=== PATIENT | female | born 1940 | race Caucasian/White ===

== ENCOUNTER 2019-05-07 10:03 | Observation (INO) | payer MEDICARE ==
[2019-05-07] MEDS ORDERED: IPRATROPIUM-ALBUTEROL 3 ML NEB INHALATION STA (10:33)
--- NOTE | 2019-05-07 11:25 | ED ---
SOB HPI - General Chief Complaint: Shortness of Breath Stated Complaint: SOB Time Seen by Provider: 05/07/19 10:10 Source: patient Mode of arrival: wheelchair Limitations: no limitations - History of Present Illness Initial Comments: The patient is a 78-year-old female with no past medical history who presents to the emergency department with reported shortness of breath. States that it is exertional shortness of breath that she's had for the past 8 days. Does admit to a productive cough with yellow sputum. Also has chills with no reported fevers. She denies any sick contacts or recent travel. She did not obtain a flu shot this year. Patient continues to smoke 1.5 packs of cigarettes per day however it has been less than she had sick. She admits to chest tightness however denies any chest pain. No ripping or tearing sensation to her back. Denies any abdominal pain, diarrhea, constipation or melanotic stools. She has taken Tylenol and Mucinex at home for her symptoms without relief. She has never seen a sales route driver. There are no alleviating, precipitating or modifying factors - Related Data Home Medications Medication Instructions Recorded Confirmed Acetaminophen Tab [Tylenol Tab] 325 - 650 mg PO Q4H PRN 05/07/19 05/07/19 Multivitamins, Thera [Multivitamin 1 tab PO DAILY 05/07/19 05/07/19 (formulary)] Allergies Allergy/AdvReac Type Severity Reaction Status Date / Time No Known Allergies Allergy Verified 05/07/19 11:17 Review of Systems ROS Statement: Those systems with pertinent positive or pertinent negative responses have been documented in the HPI. ROS Other: All systems not noted in ROS Statement are negative. Past Medical History Past Medical History: No Reported History History of Any Multi-Drug Resistant Organisms: None Reported Past Surgical History: Appendectomy, Tubal Ligation Past Psychological History: No Psychological Hx Reported Smoking Status: Current every day smoker Past Alcohol Use History: None Reported Past Drug Use History: None Reported - Past Family History Mother Family Medical History: No Reported History General Exam Limitations: no limitations General appearance: alert, in no apparent distress Head exam: Present: atraumatic, normocephalic, normal inspection Eye exam: Present: normal appearance, PERRL, EOMI. Absent: scleral icterus, conjunctival injection, periorbital swelling ENT exam: Present: normal exam, mucous membranes moist Neck exam: Present: normal inspection. Absent: tenderness, meningismus, lymphadenopathy Respiratory exam: Present: wheezes, accessory muscle use, decreased breath sounds, other (tachypnia). Absent: respiratory distress, rales, rhonchi, stridor Cardiovascular Exam: Present: normal rhythm, tachycardia, normal heart sounds. Absent: systolic murmur, diastolic murmur, rubs, gallop, clicks GI/Abdominal exam: Present: soft, normal bowel sounds. Absent: distended, tenderness, guarding, rebound, rigid Extremities exam: Present: normal inspection, full ROM, normal capillary refill. Absent: tenderness, pedal edema, joint swelling, calf tenderness Back exam: Present: normal inspection Neurological exam: Present: alert, oriented X3, CN II-XII intact Psychiatric exam: Present: normal affect, normal mood Skin exam: Present: warm, dry, intact, normal color. Absent: rash Course Vital Signs 05/07/19 05/07/19 05/07/19 10:07 10:42 10:53 Temperature 97.8 F Pulse Rate 96 96 96 Pulse Rate [ Pulse Oximetery ] Respiratory 20 Rate Blood Pressure 139/88 Blood Pressure [Right Arm] O2 Sat by Pulse 99 Oximetry 05/07/19 05/07/19 05/07/19 11:13 11:30 12:00 Temperature 101.1 F H Pulse Rate 118 H 111 H Pulse Rate [ Pulse Oximetery ] Respiratory 22 25 H Rate Blood Pressure 124/72 121/70 Blood Pressure [Right Arm] O2 Sat by Pulse 97 91 L Oximetry 05/07/19 05/07/19 05/07/19 12:30 13:00 13:30 Temperature 99.2 F Pulse Rate 112 H 101 H Pulse Rate [ Pulse Oximetery ] Respiratory 30 H 34 H Rate Blood Pressure 106/62 92/71 103/63 Blood Pressure [Right Arm] O2 Sat by Pulse 92 L 92 L Oximetry 05/07/19 05/07/19 05/07/19 14:00 14:30 15:00 Temperature Pulse Rate 93 93 Pulse Rate [ Pulse Oximetery ] Respiratory 29 H 31 H Rate Blood Pressure 113/63 109/65 Blood Pressure [Right Arm] O2 Sat by Pulse 94 L 93 L Oximetry 05/07/19 05/07/19 05/07/19 15:26 15:35 20:10 Temperature 98.3 F Pulse Rate 93 90 Pulse Rate [ 101 H Pulse Oximetery ] Respiratory 16 16 18 Rate Blood Pressure Blood Pressure 105/63 [Right Arm] O2 Sat by Pulse 93 L Oximetry 05/07/19 05/07/19 20:33 20:44 Temperature Pulse Rate 92 95 Pulse Rate [ Pulse Oximetery ] Respiratory Rate Blood Pressure Blood Pressure [Right Arm] O2 Sat by Pulse Oximetry Medical Decision Making - Medical Decision Making Pulmonary the patient was placed in room 6. A thorough history and physical exam is performed. Peripheral IV is established. The patient was given a DuoNeb breathing treatment. I did recommend laboratory studies. The patient does spike a temperature while within the emergency department. She has a temp of 101.1 and therefore she is given Motrin for fever control. Blood cultures were obtained. Laboratory studies demonstrated with also, 16.5. D-dimer elevated at 1.13. Alk phos 179. Influenza A and B are negative. Patient was originally sent over for chest x-ray which demonstrates COPD with interstitial change. Nodular density right lower lobe. Because of the nodular density with elevated d-dimer I did perform a CTA the patient's chest which demonstrates no pulmonary wasn't. Multiple densities within the right mid and lower lung field. Metastatic disease should be considered. There is also a soft tissue density within the right mid lung. I discussed these results with the patient. She was given a dose of Rocephin and azithromycin. I did recommend hospital admission and she is Sirs 4/4 positive. Patient does agree to this. I discussed case with Dr. Yoon accepted admission. I will place pulmonology on consult. The patient remained in stable condition awaiting a bed on the floor - Lab Data Result diagrams: 05/08/19 08:00 05/11/19 11:34 Lab Results 05/07/19 05/07/19 05/07/19 Range/Units 00:15 04:10 11:03 WBC 16.5 H (3.8-10.6) k/uL RBC 4.34 (3.80-5.40) m/uL Hgb 12.9 (11.4-16.0) gm/dL Hct 37.7 (34.0-46.0) % MCV 86.8 (80.0-100.0) fL MCH 29.6 (25.0-35.0) pg MCHC 34.1 (31.0-37.0) g/dL RDW 14.7 (11.5-15.5) % Plt Count 226 (150-450) k/uL Neutrophils % 86 % Lymphocytes % 8 % Monocytes % 4 % Eosinophils % 1 % Basophils % 0 % Neutrophils # 14.1 H (1.3-7.7) k/uL Lymphocytes # 1.4 (1.0-4.8) k/uL Monocytes # 0.6 (0-1.0) k/uL Eosinophils # 0.1 (0-0.7) k/uL Basophils # 0.0 (0-0.2) k/uL D-Dimer (<0.60) mg/L FEU Sodium (137-145) mmol/L Potassium (3.5-5.1) mmol/L Chloride (98-107) mmol/L Carbon Dioxide (22-30) mmol/L Anion Gap mmol/L BUN (7-17) mg/dL Creatinine (0.52-1.04) mg/dL Est GFR (CKD-EPI)AfAm (>60 ml/min/1.73 sqM) Est GFR (CKD-EPI)NonAf (>60 ml/min/1.73 sqM) Glucose (74-99) mg/dL Calcium (8.4-10.2) mg/dL Total Bilirubin (0.2-1.3) mg/dL AST (14-36) U/L ALT (9-52) U/L Alkaline Phosphatase (38-126) U/L Troponin I <0.012 (0.000-0.034) ng/mL NT-Pro-B Natriuret Pep pg/mL Total Protein (6.3-8.2) g/dL Albumin (3.5-5.0) g/dL Influenza Type A RNA (Not Detectd) Influenza Type B (PCR) (Not Detectd) Urine Legionella Ag Not detected (Not detected) 05/07/19 05/07/19 05/07/19 Range/Units 11:03 11:03 11:03 WBC (3.8-10.6) k/uL RBC (3.80-5.40) m/uL Hgb (11.4-16.0) gm/dL Hct (34.0-46.0) % MCV (80.0-100.0) fL MCH (25.0-35.0) pg MCHC (31.0-37.0) g/dL RDW (11.5-15.5) % Plt Count (150-450) k/uL Neutrophils % % Lymphocytes % % Monocytes % % Eosinophils % % Basophils % % Neutrophils # (1.3-7.7) k/uL Lymphocytes # (1.0-4.8) k/uL Monocytes # (0-1.0) k/uL Eosinophils # (0-0.7) k/uL Basophils # (0-0.2) k/uL D-Dimer 1.13 H (<0.60) mg/L FEU Sodium 137 (137-145) mmol/L Potassium 4.6 (3.5-5.1) mmol/L Chloride 101 (98-107) mmol/L Carbon Dioxide 24 (22-30) mmol/L Anion Gap 12 mmol/L BUN 11 (7-17) mg/dL Creatinine 0.47 L (0.52-1.04) mg/dL Est GFR (CKD-EPI)AfAm >90 (>60 ml/min/1.73 sqM) Est GFR (CKD-EPI)NonAf >90 (>60 ml/min/1.73 sqM) Glucose 96 (74-99) mg/dL Calcium 10.1 (8.4-10.2) mg/dL Total Bilirubin 0.6 (0.2-1.3) mg/dL AST 36 (14-36) U/L ALT 72 H (9-52) U/L Alkaline Phosphatase 179 H (38-126) U/L Troponin I (0.000-0.034) ng/mL NT-Pro-B Natriuret Pep 178 pg/mL Total Protein 7.5 (6.3-8.2) g/dL Albumin 4.0 (3.5-5.0) g/dL Influenza Type A RNA (Not Detectd) Influenza Type B (PCR) (Not Detectd) Urine Legionella Ag (Not detected) 05/07/19 Range/Units 11:03 WBC (3.8-10.6) k/uL RBC (3.80-5.40) m/uL Hgb (11.4-16.0) gm/dL Hct (34.0-46.0) % MCV (80.0-100.0) fL MCH (25.0-35.0) pg MCHC (31.0-37.0) g/dL RDW (11.5-15.5) % Plt Count (150-450) k/uL Neutrophils % % Lymphocytes % % Monocytes % % Eosinophils % % Basophils % % Neutrophils # (1.3-7.7) k/uL Lymphocytes # (1.0-4.8) k/uL Monocytes # (0-1.0) k/uL Eosinophils # (0-0.7) k/uL Basophils # (0-0.2) k/uL D-Dimer (<0.60) mg/L FEU Sodium (137-145) mmol/L Potassium (3.5-5.1) mmol/L Chloride (98-107) mmol/L Carbon Dioxide (22-30) mmol/L Anion Gap mmol/L BUN (7-17) mg/dL Creatinine (0.52-1.04) mg/dL Est GFR (CKD-EPI)AfAm (>60 ml/min/1.73 sqM) Est GFR (CKD-EPI)NonAf (>60 ml/min/1.73 sqM) Glucose (74-99) mg/dL Calcium (8.4-10.2) mg/dL Total Bilirubin (0.2-1.3) mg/dL AST (14-36) U/L ALT (9-52) U/L Alkaline Phosphatase (38-126) U/L Troponin I (0.000-0.034) ng/mL NT-Pro-B Natriuret Pep pg/mL Total Protein (6.3-8.2) g/dL Albumin (3.5-5.0) g/dL Influenza Type A RNA Not Detected (Not Detectd) Influenza Type B (PCR) Not Detected (Not Detectd) Urine Legionella Ag (Not detected) - EKG Data EKG Comments: EKG demonstrates a sinus tachycardia at a ventricular rate of 132. MS interval 142. QRS 82. QTC of 433. There are no acute ST segment elevations or depressions concerning for ischemic changes Disposition Clinical Impression: Acute respiratory failure, Pneumonia Disposition: ADMITTED IP TO THIS HOSP Condition: Stable Is patient prescribed a controlled substance at d/c from ED?: No Decision to Admit Reason: Admit from EC Decision Date: 05/07/19 Decision Time: 14:40
[2019-05-07] MEDS ORDERED: IBUPROFEN 600 MG TAB PO STA (11:30)
[2019-05-07 11:50] LABS: Basophils % (A) 0 %; Eosinophils # (A) 0.1 k/uL (0-0.7); Eosinophils % (A) 1 %; HCT 37.7 % (34.0-46.0); HGB 12.9 gm/dL (11.4-16.0); Lymphocytes # (A) 1.4 k/uL (1.0-4.8); Lymphocytes % (A) 8 %; MCH 29.6 pg (25.0-35.0); MCHC 34.1 g/dL (31.0-37.0); MCV 86.8 fL (80.0-100.0); Mean Platelet Volume 9.2; Monocytes # (A) 0.6 k/uL (0-1.0); Monocytes % (A) 4 %; Neutrophils # (A) 14.1 k/uL (1.3-7.7); Neutrophils % (A) 86 %; Platelet Count 226 k/uL (150-450); RBC 4.34 m/uL (3.80-5.40); RDW 14.7 % (11.5-15.5); WBC 16.5 k/uL (3.8-10.6)
[2019-05-07 12:03] LABS: ALT 72 U/L (9-52); AST 36 U/L (14-36); African American GFR (CKD) >90 (>60 ml/min/1.73 sqM); Alkaline Phosphatase 179 U/L (38-126); Anion Gap 12 mmol/L; Blood Urea Nitrogen 11 mg/dL (7-17); Calcium 10.1 mg/dL (8.4-10.2); Carbon Dioxide 24 mmol/L (22-30); Chloride 101 mmol/L (98-107); Glucose 96 mg/dL (74-99); Non-African American GFR(CKD) >90 (>60 ml/min/1.73 sqM); Potassium 4.6 mmol/L (3.5-5.1); Sodium 137 mmol/L (137-145); Total Bilirubin 0.6 mg/dL (0.2-1.3); Total Protein 7.5 g/dL (6.3-8.2)
--- NOTE | 2019-05-07 12:03 | XR ---
EXAMINATION TYPE: XR chest 2V DATE OF EXAM: 05/07/2019 COMPARISON: NONE TECHNIQUE: PA and lateral views submitted. HISTORY: sob FINDINGS: The lungs are clear and there is no pneumothorax, pleural effusion, or focal pneumonia. Diffuse int erstitial pattern. Hyperinflation suggests COPD. Diffuse osteopenia. Curvature the spine with degener ative changes. Nodular density involving the right lower lobe. IMPRESSION: 1. COPD with interstitial changes which could be on the basis of chronic interstitial lung disease or interstitial pneumonitis correlate clinically. 2. Nodular density right lower lobe recommend bilateral oblique views of the chest or CT chest.
[2019-05-07] MEDS ORDERED: AZITHROMYCIN 500 MG in SODIUM CHLORIDE 0.9% 250 ML IVPB STA (12:52)
[2019-05-07] MEDS ORDERED: cefTRIAXone IN SWFI 1,000 MG/10 ML SYRINGE IVP STA (12:52)
--- NOTE | 2019-05-07 14:05 | CT ---
CT CHEST FOR PULMONARY EMBOLISM. EXAMINATION TYPE: CT chest angio for PE DATE OF EXAM: 05/07/2019 INDICATION: SOB, chest pain CT DLP: 172.1 mGycm, Automated exposure control for dose reduction was used. CONTRAST: Patient injected with 100 mL of Isovue 370. COMPARISON: None TECHNIQUE: CT of the chest is performed on a spiral scan at 2 mm thick sections. Study is performed with intravenous contrast timed for evaluation for pulmonary embolism. This will limit additional po rtions of the evaluation. 3-D MIP images reconstructed by the technologist are reviewed on the compu ter in the coronal and sagittal planes. FINDINGS: No persistent filling defects are evident to suggest an acute pulmonary embolism. No mediastinal or hilar adenopathy enlarged by CT criteria is evident. The ascending aorta diameter at the level of the main pulmonary artery is 3.4 cm. The main pulmonary artery diameter at the bifur cation is 2.3 cm. Some right apical thickening is present. Emphysematous changes are present bilaterally. There is an irregular density within the posterior lateral right midlung measuring 1.2 cm. Series 406 image 54. Neoplasm should be considered. There is an ill-defined area of increased density within th e right midlung measuring 0.5 cm. Series 406 image 72. Areas of increased density in the right lower lobe. Emphysematous blebs and bulla are present. Pneumonitis changes are present. There may be a 0.5 cm density in the posterior lateral right lower lobe. Series 406 image 108. There is a density within the right lower lobe measuring 2.5 x 1.5 cm. Series 406 image 122. There are some adjacent soft tiss ue type density measuring 0.7-0.5 cm in size. Series 406 image 123. A 0.7 cm density may be in the po sterior right lung base. Series 406 image 129 additional soft tissue density or pneumonitis changes i n the posterior medial right lung base measuring 1.9 x 1.1 cm. Series [address] section through the upper abdomen. There is a 1.0 cm hypodensity within the right lobe randy er measuring 5 Hounsfield units most likely is a hepatic cyst. IMPRESSIONS: 1. No acute pulmonary embolism. 2. Multiple densities within the right mid and lower lung field. Metastatic disease should be conside red. This can be compatible with consolidation in the proper clinical setting. Follow-up is recommend ed. 3. Soft tissue density within the right midlung appears more suspicious for neoplastic process. PET/C T can be performed when clinically appropriate.
[2019-05-07] MEDS ORDERED: IBUPROFEN 400 MG TAB PO PRN (14:41)
[2019-05-07] MEDS ORDERED: ACETAMINOPHEN TAB 325 MG TAB PO PRN (14:41)
[2019-05-07] MEDS ORDERED: NALOXONE 0.4 MG/ML 1 ML VIAL IV PRN (14:41)
[2019-05-07] MEDS: IPRATROPIUM-ALBUTEROL 3 ML NEB INHALATION SCH ×2 (15:26→20:31)
[2019-05-07] MEDS ORDERED: MELATONIN 3 MG TABLET PO PRN (21:14)
[2019-05-07] MEDS ORDERED: HYDROcodone/APAP 5-325MG 1 EACH TAB PO PRN (21:14)
[2019-05-07] MEDS ORDERED: ALPRAZolam 0.25 MG TAB PO PRN (21:14)
[2019-05-07] MEDS ORDERED: TEMAZEPAM 15 MG CAP PO PRN (21:14)
[2019-05-07 23:16] LABS: ALT 54 U/L (9-52); AST 27 U/L (14-36); African American GFR (CKD) >90 (>60 ml/min/1.73 sqM); Albumin 3.3 g/dL (3.5-5.0); Alkaline Phosphatase 146 U/L (38-126); Anion Gap 7 mmol/L; Blood Urea Nitrogen 16 mg/dL (7-17); Calcium 9.2 mg/dL (8.4-10.2); Carbon Dioxide 26 mmol/L (22-30); Chloride 103 mmol/L (98-107); Glucose 109 mg/dL (74-99); Non-African American GFR(CKD) >90 (>60 ml/min/1.73 sqM); Potassium 4.7 mmol/L (3.5-5.1); Sodium 136 mmol/L (137-145); Total Bilirubin 0.3 mg/dL (0.2-1.3); Total Protein 6.6 g/dL (6.3-8.2)
[2019-05-08] MEDS: IPRATROPIUM-ALBUTEROL 3 ML NEB INHALATION SCH ×6 (00:02→20:20)
--- NOTE | 2019-05-08 05:23 | HP ---
HISTORY AND PHYSICAL DATE OF SERVICE: 05/07/2019 CHIEF COMPLAINT: Shortness of breath and cough. HISTORY OF PRESENT ILLNESS: This 78-year-old woman with a past medical history of multiple medical problems including tubal ligation, appendectomy, history of nicotine dependence, being followed by Dr. Albarran in the outpatient setting was not feeling well over the past several days. The patient is having progressive cough and sputum. The patient also has exertional shortness of breath for the last 8 days, which is increased in intensity. Because of increasing sputum, patient came to [facility] and was admitted to the hospital for further evaluation and treatment. Patient continues to smoke about 1-1/2 packs per day. The initial chest x-ray showed some interstitial shadows and CT angio of the chest showed no evidence of pulmonary embolism, but showed multiple bilateral initial shadows and pneumonia with possibly some cavitary lesions mainly in the right lower lobe also. Patient was admitted to the hospital for further evaluation and treatment. There is some chest tightness according to her. There is no history of fever, rigors or chills. No history of headache, loss of consciousness, seizures. PAST MEDICAL HISTORY: History of appendectomy, tubal ligation, history nicotine dependence. MEDICATION: Home medications are multivitamins, Tylenol p.r.n. ALLERGIES: None. FAMILY HISTORY: No history of heart disease or strokes in the family. SOCIAL HISTORY: History of smoking one and one half package of cigarettes a day. No history of alcohol intake. REVIEW OF SYSTEMS: ENT: Diminished vision. Diminished hearing. CARDIOVASCULAR system as mentioned earlier. RESPIRATIONS as mentioned earlier. GI no nausea or vomiting. no dysuria. Nervous system: No numbness or weakness. Allergy/Immunology: No asthma or hayfever. MUSCULOSKELETAL as mentioned earlier. HEMATOLOGY: No history of anemia. ENDOCRINE: No history of diabetes or hypothyroidism. CONSTITUTIONAL: As mentioned earlier. DERMATOLOGY: Negative. RHEUMATOLOGY negative. PSYCHIATRY as mentioned earlier. PHYSICAL EXAMINATION: GENERAL: The patient is alert and oriented x3. The patient is severely emaciated, generalized emaciation. VITAL SIGNS: Pulse is 101. Blood pressure 105/63, respiration 18, temperature 98.3, pulse ox 93 percent on room air. HEENT: Conjunctivae normal. Oral mucosa moist. NECK is no jugular venous distention. No carotid bruit. No lymph node enlargement. CARDIOVASCULAR system: S1, S2 muffled. No S3, no S4. RESPIRATORY: Breath sounds diminished in the bases. Bilateral scattered rhonchi and crackles. Expiratory wheezing also present. ABDOMEN: Soft, nontender. No mass palpable. LEGS: No edema. No swelling. NERVOUS SYSTEM: Higher functions as mentioned earlier. Moves all 4 limbs. No focal motor or sensory deficit. LYMPHATICS: No lymph nodes palpable in the neck, axillae or groin. SKIN: No ulcer, rash or bleeding. JOINTS: No active deforming arthropathy. LAB STUDIES: WBC 16.5. D-dimer to 1.13, ALT 72, alkaline phosphatase 117. ASSESSMENT: 1. Acute bilateral interstitial pneumonia or bronchopneumonia with possible severe acute respiratory syndrome present on admission, right more than the left. 2. Increased WBC. 3. Increased D-dimer with no evidence of pulmonary embolism. 4. Increased ALT and alkaline phosphatase. 5. History of appendectomy. 6. History of tubal ligation. 7. History of continued ongoing nicotine dependence. 8. Severe protein calorie malnutrition with BMI of 18.6. RECOMMENDATIONS AND DISCUSSION: This 78-year-old woman who presented with multiple medical issues, at this time, I recommend to continue current medications, management and symptomatic treatment. We will initiate broad-spectrum IV antibiotics, bronchodilators, pulmonary consultation from Dr. Boucher for possible bronchoscopy and further evaluation. Otherwise, sputum culture also will be obtained including the baseline testing. Guarded prognosis because of multiple complex medical issues. Symptomatic treatment also provided. Smoking cessation has been recommended. A copy of dictation being forwarded to Dr. Albarran who is the primary physician. Prognosis guarded. MMODL / IJN: [id number] /
[2019-05-08] MEDS: MULTIVITAMINS, THERA 1 EACH TAB PO SCH (07:33)
[2019-05-08] MEDS: HEPARIN SODIUM,PORCINE 5,000 UNIT/ML 1 ML VIAL SQ SCH ×2 (07:34→20:06)
[2019-05-08] MEDS: NICOTINE 14MG/24HR PATCH TRANSDERM SCH (07:35)
[2019-05-08] MEDS: PANTOPRAZOLE 40 MG TABLET PO SCH (07:40)
[2019-05-08 08:40] LABS: Basophils % (A) 0 %; Eosinophils % (A) 0 %; HCT 33.6 % (34.0-46.0); HGB 11.3 gm/dL (11.4-16.0); Lymphocytes % (A) 21 %; MCH 29.4 pg (25.0-35.0); MCHC 33.6 g/dL (31.0-37.0); MCV 87.5 fL (80.0-100.0); Mean Platelet Volume 10.7; Monocytes # (A) 0.4 k/uL (0-1.0); Monocytes % (A) 4 %; Neutrophils % (A) 72 %; Platelet Count 207 k/uL (150-450); RBC 3.84 m/uL (3.80-5.40); RDW 14.9 % (11.5-15.5); WBC 9.7 k/uL (3.8-10.6)
[2019-05-08 08:45] LABS: African American GFR (CKD) >90 (>60 ml/min/1.73 sqM); Anion Gap 9 mmol/L; Blood Urea Nitrogen 10 mg/dL (7-17); Calcium 9.2 mg/dL (8.4-10.2); Carbon Dioxide 27 mmol/L (22-30); Chloride 102 mmol/L (98-107); Glucose 146 mg/dL (74-99); Non-African American GFR(CKD) >90 (>60 ml/min/1.73 sqM); Potassium 4.5 mmol/L (3.5-5.1); Sodium 138 mmol/L (137-145)
[2019-05-08] MEDS ORDERED: AZITHROMYCIN 500 MG in SODIUM CHLORIDE 0.9% 250 ML IVPB SCH (09:00)
[2019-05-08 11:56] VITALS: BMI 18.6
--- NOTE | 2019-05-08 15:08 | P.CNPUL ---
History of Present Illness Consult date: 05/08/19 Requesting physician: Bob Yoon Reason for consult: dyspnea, cough, chest pain, pneumonia Chief complaint: Shortness of breath, cough with phlegm production History of present illness: This is a 78-year-old white female patient of Dr. Albarran, although she has not seen him in the last 2 or 3 years, with history of 47 years of smoking, 1-1/2 packs per day, previous history of pneumonia, history of multiple sclerosis and patient used to be under the care of Dr. Vaughn not on any maintenance med ications for it, patient takes no prescription medications. Patient came into the emergency department on 05/07/2019 for evaluation of worsening shortness of breath, patient complained of having a bad cold for last 2 weeks, with cough, sinus headaches, yellow phlegm production. Yesterday her breathing got particularly worse, and patient was having worsening cough, and soreness across the upper back in the rib cage, denied any hemoptysis, patient was febrile on admission, with a temp of 101.1 degrees Fahrenheit, she is 92% on room air, hemodynamically stable, chest x-ray was completed showing COPD with interstitial changes and nodular density in the right lower lobe, and the CTA chest was c ompleted showing no evidence of pulmonary embolism, however did show multiple densities within the right mid and lower lung field, and soft tissue density within the right midlung was suspicious for neoplastic process. Admission blood work showed leukocytosis with white blood cell count is 16.5, hemoglobin was 12.9, electrolytes and renal profile were unremarkable, ALT and alkaline phosphatase were mildly elevated at 72 and 179 respectively, 3 sets of troponins were negative, proBNP was within normal limits at 178, influenza screen was negative. Patient was started on Rocephin and Zithromax, neb bronchodilators, and were consulted in regards to right mid and lower lung pneumonia with cons ideration to neoplastic process that could not totally be excluded Review of Systems All systems: negative Constitutional: Denies chills, Denies fever Eyes: denies blurred vision, denies pain Ears, nose, mouth and throat: Denies headache, Denies sore throat Cardiovascular: Denies shortness of breath Respiratory: Reports cough with sputum, Reports dyspnea, Denies cough Gastrointestinal: Denies abdominal pain, Denies diarrhea, Denies nausea, Denies vomiting Genitourinary: Denies dysuria, Denies hematuria Musculoskeletal: Denies myalgias Integumentary: Denies pruritus, Denies rash Neurological: Denies numbness, Denies weakness Psychiatric: Denies anxiety, Denies depression Endocrine: Denies fatigue, Denies weight change Past Medical History Past Medical History: No Reported History History of Any Multi-Drug Resistant Organisms: None Reported Past Surgical History: Appendectomy, Tubal Ligation Past Psychological History: No Psychological Hx Reported Smoking Status: Current every day smoker Past Alcohol Use History: None Reported Past Drug Use History: None Reported - Past Family History Mother Family Medical History: No Reported History Medications and Allergies Home Medications Medication Instructions Recorded Confirmed Type Acetaminophen Tab [Tylenol Tab] 325 - 650 mg PO Q4H PRN 05/07/19 05/07/19 History Multivitamins, Thera [Multivitamin 1 tab PO DAILY 05/07/19 05/07/19 History (formulary)] Allergies Allergy/AdvReac Type Severity Reaction Status Date / Time No Known Allergies Allergy Verified 05/07/19 11:17 Physical Exam Vitals: Vital Signs Temp Pulse Pulse Resp BP BP Pulse Ox 05/08/19 12:31 97.5 F L 94 16 119/56 92 L 05/08/19 11:52 96 05/08/19 11:40 100 05/08/19 07:58 92 05/08/19 07:45 92 05/08/19 05:39 98.4 F 104 H 16 103/57 92 L 05/08/19 00:10 102 H 18 05/07/19 20:44 95 05/07/19 20:33 92 05/07/19 20:10 98.3 F 101 H 18 105/63 93 L 05/07/19 15:35 90 16 05/07/19 15:26 93 16 05/07/19 15:00 109/65 Intake and Output 05/07/19 05/08/19 05/08/19 22:59 06:59 14:59 Intake Total 240 120 120 Balance 240 120 120 Intake: Oral 240 120 120 Other: # Voids 1 2 Weight 47.627 kg 47.627 kg GENERAL EXAM: Alert, very pleasant, thin 78-year-old white female on room air, with a pulse ox of 92% comfortable in no apparent distress. HEAD: Normocephalic/atraumatic. EYES: Normal reaction of pupils, equal size. Conjunctiva pink, sclera white. NOSE: Clear with pink turbinates. THROAT: No erythema or exudates. NECK: No masses, no JVD, no thyroid enlargement, no adenopathy. CHEST: No chest wall deformity. Symmetrical expansion. LUNGS: Equal air entry with diffuse crackles at the bases, diminished breath sounds bilaterally, no wheeze, rhonchi or dullness. CVS: Regular rate and rhythm, normal S1 and S2, no gallops, no murmurs, no rubs ABDOMEN: Soft, nontender. No hepatosplenomegaly, normal bowel sounds, no guarding or rigidity. EXTREMITIES: No clubbing, no edema, no cyanosis, 2+ pulses and upper and lower extremities. MUSCULOSKELETAL: Muscle strength and tone normal. SPINE: No scoliosis or deformity SKIN: No rashes CENTRAL NERVOUS SYSTEM: Alert and oriented -3. No focal deficits, tone is normal in all 4 extremities. PSYCHIATRIC: Alert and oriented -3. Appropriate affect. Intact judgment and insight. Results - Laboratory Findings CBC and BMP: 05/08/19 08:00 05/08/19 08:00 PT/INR, D-dimer D-Dimer 1.13 mg/L FEU (<0.60) H 05/07/19 11:03 Abnormal lab findings: Abnormal Labs 05/07/19 05/07/19 05/07/19 11:03 11:03 11:03 WBC 16.5 H Hgb Hct Neutrophils # 14.1 H D-Dimer 1.13 H Sodium Creatinine 0.47 L Glucose ALT 72 H Alkaline Phosphatase 179 H Albumin 05/07/19 05/08/19 05/08/19 22:51 08:00 08:00 WBC Hgb 11.3 L Hct 33.6 L Neutrophils # D-Dimer Sodium 136 L Creatinine Glucose 109 H 146 H ALT 54 H Alkaline Phosphatase 146 H Albumin 3.3 L - Diagnostic Findings Chest x-ray: report reviewed, image reviewed CT scan - chest: report reviewed, image reviewed Assessment and Plan Plan: Assessment: #1. Acute dyspnea related to right middle and right lower lobe pneumonia, c ommunity acquired. CTA chest was negative for evidence of pulmonary embolism, but did show multiple densities in the right mid and lower lung ag. Soft tissue density within the right midlung is suspicious for neoplastic process and will be followed up #2. Extensive history of smoking, 47 years of one half packs per day #3. Previous history of pneumonia #4. Recent history of upper respiratory infection #5. Patient gives history of multiple sclerosis, used to follow with neurology, not on maintenance treatment Plan: Continue current antibiotics, nebulized treatments, send a sputum for culture. Influenza screen was negative, CT chest reviewed showing right middle and right lower lobe consolidation, likely related to pneumonia, of the possibility of underlying malignancy is not completely excluded, and patient will be followed closely to monitor for improvement. Smoking cessation was recommended. Continue GI and DVT prophylaxis. I performed a history & physical examination of the patient and discussed their management with my nurse practitioner, Christi Crespo. I reviewed the nurse practitioner's note and agree with the documented findings and plan of care. Lung sounds are positive for bibasilar rales. The findings and the impression was discussed with the patient. I attest to the documentation by the nurse practitioner. Time with Patient: Greater than 30
--- NOTE | 2019-05-08 18:08 | PN ---
PROGRESS NOTE DATE OF SERVICE: 05/08/2019 This 78-year-old woman who was admitted with acute bilateral multifocal pneumonia is being closely monitored. Patient was started on IV antibiotics. White count is 7.5 at this time. Cultures are pending at this time. Influenza is negative. The patient was also seen by Dr. Boucher today, who recommended continuing the antibiotics and continuing to monitor. Bronchoscopy is not being planned at this time. Past medical history reviewed. REVIEW OF SYSTEMS: CARDIOVASCULAR SYSTEM: As mentioned earlier. RESPIRATORY SYSTEM: As mentioned earlier. GI: No nausea, vomiting. : No dysuria or retention. NERVOUS SYSTEM: No numbness, weakness. CURRENT MEDICATIONS: Reviewed. They include: 1. Tylenol p.r.n. 2. Lapel 5 mg. 3. DuoNeb q.i.d. and p.r.n. 4. Xanax 0.25 t.i.d. 5. Zithromax 500 mg p.o. daily. 6. Rocephin 1 gram daily. 7. Heparin 5000 units subcutaneously b.i.d. 8. Motrin 400 mg. 9. Melatonin 3 mg at bedtime. 10.Multivitamins. 11.Narcan. 12.Habitrol. 13.Protonix. 14.Restoril. PHYSICAL EXAMINATION: Patient is alert, oriented x3. Pulse 94, blood pressure 119/56, respirations 16, temperature 97.4, pulse ox 92% on room air. HEENT: Conjunctivae normal. NECK: No jugular venous distention. CARDIOVASCULAR SYSTEM: S1, S2 muffled. RESPIRATORY SYSTEM: Breath sounds diminished at the bases. A few scattered rhonchi and crackles. Expiratory wheezing also present. ABDOMEN: Soft, non-tender. LEGS: No edema. No swelling. NERVOUS SYSTEM: Mild diffuse weakness and wasting also present. LABS: WBC 9.7, hemoglobin 11.3, sodium 138. ASSESSMENT: 1. Acute bilateral interstitial pneumonia or bronchopneumonia with systemic inflammatory response syndrome, present on admission, right more than the left. 2. Increased white count. 3. Possible chronic obstructive pulmonary disease. 4. Increased D-dimer with no evidence of pulmonary embolism. 5. Increased ALT and alkaline phosphatase. 6. History of appendectomy. 7. Tubal ligation. 8. History of continued ongoing nicotine dependence. 9. Severe protein-calorie malnutrition with a body mass index of 18.6. RECOMMENDATIONS AND DISCUSSION: I recommend to continue current medications, continue with the monitoring, symptomatic treatment. Otherwise at this time I would recommend continuing with the antibiotics. D- dimer is 1.13. There is no evidence of pulmonary embolism. Closely follow with Dr. Boucher and continue to monitor. Further recommendations to follow. Prognosis is guarded. MMODL / IJN: [id number] /
[2019-05-08] MEDS ORDERED: IPRATROPIUM-ALBUTEROL 3 ML NEB INHALATION PRN (21:30)
[2019-05-09] MEDS: PANTOPRAZOLE 40 MG TABLET PO SCH (09:00)
[2019-05-09] MEDS: MULTIVITAMINS, THERA 1 EACH TAB PO SCH (09:00)
[2019-05-09] MEDS: HEPARIN SODIUM,PORCINE 5,000 UNIT/ML 1 ML VIAL SQ SCH ×2 (09:00→19:49)
[2019-05-09] MEDS: AZITHROMYCIN 500 MG TAB PO SCH (09:00)
[2019-05-09] MEDS: NICOTINE 14MG/24HR PATCH TRANSDERM SCH (09:00)
[2019-05-09] MEDS: IPRATROPIUM-ALBUTEROL 3 ML NEB INHALATION SCH ×4 (10:01→20:54)
--- NOTE | 2019-05-09 13:48 | P.PN ---
Subjective Progress Note Date: 05/09/19 Principal diagnosis: Acute community-acquired right lobe and right lower lobe pneumonia This is a 78-year-old white female patient of Dr. Albarran, although she has not seen him in the last 2 or 3 years, with history of 47 years of smoking, 1-1/2 packs per day, previous history of pneumonia, history of multiple sclerosis and patient used to be under the care of Dr. Vaughn not on any maintenance medications for it, patient takes no prescription medications. Patient came into the emergency department on 05/07/2019 for evaluation of worsening shortness of breath, patient complained of having a bad cold for last 2 weeks, with cough, sinus headaches, yellow phlegm production. Yesterday her breathing got particularly worse, and patient was having worsening cough, and soreness a cross the upper back in the rib cage, denied any hemoptysis, patient was febrile on admission, with a temp of 101.1 degrees Fahrenheit, she is 92% on room air, hemodynamically stable, chest x-ray was completed showing COPD with interstitial changes and nodular density in the right lower lobe, and the CTA chest was completed showing no evidence of pulmonary embolism, however did show multiple densities within the right mid and lower lung field, and soft tissue density within the right midlung was suspicious for neoplastic process. Admission blood work showed leukocytosis with white blood cell count is 16.5, hemoglobin was 12.9, electrolytes and renal profile were unremarkable, ALT and alkaline phosphatase were mildly elevated at 72 and 179 respectively, 3 sets of troponins were negative, proBNP was within normal limits at 178, influenza screen was negative. Patient was started on Rocephin and Zithromax, neb bronchodilators, and were consulted in regards to right mid and lower lung pneumonia with consideration to neoplastic process that could not totally be excluded Reevaluated today on 05/09/2019, patient is feeling a bit better, breathing a bit easier, less cough, less wheezing, less shortness of breath, and no further episodes of fever. Her temp is 98.1 today, blood pressure is stable, O2 saturations 95% on room air. Patient is presently on antibiotics and bronchodilators, and she was made aware again by me today about the findings on her CT of the chest, and she was definitely need a close follow-up on outpatient basis, as there may be some suspicion for possible underlying malignancy involving the right lower lobe. I would recommend repeat CT of the chest and a month, and may even consider a PET scan on this patient. She does have nodular infiltrates, and malignancy is not entirely ruled out. Objective - Vital Signs Vital signs: Vital Signs Temp 98.1 F 05/09/19 12:56 Pulse 93 05/09/19 12:56 Resp 17 05/09/19 12:56 BP 123/69 05/09/19 12:56 Pulse Ox 95 05/09/19 12:56 Intake & Output 05/08/19 05/09/19 05/09/19 18:59 06:59 18:59 Intake Total 240 Balance 240 Weight 47.627 kg Intake: Oral 240 Other: Voiding Method Toilet Toilet # Voids 2 1 - Exam GENERAL EXAM: Alert, very pleasant, thin 78-year-old white female on room air, in no distress HEAD: Normocephalic/atraumatic. ENT: PERRLA, EOMI, no active, dry mucous membranes. No JVD, no thyromegaly. CHEST: No chest wall deformity. Symmetrical expansion. LUNGS: Minimal fine crackles at the bases especially at the right base, no whee zes. CVS: Regular rate and rhythm, normal S1 and S2, no gallops, no murmurs, no rubs ABDOMEN: Soft, nontender. No hepatosplenomegaly, normal bowel sounds, no guarding or rigidity. EXTREMITIES: No clubbing, no edema, no cyanosis, 2+ pulses and upper and lower extremities. MUSCULOSKELETAL: Muscle strength and tone normal. SPINE: No scoliosis or deformity SKIN: No rashes CENTRAL NERVOUS SYSTEM: No gross focal deficits, alert oriented 3. PSYCHIATRIC: Normal mood, affect and normal mental status examination - Labs CBC & Chem 7: 05/08/19 08:00 05/08/19 08:00 Labs: Microbiology - Last 24 Hours (Table) 05/08/19 07:50 Gram Stain - Preliminary Sputum Sputum Culture - Preliminary 05/07/19 11:03 Blood Culture - Preliminary Blood No Growth after 24 hours Assessment and Plan Assessment: #1. Acute community-acquired right middle lobe and right lower lobe pneumonia, however the findings on the CT of the chest are concerning for possible underlying malignancy. Hence the patient will be treated empirically with antibiotics, bronchodilators, and she will need a follow-up CT of the chest in the next month, ostomy consider a PET scan on outpatient basis. May even require navigational bronchoscopy in the future. #2. Extensive history of smoking, 47 years of one half packs per day #3. Previous history of pneumonia #4. Recent history of upper respiratory infection #5. Patient gives history of multiple sclerosis, used to follow with neurology, not on maintenance treatment #6 suspect acute exacerbation of COPD. Hence we'll continue bronchodilators. Recommendation: Continue present treatment plan including bronchodilators, antibiotics, steroids, and possibly repeat the chest x-ray on Saturday, if not any worse, consider discharge planning by Saturday, and she should have follow-up in our office on outpatient basis, patient may eventually require bronchoscopy for further evaluation of the abnormal process in the right middle lobe and right lower lobe especially if it doesn't resolve. Patient was made aware of this, and verbalized understanding of communication discussed Time with Patient: Less than 30
--- NOTE | 2019-05-09 17:06 | XR ---
EXAMINATION TYPE: XR chest 1V portable DATE OF EXAM: 05/09/2019 COMPARISON: 05/07/2019 HISTORY: Follow-up pneumonia TECHNIQUE: Single frontal view of the chest is obtained. FINDINGS: Suspicion for right lower lobe pulmonary nodule. Hyperinflation suggests COPD. Vague ill-d efined nodule right upper lobe. Coarsened interstitium. Diffuse osteopenia. Atherosclerotic change ao rta. No pleural effusion or focal pneumonia. IMPRESSION: 1. Correlate for COPD. Interstitial changes could be chronic in the basis of chronic interstitial fatmata g disease. 2. Multiple pulmonary nodules on the right suspected
--- NOTE | 2019-05-09 20:08 | PN ---
PROGRESS NOTE DATE OF SERVICE: 05/09/2019 This 77-year-old woman is admitted with acute bilateral interstitial pneumonia, multifocal pneumonia is being closely followed by Dr. Boucher also. The patient complains of shortness of breath. The patient is on bronchodilators, steroids, empiric antibiotics. Patient being closely monitored. The possibility of underlying malignancy has to be ruled out because of the chest CTA findings which showed multiple densities in the right middle lobe. Consolidation also a possibility. PAST MEDICAL HISTORY: Reviewed. REVIEW OF SYSTEMS: Cardiovascular: No angina or palpitations. Respiratory: As mentioned earlier. GI: As mentioned earlier. : No dysuria or retention. CENTRAL NERVOUS SYSTEM: No numbness or weakness. CURRENT MEDICATIONS: Reviewed and include: 1. Tylenol 650 q.6h p.r.n. 2. Addison 5 mg q.6h. 3. DuoNeb q.i.d. and p.r.n. 4. Xanax 0.25 t.i.d. 5. Synthroid 200 mcg p.o. daily. 6. Zithromax. 7. Rocephin 1 g IV daily. 8. Heparin b.i.d. 9. Motrin. 10.Melatonin. 11.Multivitamins. 12.Narcan. 13.Habitrol. 14.Protonix. 15.Restoril. Doses reviewed. PHYSICAL EXAM: Patient is alert and oriented times three. Pulse 93, blood pressure 127/69, respirations 17, temperature 98.2, pulse ox 94% on room air. HEENT is conjunctivae normal. NECK: No JVD. CARDIOVASCULAR: S1, S2 muffled. RESPIRATORY SYSTEM: Breath sounds diminished at the bases. Bilateral scattered rhonchi. Expiratory wheezing and crackles. ABDOMEN: Soft, nontender. LEGS are no edema, no swelling. CENTRAL NERVOUS SYSTEM: No focal deficits. LAB STUDIES: WBC 9.7, hemoglobin 11.3. Sodium 138, potassium 4.5. Influenza is negative. ASSESSMENT: 1. Acute bilateral interstitial pneumonia possibly community-acquired, possibly interstitial bronchopneumonia with severe acute respiratory syndrome present on admission, right more the left. 2. Increased WBC. 3. Rule out metastatic disease. 4. Possible chronic obstructive pulmonary disease. 5. Increased D-dimer with no evidence of pulmonary embolus. 6. History of appendectomy. 7. Increased ALT and alkaline phosphatase. 8. History of tubal ligation. 9. History of continued ongoing nicotine dependence. 10.Severe protein calorie malnutrition with body mass index 18.6. RECOMMENDATIONS AND DISCUSSION: I recommend to continue current medications, continue with monitoring, symptomatic treatment, management. Continue the bronchodilators. We will continue steroids. Importance of compliance was stressed. The patient is being seen by Dr. Albarran in the outpatient setting. I recommend close followup with Dr. Albarran in the outpatient setting. Prognosis guarded. Further recommendations to follow. While in the hospital, closely follow with Dr. Boucher and continue to monitor. Further recommendations to follow. We will repeat an x-ray to ensure stability. MMODL / IJN: [id number] /
[2019-05-10] MEDS: IPRATROPIUM-ALBUTEROL 3 ML NEB INHALATION SCH ×4 (08:13→19:20)
[2019-05-10] MEDS: NICOTINE 14MG/24HR PATCH TRANSDERM SCH (08:19)
[2019-05-10] MEDS: PANTOPRAZOLE 40 MG TABLET PO SCH (08:20)
[2019-05-10] MEDS: MULTIVITAMINS, THERA 1 EACH TAB PO SCH (08:20)
[2019-05-10] MEDS: HEPARIN SODIUM,PORCINE 5,000 UNIT/ML 1 ML VIAL SQ SCH ×2 (08:20→19:52)
[2019-05-10] MEDS: AZITHROMYCIN 500 MG TAB PO SCH (08:20)
--- NOTE | 2019-05-10 11:44 | P.PN ---
Subjective Progress Note Date: 05/10/19 Principal diagnosis: Shortness of breath, cough with phlegm production This is a 78-year-old white female patient of Dr. Albarran, although she has not seen him in the last 2 or 3 years, with history of 47 years of smoking, 1-1/2 packs per day, previous history of pneumonia, history of multiple sclerosis and patient used to be under the care of Dr. Vaughn not on any maintenance medi cations for it, patient takes no prescription medications. Patient came into the emergency department on 05/07/2019 for evaluation of worsening shortness of breath, patient complained of having a bad cold for last 2 weeks, with cough, sinus headaches, yellow phlegm production. Yesterday her breathing got particularly worse, and patient was having worsening cough, and soreness across the upper back in the rib cage, denied any hemoptysis, patient was febrile on admission, with a temp of 101.1 degrees Fahrenheit, she is 92% on room air, hemodynamically stable, chest x-ray was completed showing COPD with interstitial changes and nodular density in the right lower lobe, and the CTA chest was co mpleted showing no evidence of pulmonary embolism, however did show multiple densities within the right mid and lower lung field, and soft tissue density within the right midlung was suspicious for neoplastic process. Admission blood work showed leukocytosis with white blood cell count is 16.5, hemoglobin was 12.9, electrolytes and renal profile were unremarkable, ALT and alkaline phosphatase were mildly elevated at 72 and 179 respectively, 3 sets of troponins were negative, proBNP was within normal limits at 178, influenza screen was negative. Patient was started on Rocephin and Zithromax, neb bronchodilators, and were consulted in regards to right mid and lower lung pneumonia with consi deration to neoplastic process that could not totally be excluded. Reevaluated today on 05/09/2019, patient is feeling a bit better, breathing a bit easier, less cough, less wheezing, less shortness of breath, and no further episodes of fever. Her temp is 98.1 today, blood pressure is stable, O2 s aturations 95% on room air. Patient is presently on antibiotics and bronchodilators, and she was made aware again by me today about the findings on her CT of the chest, and she was definitely need a close follow-up on outpatient basis, as there may be some suspicion for possible underlying malignancy involving the right lower lobe. I would recommend repeat CT of the chest and a month, and may even consider a PET scan on this patient. She does have nodular infiltrates, and malignancy is not entirely ruled out. On 05/10/2019 patient seen in follow-up on medical surgical floor, she states she is breathing easier, less wheezy and congested. Occasional cough, no chest pain, no hemoptysis, no fever since admission. Vital signs are stable, room air pulse ox is 93%. Yesterday's chest x-ray still showed right lower lobe pulmonary nodule, and coarsened interstitium. No significant change from previous chest x-ray. Clinically patient is improving, she remains on a combination of Zithromax and Rocephin, nebulized bronchodilators. Objective - Vital Signs Vital signs: Vital Signs Temp 97.8 F 05/10/19 04:48 Pulse 102 H 05/10/19 11:32 Resp 16 05/10/19 08:30 BP 143/76 05/10/19 04:48 Pulse Ox 93 L 05/10/19 04:48 Intake & Output 05/09/19 05/10/19 05/10/19 18:59 06:59 18:59 Intake Total 240 120 Output Total 6 Balance 234 120 Intake: Oral 240 120 Output: Urine 6 Other: Voiding Method Toilet Toilet Toilet # Voids 3 2 - Exam GENERAL EXAM: Alert, very pleasant, thin 78-year-old white female on room air, with a pulse ox of 92% comfortable in no apparent distress. HEAD: Normocephalic/atraumatic. EYES: Normal reaction of pupils, equal size. Conjunctiva pink, sclera white. NOSE: Clear with pink turbinates. THROAT: No erythema or exudates. NECK: No masses, no JVD, no thyroid enlargement, no adenopathy. CHEST: No chest wall deformity. Symmetrical expansion. LUNGS: Equal air entry with diffuse crackles at the bases, diminished breath sounds bilaterally, no wheeze, rhonchi or dullness. CVS: Regular rate and rhythm, normal S1 and S2, no gallops, no murmurs, no rubs ABDOMEN: Soft, nontender. No hepatosplenomegaly, normal bowel sounds, no guarding or rigidity. EXTREMITIES: No clubbing, no edema, no cyanosis, 2+ pulses and upper and lower extremities. MUSCULOSKELETAL: Muscle strength and tone normal. SPINE: No scoliosis or deformity SKIN: No rashes CENTRAL NERVOUS SYSTEM: Alert and oriented -3. No focal deficits, tone is normal in all 4 extremities. PSYCHIATRIC: Alert and oriented -3. Appropriate affect. Intact judgment and insight. - Labs CBC & Chem 7: 05/08/19 08:00 05/08/19 08:00 Labs: Microbiology - Last 24 Hours (Table) 05/08/19 07:50 Gram Stain - Final Sputum Sputum Culture - Final 05/07/19 11:03 Blood Culture - Preliminary Blood No Growth after 48 hours Assessment and Plan Plan: Assessment: #1. Acute dyspnea related to right middle and right lower lobe pneumonia, community acquired. CTA chest was negative for evidence of pulmonary embolism, but did show multiple densities in the right mid and lower lung ag. Soft tissue density within the right midlung is suspicious for neoplastic process and will be followed up #2. Extensive history of smoking, 47 years of one half packs per day #3. Previous history of pneumonia #4. Recent history of upper respiratory infection #5. Patient gives history of multiple sclerosis, used to follow with neurology, not on maintenance treatment Plan: Continue current antibiotics, continue nebulized bronchodilators, increase activity as tolerated, clinically patient is feeling better, no fever or chills, less dyspneic, less bronchospastic. From pulmonary perspective patient can be considered for discharge home in the next 24 hours, she will need close follow- up in the outpatient basis with Dr. Hsieh and she will likely need follow-up CT/PET scan for a concern of underlying malignancy in the right lung, possibility of a navigational bronchoscopy with biopsies I performed a history & physical examination of the patient and discussed their management with my nurse practitioner, Christi Crespo. I reviewed the nurse practitioner's note and agree with the documented findings and plan of care. Lung sounds are positive for bibasilar rales. The findings and the impression was discussed with the patient. I attest to the documentation by the nurse practitioner. Time with Patient: Less than 30
--- NOTE | 2019-05-10 16:49 | PN ---
PROGRESS NOTE DATE OF SERVICE: 05/10/2019 This 78-year-old woman who was admitted with bilateral interstitial pneumonia, possibly community-acquired, is being closely monitored. Patient on broad spectrum IV antibiotics. Dr. Boucher is following the patient closely. The most recent chest x-ray which I reviewed personally showed bilateral lesions. Clinically patient is slightly better. No chest pain. No palpitation. EXAM: Alert and oriented x3. Pulse 109, blood pressure 125/67, respiration 18, temperature 97.7, pulse ox 93% on 2 L. HEENT: Conjunctivae normal. NECK: No JVD. CARDIOVASCULAR: S1, S2 muffled. RESPIRATIONS: Breath sounds diminished in the bases. Bilateral scattered rhonchi and crackles. Expiratory wheezing also heard. ABDOMEN: Soft, nontender. NERVOUS SYSTEM: No focal deficits. LABS: WBC 9.3, hemoglobin 11.2. Sodium 138, potassium 4.5. ASSESSMENT: 1. Acute bilateral interstitial pneumonia possibly community-acquired, possibly interstitial bronchopneumonia with severe acute respiratory syndrome present on admission, right more the left. 2. Increased WBC. 3. Rule out metastatic disease. 4. Possible chronic obstructive pulmonary disease. 5. Increased D-dimer with no evidence of pulmonary embolus. 6. History of appendectomy. 7. Increased ALT with alkaline phosphatase. 8. History of tubal ligation. 9. History of continued ongoing nicotine dependence. 10.Severe protein calorie malnutrition with body mass index of 18.6. RECOMMENDATIONS AND DISCUSSION: Recommend to continue current medications, symptomatic treatment. Otherwise, CT scan finding as above. Chest x-ray noted. Dr. Boucher is following the patient closely. The patient will need outpatient followup also, possible discharge within the next 24-[address] PET scan was recommended as an outpatient by Dr. Boucher to rule out an underlying malignancy. The prognosis guarded because of multiple complex medical issues. Further recommendations to follow. MMODL / IJN: [id number] /
[2019-05-11] MEDS: MULTIVITAMINS, THERA 1 EACH TAB PO SCH (07:43)
[2019-05-11] MEDS: HEPARIN SODIUM,PORCINE 5,000 UNIT/ML 1 ML VIAL SQ SCH ×2 (07:43→20:56)
[2019-05-11] MEDS: PANTOPRAZOLE 40 MG TABLET PO SCH (07:43)
[2019-05-11] MEDS: AZITHROMYCIN 500 MG TAB PO SCH (07:43)
[2019-05-11] MEDS: NICOTINE 14MG/24HR PATCH TRANSDERM SCH (07:43)
[2019-05-11] MEDS: IPRATROPIUM-ALBUTEROL 3 ML NEB INHALATION SCH ×4 (07:52→21:24)
--- NOTE | 2019-05-11 10:44 | P.PN ---
Subjective This is a pleasant 78 years old female with past medical history of multiple sclerosis, previous pneumonia, current cigarette smoker about one 0.5 packs per day. Patient is not on prescription medication. Presents because of dyspnea. Found to have right middle lobe pneumonia, she's been evaluated by ear pull machine operator and she was placed on Zithromax and ceftriaxone. She had elevated d-dimer on admission at 1.1, CTA of the lung showing no pulmonary embolism, however there is an irregular density within the posterior midline measuring 1.2 cm with neoplasm cannot be excluded, emphysematous changes, there is another density including one in the right lower lobe about 2.5 x 1.5 cm and liver density about 1 cm suspicious for hepatic cyst as per radiologist. However patient today she still dyspneic at rest and exertion although she says she feels better. She's Been coughing each time she got respiratory therapy. However she denies chest p ain or diarrhea. Objective - Vital Signs Vital signs: Vital Signs Temp 97.5 F L 05/11/19 05:00 Pulse 96 05/11/19 08:06 Resp 16 05/11/19 05:00 BP 108/65 05/11/19 05:00 Pulse Ox 92 L 05/11/19 05:00 Intake & Output 05/10/19 05/11/19 05/11/19 18:59 06:59 18:59 Intake Total 360 240 Output Total 3 Balance 357 240 Intake: Oral 360 240 Output: Urine 3 Other: Voiding Method Toilet Toilet # Voids 4 2 - Exam GENERAL: The patient is alert and oriented x3, not in any acute distress. Well developed, well nourished. HEENT: Pupils are round and equally reacting to light. EOMI. No scleral icterus. No conjunctival pallor. Normocephalic, atraumatic. No pharyngeal erythema. No thyromegaly. CARDIOVASCULAR: S1 and S2 present. No murmurs, rubs, or gallops. -PULMONARY: Chest is clear to auscultation, scattered wheezing ABDOMEN: Soft, nontender, nondistended, normoactive bowel sounds. No palpable organomegaly. MUSCULOSKELETAL: No joint swelling or deformity. EXTREMITIES: No cyanosis, clubbing, or pedal edema. NEUROLOGICAL: Gross neurological examination did not reveal any focal deficits. SKIN: No rashes. no petechiae. - Labs CBC & Chem 7: 05/08/19 08:00 05/08/19 08:00 Labs: Microbiology - Last 24 Hours (Table) 05/07/19 11:03 Blood Culture - Preliminary Blood No Growth after 72 hours 05/08/19 07:50 Gram Stain - Final Sputum Sputum Culture - Final Assessment and Plan Assessment: Right middle lobe pneumonia Multiple density within the right mid and lower lung ag suspicious for meta static disease Right mid lung density suspicious for neoplasm Emphysema Nicotine dependence History of multiple sclerosis, not on medication Previous history of pneumonia Plan: This is a pleasant 78 years old female who presents with right pneumonia suspicious for neoplastic process associated with multiple density in the right lower and mid lung suspicious for metastatic disease, patient evaluated by ear pull machine operator who recommended CT/PET scan of the chest to rule out metastatic disease. Continue with antibiotics and bronchodilators. Labs and medication were reviewed.. Continue same treatment. Continue with symptomatic treatment. Resume home medication. Monitor lytes and vitals. DVT and GI prophylaxis. Further recommendations of the clinical course of the patient DVT prophylaxis: Subcutaneous heparin GI Prophylaxis: Pepcid PT/OT: Pending Prognosis is guarded
[2019-05-11 12:27] LABS: African American GFR (CKD) >90 (>60 ml/min/1.73 sqM); Anion Gap 10 mmol/L; Blood Urea Nitrogen 17 mg/dL (7-17); Calcium 9.7 mg/dL (8.4-10.2); Carbon Dioxide 26 mmol/L (22-30); Chloride 103 mmol/L (98-107); Glucose 107 mg/dL (74-99); Non-African American GFR(CKD) 86 (>60 ml/min/1.73 sqM); Potassium 4.8 mmol/L (3.5-5.1); Sodium 139 mmol/L (137-145)
--- NOTE | 2019-05-11 15:40 | PN ---
PROGRESS NOTE PULMONARY CRITICAL CARE PROGRESS NOTE: DATE OF SERVICE: 05/11/2019 This is a 78-year-old female with a history of right lower lobe and right middle lobe pneumonia and COPD exacerbation. The patient's chest CT was negative for evidence of pulmonary embolism. The patient is feeling much better. From the pulmonary standpoint could possibly be discharged home, although apparently she will be discharged home according to the primary service. Anyway, she does have complaints of shortness of breath, chest tightness, wheezing and cough. Not producing any phlegm. The patient will be followed up in the office with my partner who may consider doing bronchoscopy on this patient. She does have a history of extensive tobacco use of 47 years, a prior history of pneumonia and a recent history of upper respiratory tract infection. In addition, she has a history of multiple sclerosis. PHYSICAL EXAMINATION: VITAL SIGNS: Current vital signs include temperature 98.2, heart rate 92, respiratory rate 18, blood pressure 115/68, mean 83, room air saturation 93%. Appears in no acute distress. HEENT examination is grossly unremarkable. Mucous membranes are moist. No oral lesions. NECK: Supple. Full range of motion. No adenopathy or thyromegaly. Neck veins are flat. CARDIOVASCULAR examination reveals regular rhythm and rate. Heart rate in the high 80s to low 90s. S1, S2 normal. LUNGS: Reveal a few scattered expiratory wheezes. Breath sounds are mostly clear though. Breath sounds are diminished throughout. No rhonchi or crackles. ABDOMEN: Soft. Bowel sounds are heard. EXTREMITIES are intact. No cyanosis, clubbing, or edema. SKIN: Without rash. NEUROLOGIC examination is brief but nonfocal. Microbiology thus far is negative. LABS: Reviewed. Sodium 139, potassium 4.8, chloride 103, CO2 is 26. BUN and creatinine were 17 and 0.65. Anion gap is 10. The rest of the labs look okay. No CBC from today. Chest x-ray from the 7th shows COPD and some chronic interstitial changes. In addition, there are multiple small nodules on the right side. MEDICATIONS: Medications are reviewed. ASSESSMENT: 1. Acute shortness of breath secondary to right middle lobe and right lower lobe pneumonia, community acquired. 2. No evidence of pulmonary embolism by CT angiogram. 3. Suspicious multiple densities in the right mid lung and lower lung ag, potentially suspicious for metastatic/neoplastic disease. 4. History of chronic obstructive pulmonary disease with chronic obstructive pulmonary disease exacerbation secondary to heavy tobacco use of 47 years. 5. Prior history of pneumonia. 6. Recent history of upper respiratory tract infection. 7. History of multiple sclerosis. PLAN: The patient is doing well. We will continue to follow. Possible discharge in next 24- 48 hours. The patient will follow up with Dr. Boucher for consideration of bronchoscopy and biopsy. No additional recommendations are made. We will continue to follow. MMODL / IJN: [id number] /
[2019-05-11 21:25] VITALS: RESP 16
[2019-05-12] MEDS: IPRATROPIUM-ALBUTEROL 3 ML NEB INHALATION SCH ×2 (06:59→10:47)
[2019-05-12] MEDS: NICOTINE 14MG/24HR PATCH TRANSDERM SCH (07:17)
[2019-05-12] MEDS: AZITHROMYCIN 500 MG TAB PO SCH (07:18)
[2019-05-12] MEDS: HEPARIN SODIUM,PORCINE 5,000 UNIT/ML 1 ML VIAL SQ SCH (07:18)
[2019-05-12] MEDS: MULTIVITAMINS, THERA 1 EACH TAB PO SCH (07:18)
[2019-05-12] MEDS: PANTOPRAZOLE 40 MG TABLET PO SCH (07:18)
[2019-05-12 12:07] VITALS: BP 110/69; PULSE 109; TEMP 98
--- NOTE | 2019-05-12 13:16 | P.PN ---
Subjective Progress Note Date: 05/12/19 Principal diagnosis: Shortness of breath, cough with phlegm production This is a 78-year-old white female patient of Dr. Albarran, although she has not seen him in the last 2 or 3 years, with history of 47 years of smoking, 1-1/2 packs per day, previous history of pneumonia, history of multiple sclerosis and patient used to be under the care of Dr. Vaughn not on any maintenance medi cations for it, patient takes no prescription medications. Patient came into the emergency department on 05/07/2019 for evaluation of worsening shortness of breath, patient complained of having a bad cold for last 2 weeks, with cough, sinus headaches, yellow phlegm production. Yesterday her breathing got particularly worse, and patient was having worsening cough, and soreness across the upper back in the rib cage, denied any hemoptysis, patient was febrile on admission, with a temp of 101.1 degrees Fahrenheit, she is 92% on room air, hemodynamically stable, chest x-ray was completed showing COPD with interstitial changes and nodular density in the right lower lobe, and the CTA chest was co mpleted showing no evidence of pulmonary embolism, however did show multiple densities within the right mid and lower lung field, and soft tissue density within the right midlung was suspicious for neoplastic process. Admission blood work showed leukocytosis with white blood cell count is 16.5, hemoglobin was 12.9, electrolytes and renal profile were unremarkable, ALT and alkaline phosphatase were mildly elevated at 72 and 179 respectively, 3 sets of troponins were negative, proBNP was within normal limits at 178, influenza screen was negative. Patient was started on Rocephin and Zithromax, neb bronchodilators, and were consulted in regards to right mid and lower lung pneumonia with consi deration to neoplastic process that could not totally be excluded. Reevaluated today on 05/09/2019, patient is feeling a bit better, breathing a bit easier, less cough, less wheezing, less shortness of breath, and no further episodes of fever. Her temp is 98.1 today, blood pressure is stable, O2 s aturations 95% on room air. Patient is presently on antibiotics and bronchodilators, and she was made aware again by me today about the findings on her CT of the chest, and she was definitely need a close follow-up on outpatient basis, as there may be some suspicion for possible underlying malignancy involving the right lower lobe. I would recommend repeat CT of the chest and a month, and may even consider a PET scan on this patient. She does have nodular infiltrates, and malignancy is not entirely ruled out. On 05/10/2019 patient seen in follow-up on medical surgical floor, she states she is breathing easier, less wheezy and congested. Occasional cough, no chest pain, no hemoptysis, no fever since admission. Vital signs are stable, room air pulse ox is 93%. Yesterday's chest x-ray still showed right lower lobe pulmonary nodule, and coarsened interstitium. No significant change from previous chest x-ray. Clinically patient is improving, she remains on a combination of Zithromax and Rocephin, nebulized bronchodilators. On 05/12/2019 patient seen in follow-up on the surgical floor, improving, no acute events overnight, patient is less dyspneic, room air pulse ox is 95%, no fever or chills, lung sounds reveal a few scattered rhonchi, no wheezing, blood and sputum culture have shown no growth, patient has been treated with Rocephin and Zithromax, IV steroids and nebulized bronchodilators. No new labs today. Doing well, tolerating admission, patient is being considered for discharge home today. Objective - Vital Signs Vital signs: Vital Signs Temp 98 F 05/12/19 12:06 Pulse 109 H 05/12/19 12:06 Resp 16 05/12/19 12:06 BP 110/69 05/12/19 12:06 Pulse Ox 95 05/12/19 12:06 Intake & Output 05/11/19 05/12/19 05/12/19 18:59 06:59 18:59 Intake Total 240 240 Balance 240 240 Weight 47.627 kg Intake: Oral 240 240 Other: Voiding Method Toilet # Voids 3 2 - Exam GENERAL EXAM: Alert, very pleasant, thin 78-year-old white female on room air, with a pulse ox of 92% comfortable in no apparent distress. HEAD: Normocephalic/atraumatic. EYES: Normal reaction of pupils, equal size. Conjunctiva pink, sclera white. NOSE: Clear with pink turbinates. THROAT: No erythema or exudates. NECK: No masses, no JVD, no thyroid enlargement, no adenopathy. CHEST: No chest wall deformity. Symmetrical expansion. LUNGS: Equal air entry with diffuse crackles at the bases, diminished breath sounds bilaterally, no wheeze, rhonchi or dullness. CVS: Regular rate and rhythm, normal S1 and S2, no gallops, no murmurs, no rubs ABDOMEN: Soft, nontender. No hepatosplenomegaly, normal bowel sounds, no guarding or rigidity. EXTREMITIES: No clubbing, no edema, no cyanosis, 2+ pulses and upper and lower extremities. MUSCULOSKELETAL: Muscle strength and tone normal. SPINE: No scoliosis or deformity SKIN: No rashes CENTRAL NERVOUS SYSTEM: Alert and oriented -3. No focal deficits, tone is normal in all 4 extremities. PSYCHIATRIC: Alert and oriented -3. Appropriate affect. Intact judgment and insight. - Labs CBC & Chem 7: 05/08/19 08:00 05/11/19 11:34 Labs: Microbiology - Last 24 Hours (Table) 05/07/19 11:03 Blood Culture - Preliminary Blood No Growth after 96 hours Assessment and Plan Plan: Assessment: #1. Acute dyspnea related to right middle and right lower lobe pneumonia, community acquired. CTA chest was negative for evidence of pulmonary embolism, but did show multiple densities in the right mid and lower lung ag. Soft tissue density within the right midlung is suspicious for neoplastic process and will be followed up #2. Extensive history of smoking, 47 years of one half packs per day #3. Previous history of pneumonia #4. Recent history of upper respiratory infection #5. Patient gives history of multiple sclerosis, used to follow with neurology, not on maintenance treatment Plan: Patient is doing well, no acute issues overnight, alerting him ventilation, no fever or chills, cultures negative, from pulmonary perspective patient is stable for discharge home today with close follow-up with Dr. Hsieh in the office and possibility of a follow-up CT chest/PET scan in one month. I performed a history & physical examination of the patient and discussed their management with my nurse practitioner, Christi Crespo. I reviewed the nurse practitioner's note and agree with the documented findings and plan of care. Lung sounds are positive for bibasilar rales. The findings and the impression was discussed with the patient. I attest to the documentation by the nurse practitioner. Time with Patient: Less than 30
--- NOTE | 2019-05-12 13:27 | P.DS ---
Providers Date of admission: 05/07/19 14:41 Attending physician: Bob Yoon Consults: 05/07/19 16:13 Consult Physician Stat Consulting Provider: Merle Boucher Consult Reason/Comments: acute respiratory insufficiency, CAP, possible malignancy Do you want consulting provider notified?: Yes Primary care physician: Deion Turner [facility] Course: Diagnoses: Right middle lobe pneumonia Multiple densities within the right mid and lower lung ag suspicious for metastatic disease Right mid lung density suspicious for neoplasm Liver density about 1 cm suspicious for hepatic cyst Emphysema Nicotine dependence History of multiple sclerosis, not on medication Previous history of pneumonia Hospital course: This is a pleasant 78 years old female with past medical history of multiple sclerosis, previous pneumonia, current cigarette smoker about one 0.5 packs per day. Patient is not on prescription medication. Presents because of dyspnea. Found to have right middle lobe pneumonia, she's been evaluated by synchro assembler and she was placed on Zithromax and ceftriaxone. She had elevated d-dimer on admission at 1.1, CTA of the lung showing no pulmonary embolism, however there is an irregular density within the posterior midline measuring 1.2 cm with neoplasm cannot be excluded, emphysematous changes, there is another density including one in the right lower lobe about 2.5 x 1.5 cm and liver density about 1 cm suspicious for hepatic cyst as per radiologist. Patient has been treated with antibiotics Zithromax and ceftriaxone, bronchodilators, patient showed interval improvement and her breathing is back to baseline, or close to baseline. She is saturating 95% on room air, she does not need oxygen upon discharge. Patient denies chest pain. No chest in urine or bowel habits. No fever. I discussed the case with the patient and her son Mr. Wisdom. at bedside including the findings of the CT of the chest, including but not limited to the pneumonia, irregular mass and multiple densities that suspicious for primary or metastatic cancer, patient will need CT/PET scan to rule out cancerous disease as per recommendation, and appointment has been made for synchro assembler for her. Both the daughter and son and he verbalized understanding and acceptance to this plan patient will be discharged short course of Ceftin Patient was cleared for discharge by synchro assembler Problems and management plan were discussed with the patient and he verbalized understanding and acceptance Patient was found stable and can be discharged home however he needs follow-up as an outpatient. Patient was instructed to follow up with PCP within one week and patient agrees. Patient agrees with the appointments made for her with the synchro assembler and PCP and the timing and said she will follow up Gen: patient is a AAOx3, no distress CVS: S1-S2, RRR, no murmur Lungs: B/L CTA, no wheezing Abdomen: soft, no distention, no tenderness, positive bowel sounds Extremity: no leg edema or induration Time spent more than 35 minutes Patient Condition at Discharge: Stable Plan - Discharge Summary New Discharge Prescriptions: No Action Acetaminophen Tab [Tylenol Tab] 325 - 650 mg PO Q4H PRN PRN Reason: Pain Or Fever > 100.5 Multivitamins, Thera [Multivitamin (formulary)] 1 tab PO DAILY Discharge Medication List Acetaminophen Tab [Tylenol Tab] 325 - 650 mg PO Q4H PRN 05/07/19 [History] Multivitamins, Thera [Multivitamin (formulary)] 1 tab PO DAILY 05/07/19 [History] Follow up Appointment(s)/Referral(s): Merle Boucher MD [STAFF PHYSICIAN] - 06/04/19 1:00 pm Yue Albarran MD [Primary Care Provider] - 05/19/19 9:40 am Patient Instructions/Handouts: Pneumonia (DC)
== END 2019-05-12 14:20 | disposition home or self-care (01) ==
LOC: EC 10:03 → INTOOBSV 14:41 → 3NMEDONC 14:41 → UNDODISIN 05-12 14:20
PROVIDERS: ADMIT Hospitalist; ATTEND Hospitalist
DX: J18.9 Pneumonia, unspecified organism (principal); E43 Unspecified severe protein-calorie malnutrition; Z68.1 Body mass index [BMI] 19.9 or less, adult; G35 Multiple sclerosis; F17.210 Nicotine dependence, cigarettes, uncomplicated; J43.9 Emphysema, unspecified; J98.4 Other disorders of lung; K76.89 Other specified diseases of liver; Z90.49 Acquired absence of other specified parts of digestive tract; Z98.51 Tubal ligation status; Z87.01 Personal history of pneumonia (recurrent); Z79.899 Other long term (current) drug therapy; Z86.19 Personal history of other infectious and parasitic diseases
CPT/HCPCS: 96365; 96366 ×2; 96367; 96372 ×5; 96375; 99285; 36415; 94640 ×12; 93005; 97162; 97166; 85379; 86738; 83880; 80053; 80048 ×2; 87449; 84484 ×2; 85025 ×2; 87040; 87070; 87205; 87502; 71045; 71046; 71275; G0378 ×6; S4990 ×5; J1644 ×5; J0456 ×2; J0696 ×6; Q9967

== ENCOUNTER → 2019-12-10 | Outpatient (CLI) | payer MEDICARE ==
[2019-12-10 10:58] LABS: African American GFR (CKD) >90 (>60 ml/min/1.73 sqM); Blood Urea Nitrogen 20 mg/dL (7-17); Non-African American GFR(CKD) 87 (>60 ml/min/1.73 sqM)
--- NOTE | 2019-12-10 11:57 | CT ---
EXAMINATION TYPE: CT chest w con DATE OF EXAM: 12/10/2019 COMPARISON: CT chest dated 1219 HISTORY: follow up lung nodule CT DLP: 133.1 mGycm Automated exposure control for dose reduction was used. CONTRAST: CT scan of the chest is performed with IV Contrast, patient injected with 100 mL of Isovue 300. FINDINGS: LUNGS: Increasing spiculated nodule posterior right upper lobe image 24 measuring 1.55 cm versus 1.2 cm previously. Finding is felt to reflect malignancy until proven otherwise. PET/CT is advised. There is also a new pulmonary nodule measuring 7 mm superior segment right lower lobe image 34. 5 mm pulmo nary nodule right upper lobe image 32 moderate emphysematous changes noted. No evidence for infiltrat e. Improved bronchial wall thickening noted previously. MEDIASTINUM: There are no greater than 1 cm hilar or mediastinal lymph nodes. No pericardial effusi on is seen. Thoracic aorta is of normal caliber. The heart is not enlarged. UPPER ABDOMEN: Subcentimeter hypoattenuating hepatic lesions are noted which are too small to appropr iately characterize. Continued follow-up is advised. [id number] fixed hiatal hernia. OTHER: No additional significant abnormality is seen. IMPRESSION: Findings as discussed above for which I cannot exclude developing malignancy. PET CT is recommended f or further evaluation.
== END | disposition home or self-care (01) ==
LOC: RADCTMAIN 10:13
PROVIDERS: ATTEND Internal Medicine
DX: J43.9 Emphysema, unspecified (principal); R91.8 Other nonspecific abnormal finding of lung field
CPT/HCPCS: 82565; 84520; 71260; 36415; Q9967

== ENCOUNTER → 2019-12-19 | Outpatient (CLI) | payer MEDICARE ==
--- NOTE | 2019-12-20 13:07 | PE ---
EXAMINATION TYPE: PET CT fusion skull to thigh DATE OF EXAM: 12/19/2019 COMPARISON: Chest CT December 10, [address] May 07, 2019. HISTORY: Solitary pulmonary nodule, abnormal CT. TECHNIQUE: Following the intravenous administration of 13.9 mCi of F-18 FDG, whole body images are p erformed from the skull base to the midthigh. Images are reviewed on the computer in the coronal, ax ial, and sagittal planes. Reconstructed rotating images are created on independent workstation and r eviewed on the computer. A noncontrast CT is performed in conjunction with the PET scan. SCAN: Initial Scan FINDINGS: SKULL BASE AND NECK: No areas of abnormal hypermetabolic uptake. CHEST, MEDIASTINUM, AND HILAR REGION: Background moderate underlying emphysematous changes redemonstr ated. Persistent enlarging groundglass right upper lobe 1.4 cm nodule or nodular opacity axial image 84 is ametabolic. No areas of suspicious hypermetabolic uptake. ABDOMEN AND PELVIS: No areas of suspicious hypermetabolic uptake. OSSEOUS STRUCTURES: Focused of increased per metabolic uptake left iliac bone axial image 194 shows n o definitive CT correlate. Osseous structures are overall demineralized. OTHER CT: Mild calcified plaque bilateral carotid bulb level. Coronary artery calcification is presen t which is noted marker for underlying coronary artery disease. Sigmoid colonic diverticulosis. Mild calcified plaque of the abdominal aorta extending to iliac branch vessels. Slight S-shaped scoli otic curvature. Facet arthropathy lower lumbar levels. IMPRESSION: No suspicious hypermetabolic uptake. Enlarging groundglass opacity or nodule is suspiciou s for low-grade malignancy however such as bronchoalveolar carcinoma which cannot be excluded. Cardio thoracic surgical referral advised. Hypermetabolic area left pelvis without CT correlate, consider pelvic MRI follow-up to further evalua te.
== END | disposition home or self-care (01) ==
LOC: RADPETMAIN 14:37
PROVIDERS: ATTEND Internal Medicine
DX: R91.1 Solitary pulmonary nodule (principal)
CPT/HCPCS: 78815; A9552

== ENCOUNTER 2020-12-17 21:51 | Emergency (ER) | payer MEDICARE ==
[2020-12-17 22:08] VITALS: RESP 18; TEMP 98.2
--- NOTE | 2020-12-17 22:33 | ED ---
Fall HPI - General Chief Complaint: Extremity Injury, Lower Stated Complaint: fall Time Seen by Provider: 12/17/20 22:12 Source: patient, RN notes reviewed, old records reviewed Mode of arrival: wheelchair Limitations: no limitations - History of Present Illness Initial Comments: This is a 80-year-old female who presents to the ER after a fall. Patient is a fall with multiple complaints of pain. She weighs of bilateral rib pain bilateral chest pain hip pain right knee pain right elbow pain and did hit her head. No bleeding from swelling above her right eye. No loss of consciousness and she is not on blood thinners. 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 Witnessed: yes, by family Place Fall Occurred: home Loss of Consciousness: none Prolonged Down Time?: no Symptoms Prior to Fall: none Location: head, face, chest, back Location - Extremities: Right: Elbow, Knee Severity: moderate Severity scale (1-10): 4 Quality: aching Context: tripped/slipped Associated Symptoms: denies - Related Data Home Medications Medication Instructions Recorded Confirmed Acetaminophen Tab [Tylenol] 325 - 650 mg PO Q4H PRN 05/07/19 05/07/19 Multivitamins, Thera [Multivitamin 1 tab PO DAILY 05/07/19 05/07/19 (formulary)] Previous Rx's Medication Instructions Recorded Albuterol Inhaler (Mhu) [Ventolin 1 - 2 puff INHALATION RT-Q6H PRN 05/12/19 Hfa Inhaler (Mhu)] #1 inhaler Cefuroxime Axetil [Ceftin] 500 mg PO BID 7 Days #14 tab 05/12/19 Nicotine 14Mg/24Hr Patch [Habitrol] 1 patch TRANSDERM DAILY #30 patch 05/12/19 Pantoprazole [Protonix] 40 mg PO CATHY-BRKFSJayant #7 tablet. 05/12/19 Allergies Allergy/AdvReac Type Severity Reaction Status Date / Time No Known Allergies Allergy Verified 05/07/19 11:17 Review of Systems ROS Statement: Those systems with pertinent positive or pertinent negative responses have been documented in the HPI. ROS Other: All systems not noted in ROS Statement are negative. Past Medical History Past Medical History: No Reported History History of Any Multi-Drug Resistant Organisms: None Reported Past Surgical History: Appendectomy, Tubal Ligation Past Psychological History: No Psychological Hx Reported Smoking Status: Former smoker Past Alcohol Use History: None Reported Past Drug Use History: None Reported - Past Family History Mother Family Medical History: No Reported History General Exam Limitations: no limitations General appearance: alert, in no apparent distress Head exam: Present: atraumatic, normocephalic, normal inspection Eye exam: Present: normal appearance, PERRL, EOMI. Absent: scleral icterus, conjunctival injection, periorbital swelling ENT exam: Present: normal exam, mucous membranes moist Neck exam: Present: normal inspection. Absent: tenderness, meningismus, lymphadenopathy Respiratory exam: Present: normal lung sounds bilaterally. Absent: respiratory distress, wheezes, rales, rhonchi, stridor Cardiovascular Exam: Present: regular rate, normal rhythm, normal heart sounds. Absent: systolic murmur, diastolic murmur, rubs, gallop, clicks GI/Abdominal exam: Present: soft, normal bowel sounds. Absent: distended, tenderness, guarding, rebound, rigid Extremities exam: Present: normal inspection, full ROM, normal capillary refill. Absent: tenderness, pedal edema, joint swelling, calf tenderness Back exam: Present: normal inspection Neurological exam: Present: alert, oriented X3, CN II-XII intact Psychiatric exam: Present: normal affect, normal mood Skin exam: Present: warm, dry, intact, normal color. Absent: rash Course Vital Signs 12/17/20 12/18/20 22:03 00:04 Temperature 98.2 F Pulse Rate 81 98 Respiratory 18 18 Rate Blood Pressure 139/77 147/77 O2 Sat by Pulse 95 98 Oximetry - Reevaluation(s) Reevaluation #1: 12/18/20 02:31 Medical record is reviewed Reevaluation #2: 12/18/20 02:31 Patient is not requiring pain medication Reevaluation #3: 12/18/20 02:31 Patient informed of results questions answered Reevaluation #4: 12/18/20 02:31 Patient is able ambulate without difficulty Medical Decision Making - Medical Decision Making 80 female DF for evaluation patient feels well here in emergency department. Patient will be discharged to care of her son. No current complaints - Radiology Data Radiology results: report reviewed (CT brain C-spine chest x-ray pelvis x-ray right knee and right elbow x-ray are negative for traumatic injury), image reviewed Disposition Clinical Impression: Fall, Head injury Disposition: HOME SELF-CARE Condition: Good Instructions (If sedation given, give patient instructions): Fall Prevention for Older Adults (ED), Head Injury (ED), Contusion in Adults (ED) Is patient prescribed a controlled substance at d/c from ED?: No Referrals: Yue Albarran MD [Primary Care Provider] - 1-2 days
--- NOTE | 2020-12-17 22:48 | XR ---
EXAMINATION TYPE: XR knee complete RT DATE OF EXAM: 12/17/2020 COMPARISON: NONE HISTORY: Fall. Pain. TECHNIQUE: 3 views FINDINGS: I see no fracture nor dislocation. Joint spaces are fairly normal. There is minor spurring of the medial femoral and tibial condyles. There is no sign of joint effusion. IMPRESSION: Minimal hypertrophic degenerative changes. No fracture seen.
--- NOTE | 2020-12-17 23:12 | XR ---
EXAMINATION TYPE: XR elbow complete RT DATE OF EXAM: 12/17/2020 COMPARISON: NONE HISTORY: Fall. Pain. TECHNIQUE: 3 views FINDINGS: I see no fracture nor dislocation. Joint spaces are normal. There is no sign of joint effus ion. IMPRESSION: Negative right elbow exam.
--- NOTE | 2020-12-17 23:12 | XR ---
EXAMINATION TYPE: XR chest 1V DATE OF EXAM: 12/17/2020 COMPARISON: 12/09/2019 HISTORY: Fall. Pain. TECHNIQUE: FINDINGS: There is mild pulmonary hyperinflation. There is no heart failure. There is slight coars ening of the lung markings. IMPRESSION: Mild pulmonary fibrosis. No acute lung disease. No adverse change. COPD. Small hiatal hernia noted.
--- NOTE | 2020-12-17 23:13 | XR ---
EXAMINATION TYPE: XR pelvis AP view DATE OF EXAM: 12/17/2020 COMPARISON: NONE HISTORY: Fall. Pain. TECHNIQUE: Single view FINDINGS: Pelvic ring is intact. Proximal femurs and hip joints are intact. Sacroiliac joints are int act. IMPRESSION: Negative exam. No fracture.
--- NOTE | 2020-12-17 23:27 | CT ---
EXAMINATION TYPE: CT brain maya almanza DATE OF EXAM: 12/17/2020 COMPARISON: None HISTORY: pain CT DLP: 1218.4 mGycm Automated exposure control for dose reduction was used. Images of the brain and cervical spine obtained with no contrast. There is mild cerebral atrophy. There is moderate hypodensity in the periventricular white matter. Th ere is no mass effect nor midline shift. There is no sign of intracranial hemorrhage. Calvarium is in tact. There is soft tissue swelling lateral to the right orbit. The cervical vertebra have normal alignment. There is disc space narrowing at C5-6 and C6-7 with spur ring of the endplates. There is hypertrophic mild facet arthropathy. Prevertebral soft tissues are in tact. IMPRESSION: Spondylotic changes in the lower cervical spine. No fracture. Extensive white matter changes in the brain that could relate to chronic small vessel ischemia or dem yelinating disease. No acute abnormality. Lateral right periorbital small hematoma.
[2020-12-18 00:06] VITALS: BP 147/77; PULSE 98
== END 2020-12-18 00:05 | disposition home or self-care (01) ==
LOC: EC 21:51
DX: S09.90XA Unspecified injury of head, initial encounter (principal); Z87.891 Personal history of nicotine dependence; Z79.51 Long term (current) use of inhaled steroids; W01.0XXA Fall on same level from slipping, tripping and stumbling without subsequent striking against object, initial encounter; Y92.009 Unspecified place in unspecified non-institutional (private) residence as the place of occurrence of the external cause
CPT/HCPCS: 70450; 71045; 72125; 72170; 99284

== ENCOUNTER 2022-04-27 18:13 | Emergency (ER) | payer MEDICARE ==
[2022-04-27] MEDS ORDERED: MECLIZINE 12.5 MG TAB PO STA (18:27)
[2022-04-27] MEDS ORDERED: SODIUM CHLORIDE 0.9% 1,000 ML IV STA (18:27)
[2022-04-27] MEDS ORDERED: METOCLOPRAMIDE 5 MG/ML 2 ML VIAL IVP STA (18:27)
--- NOTE | 2022-04-27 18:31 | ED ---
General Adult HPI - General Stated complaint: vomiting Time Seen by Provider: 04/27/22 18:21 Source: patient, RN notes reviewed Mode of arrival: EMS Limitations: no limitations - History of Present Illness Initial comments: Patient is a pleasant 81-year-old female presenting to the emergency department with nausea vomiting. Onset of symptoms was a couple hours ago. Patient was dizzy at onset. Patient states she did feel like she was spinning somewhat. Patient states this only lasted for a short time however has been having nausea and vomiting since that time. Patient still has some nausea following Zofran by EMS however states that is improved. Patient denies any weakness or confusion. No speech problem is. No visual changes. No history of similar symptoms prev iously. - Related Data Home Medications Medication Instructions Recorded Confirmed Acetaminophen Tab [Tylenol] 325 - 650 mg PO Q4H PRN 05/07/19 05/07/19 Multivitamins, Thera [Multivitamin 1 tab PO DAILY 05/07/19 05/07/19 (formulary)] Previous Rx's Medication Instructions Recorded Albuterol Inhaler [Ventolin Hfa 1 - 2 puff INHALATION RT-Q6H PRN 05/12/19 Inhaler] #1 inhaler Nicotine 14Mg/24Hr Patch [Habitrol] 1 patch TRANSDERM DAILY #30 patch 05/12/19 Pantoprazole [Protonix] 40 mg PO AC-BRKFST #7 tablet. 05/12/19 cefUROXime axetiL [Ceftin] 500 mg PO BID 7 Days #14 tab 05/12/19 Allergies Allergy/AdvReac Type Severity Reaction Status Date / Time No Known Allergies Allergy Verified 05/07/19 11:17 Review of Systems ROS Statement: Those systems with pertinent positive or pertinent negative responses have been documented in the HPI. ROS Other: All systems not noted in ROS Statement are negative. Constitutional: Denies: fever Eyes: Denies: eye pain ENT: Denies: ear pain Respiratory: Denies: cough Cardiovascular: Denies: chest pain Endocrine: Denies: fatigue Gastrointestinal: Reports: nausea, vomiting. Denies: abdominal pain Genitourinary: Denies: dysuria Musculoskeletal: Denies: back pain Skin: Denies: rash Neurological: Reports: vertigo. Denies: headache, weakness, numbness, paresthesias, confusion Past Medical History Past Medical History: No Reported History History of Any Multi-Drug Resistant Organisms: None Reported Past Surgical History: Appendectomy, Tubal Ligation Past Psychological History: No Psychological Hx Reported Smoking Status: Former smoker Past Alcohol Use History: None Reported Past Drug Use History: None Reported - Past Family History Mother Family Medical History: No Reported History General Exam Limitations: no limitations General appearance: alert, in no apparent distress Head exam: Present: normocephalic Eye exam: Present: normal appearance, PERRL, EOMI ENT exam: Present: normal oropharynx Neck exam: Present: normal inspection Respiratory exam: Present: normal lung sounds bilaterally Cardiovascular Exam: Present: regular rate, normal rhythm GI/Abdominal exam: Present: soft. Absent: tenderness Extremities exam: Present: normal inspection Neurological exam: Present: alert, oriented X3, CN II-XII intact. Absent: motor sensory deficit Expanded Neurological exam: Present: protecting the airway Patient oriented to: Present: person, place, time Speech: Present: fluid speech Cranial nerves: EOM's Intact: Normal, Facial Sensation: Normal Sensory exam: Upper Extremity Light Touch: Normal, Lower Extremity Light Touch: Normal Motor strength exam: RUE: 5, LUE: 5, RLE: 5, LLE: 5 Eye Response: (4) open spontaneously Motor Response: (6) obeys commands Verbal Response: (5) oriented Psychiatric exam: Present: normal affect, normal mood Skin exam: Present: normal color Course Vital Signs 04/27/22 18:55 Temperature 97.3 F L Pulse Rate 80 Respiratory 18 Rate Blood Pressure 145/75 O2 Sat by Pulse 94 L Oximetry EKG Findings - EKG Results: EKG: interpreted by ERMD, sinus rhythm, normal axis, normal QRS, normal ST/T Medical Decision Making - Medical Decision Making Patient reevaluated and symptom-free. Patient states he feels much better. Patient updated on results and need for follow-up. - Lab Data Result diagrams: 04/27/22 18:55 04/27/22 18:55 Lab Results 04/27/22 04/27/22 04/27/22 Range/Units 18:55 18:55 18:55 WBC 16.5 H (3.8-10.6) k/uL RBC 4.32 (3.80-5.40) m/uL Hgb 12.2 (11.4-16.0) gm/dL Hct 37.3 (34.0-46.0) % MCV 86.3 (80.0-100.0) fL MCH 28.3 (25.0-35.0) pg MCHC 32.8 (31.0-37.0) g/dL RDW 15.3 (11.5-15.5) % Plt Count 110 L (150-450) k/uL MPV 14.5 Neutrophils % (Manual) 86 % Band Neuts % (Manual) 2 % Lymphocytes % (Manual) 7 % Monocytes % (Manual) 5 % Neutrophils # (Manual) 14.50 H (1.3-7.7) k/uL Lymphocytes # (Manual) 1.16 (1.0-4.8) k/uL Monocytes # (Manual) 0.83 (0-1.0) k/uL Nucleated RBCs 0 (0-0) /100 WBC Manual Slide Review Performed Hypochromasia Slight PT 11.2 (9.0-12.0) sec INR 1.0 (<1.2) APTT 22.9 (22.0-30.0) sec Sodium 138 (137-145) mmol/L Potassium 3.8 (3.5-5.1) mmol/L Chloride 106 (98-107) mmol/L Carbon Dioxide 24 (22-30) mmol/L Anion Gap 8 mmol/L BUN 19 H (7-17) mg/dL Creatinine 0.50 L (0.52-1.04) mg/dL Est GFR (CKD-EPI)AfAm >90 (>60 ml/min/1.73 sqM) Est GFR (CKD-EPI)NonAf >90 (>60 ml/min/1.73 sqM) Glucose 153 H (74-99) mg/dL Calcium 8.4 (8.4-10.2) mg/dL Total Bilirubin 0.2 (0.2-1.3) mg/dL AST 23 (14-36) U/L ALT 20 (4-34) U/L Alkaline Phosphatase 68 (38-126) U/L Total Protein 7.1 (6.3-8.2) g/dL Albumin 3.9 (3.5-5.0) g/dL - Radiology Data Radiology results: report reviewed (CT brain shows no acute abnormality. Atrophy.) Disposition Clinical Impression: Vomiting Disposition: HOME SELF-CARE Condition: Stable Instructions (If sedation given, give patient instructions): Acute Nausea and Vomiting (ED), Dizziness (ED) Additional Instructions: Please do follow-up with primary care physician beginning of the week. Return for dizziness, vomiting, confusion, weakness, worsening or changing symptoms or any other concerns. Is patient prescribed a controlled substance at d/c from ED?: No Referrals: Yue Albarran MD [Primary Care Provider] - 1-2 days Time of Disposition: 20:33
[2022-04-27 18:57] VITALS: RESP 18; TEMP 97.3
[2022-04-27 19:11] LABS: HCT 37.3 % (34.0-46.0); HGB 12.2 gm/dL (11.4-16.0); Hypochromasia Slight; MCH 28.3 pg (25.0-35.0); MCHC 32.8 g/dL (31.0-37.0); MCV 86.3 fL (80.0-100.0); Mean Platelet Volume 14.5; Platelet Count 110 k/uL (150-450); RBC 4.32 m/uL (3.80-5.40); RDW 15.3 % (11.5-15.5); WBC 16.5 k/uL (3.8-10.6)
[2022-04-27 19:22] LABS: ALT 20 U/L (4-34); AST 23 U/L (14-36); African American GFR (CKD) >90 (>60 ml/min/1.73 sqM); Albumin 3.9 g/dL (3.5-5.0); Alkaline Phosphatase 68 U/L (38-126); Anion Gap 8 mmol/L; Blood Urea Nitrogen 19 mg/dL (7-17); Calcium 8.4 mg/dL (8.4-10.2); Carbon Dioxide 24 mmol/L (22-30); Chloride 106 mmol/L (98-107); Glucose 153 mg/dL (74-99); Non-African American GFR(CKD) >90 (>60 ml/min/1.73 sqM); Potassium 3.8 mmol/L (3.5-5.1); Sodium 138 mmol/L (137-145); Total Bilirubin 0.2 mg/dL (0.2-1.3); Total Protein 7.1 g/dL (6.3-8.2)
[2022-04-27 19:32] LABS: Partial Thromboplastin Time 22.9 sec (22.0-30.0); Prothrombin Time 11.2 sec (9.0-12.0)
[2022-04-27 19:56] LABS: Band Neutrophils % 2 %; Lymphocytes # (M) 1.16 k/uL (1.0-4.8); Monocytes # (M) 0.83 k/uL (0-1.0); Neutrophils % (M) 86 %; Nucleated Red Blood Cells 0 /100 WBC (0-0); Total Cells Counted 100
--- NOTE | 2022-04-27 20:28 | CT ---
EXAMINATION TYPE: CT brain wo con DATE OF EXAM: 04/27/2022 COMPARISON: 12/17/2020 HISTORY: weakness CT DLP: 1127.4 mGycm Automated exposure control for dose reduction was used. Images of the brain obtained with no contrast. There is cerebral cortical atrophy. There is extensive hypodensity in the periventricular white matte r. There is no mass effect nor midline shift. No sign of intracranial hemorrhage. The calvarium is in tact. There is normal aeration of the mastoid sinuses. IMPRESSION: Cerebral atrophy and chronic small vessel ischemia. No acute intracranial abnormality. No significant change.
[2022-04-27] MEDS ORDERED: ONDANSETRON 4 MG ODT STARTER PACK 2 TAB BTL PO STA (21:01)
[2022-04-27 21:18] VITALS: BP 111/61; PULSE 88
== END 2022-04-27 21:18 | disposition home or self-care (01) ==
LOC: EC 18:13
DX: R11.2 Nausea with vomiting, unspecified (principal); Z87.891 Personal history of nicotine dependence
CPT/HCPCS: 36415; 93005; 80053; 85025; 85610; 85730; 70450; 99285; 96374; 96361; J2765; S0119

== ENCOUNTER 2022-12-05 13:38 | Emergency (ER) | payer MEDICARE ==
[2022-12-05 13:49] VITALS: RESP 16
--- NOTE | 2022-12-05 14:36 | ED ---
Back Pain HPI - General Source: patient, family, RN notes reviewed Mode of arrival: ambulatory Limitations: no limitations <Morgan Enciso - Last Filed: 12/05/22 14:35> - General Source: patient, family, RN notes reviewed Mode of arrival: ambulatory Limitations: no limitations - History of Present Illness MD Complaint: back pain <Maye Terry - Last Filed: 12/05/22 19:22> - General Chief Complaint: Back Pain/Injury Stated Complaint: back pain, Time Seen by Provider: 12/05/22 14:15 - History of Present Illness Initial Comments: 82-year-old female presents emergency department she went of low back pain. This is an ongoing issue states that she was seen Dr. Jordan states that she never any follow-through with her back pain. Patient states that the pain is worsening. She does but that she's been dealing with urinary incontinence but this is an ongoing from cystocele and which she had a pessary placed by Dr. Mcbride in [place]. Patient denies any bowel incontinence. Patient denies any saddle anesthesias. (Morgan Enciso) In addition to the history above, patient states that the back pain started becoming a problem in 2019. This is when she had the initial workup and imaging with Dr. Jordan, that she states was negative. The pain had started to improve, however a few months ago, she was bending over and felt something "shift" in her lower back. She's been dealing with pain since. She is taking ibuprofen with no relief in symptoms. States that she is also having pain in her hips. Denies any loss of bowel/bladder control or saddle anesthesia. (Maye Terry) - Related Data Home Medications Medication Instructions Recorded Confirmed Acetaminophen Tab [Tylenol] 325 - 650 mg PO Q4H PRN 05/07/19 05/07/19 Multivitamins, Thera [Multivitamin 1 tab PO DAILY 05/07/19 05/07/19 (formulary)] Previous Rx's Medication Instructions Recorded Albuterol Inhaler [Ventolin Hfa 1 - 2 puff INHALATION RT-Q6H PRN 05/12/19 Inhaler] #1 inhaler Nicotine 14Mg/24Hr Patch [Habitrol] 1 patch TRANSDERM DAILY #30 patch 05/12/19 Pantoprazole [Protonix] 40 mg PO AC-BRKFST #7 tablet. 05/12/19 cefUROXime axetiL [Ceftin] 500 mg PO BID 7 Days #14 tab 05/12/19 HYDROcodone/APAP 7.5-325MG [[place] 1 tab PO Q6HR PRN 3 Days #12 tab 12/05/22 7.5-325] Ketorolac [Toradol] 10 mg PO Q6HR PRN #12 tab 12/05/22 cefUROXime axetiL [Ceftin] 500 mg PO BID 7 Days #14 tab 12/05/22 Allergies Allergy/AdvReac Type Severity Reaction Status Date / Time No Known Allergies Allergy Verified 12/05/22 13:45 Review of Systems ROS Other: All systems not noted in ROS Statement are negative. <Morgan Enciso - Last Filed: 12/05/22 14:35> ROS Other: All systems not noted in ROS Statement are negative. <Maye Terry - Last Filed: 12/05/22 19:22> ROS Statement: Those systems with pertinent positive or pertinent negative responses have been documented in the HPI. Past Medical History Past Medical History: No Reported History History of Any Multi-Drug Resistant Organisms: None Reported Past Surgical History: Appendectomy, Tubal Ligation Past Psychological History: No Psychological Hx Reported Smoking Status: Former smoker Past Alcohol Use History: None Reported Past Drug Use History: None Reported - Past Family History Mother Family Medical History: No Reported History <Morgan Enciso - Last Filed: 12/05/22 14:35> General Exam Limitations: no limitations <Morgan Enciso - Last Filed: 12/05/22 14:35> Limitations: no limitations General appearance: alert, in no apparent distress Head exam: Present: atraumatic, normocephalic, normal inspection Respiratory exam: Present: normal lung sounds bilaterally. Absent: respiratory distress, wheezes, rales, rhonchi, stridor Cardiovascular Exam: Present: regular rate, normal rhythm, normal heart sounds. Absent: systolic murmur, diastolic murmur, rubs, gallop, clicks GI/Abdominal exam: Present: soft, normal bowel sounds. Absent: distended, tenderness, guarding, rebound, rigid Back exam: Present: normal inspection, tenderness (Lumbosacral spine) Neurological exam: Present: alert, oriented X3, CN II-XII intact Psychiatric exam: Present: normal affect, normal mood Skin exam: Present: warm, dry, intact, normal color. Absent: rash <Maye Terry - Last Filed: 12/05/22 19:22> - General Exam Comments Initial Comments: Visual Physical Exam Vital signs reviewed General: Well-appearing, nontoxic, no acute distress. Head: Normocephalic, atraumatic Eyes: PERRLA, EOMI ENT: Airway patent Chest: Nonlabored breathing Skin: No visual rash, normal skin tone Neuro: Alert and oriented 3 Musculoskeletal: No gross abnormalities (Morgan Enciso) Course Vital Signs 12/05/22 12/05/22 13:46 16:49 Temperature 98.9 F 98.7 F Pulse Rate 79 74 Respiratory 16 16 Rate Blood Pressure 169/96 150/74 O2 Sat by Pulse 94 L 97 Oximetry Medical Decision Making - Radiology Data Radiology results: report reviewed, image reviewed <Maye Terry - Last Filed: 12/05/22 19:22> - Medical Decision Making This is an 82-year-old female who presents to the emergency department for lower back pain. Was pt. sent in by a medical professional or institution? @ -No Did you speak to anyone other than the patient for history? @ -No Did you review nursing and triage notes? @ -No, I disagree with the part about the back pain becoming worse today. Patient states that it has been worse, but stable over the last few months. Were old charts reviewed? @ -No Differential Diagnosis? @ -Differential Back Pain: Strain, zoster, cauda equina syndrome, epidural abscess, vertebral osteomyelitis, discitis, fracture, subluxation, disc herniation, DJD, spinal stenosis, dissection, AAA, pancreatitis, peptic ulcer disease, pyelonephritis, kidney stone, this is not meant to be an all-inclusive list. EKG interpreted by me (3pts min.)? @ -Not obtained X-rays interpreted by me (1pt min.)? @ -XR of the lumbosacral spine and bilateral hips obtained. My interpretation identifies multiple compression fractures in the lumbar spine. CT interpreted by me (1pt min.)? @ -Not obtained U/S interpreted by me (1pt. min.)? @ -Not obtained What testing was considered but not performed? (CT, X-rays, U/S, labs)? Why? @ -None What meds were considered but not given? Why? @ -None Did you discuss the management of the patient with other professionals? @ -No Did you reconcile home meds? @ -No Was smoking cessation discussed for >3mins.? @ -No Was critical care preformed (if so, how long)? @ -No Were there social determinants of health that impacted care today? How? (Homelessness, low income, unemployed, alcoholism, drug addiction, transportation, low edu. Level, literacy, decrease access to med. care, shelter, rehab)? @ -No Was there de-escalation of care discussed even if they declined? (Discuss DNR or withdrawal of care, Hospice)? @ -No What co-morbidities impacted this encounter? (DM, HTN, Smoking, COPD, CAD, Cancer, CVA, Hep., AIDS, mental health diagnosis, sleep apnea, morbid obesity)? @ -Osteoarthritis Was patient admitted / discharged? @ -Discharged. Urinalysis consistent with a UTI. X-ray of the lumbosacral spine and bilateral hips obtained. Multiple compression fractures that are age indeterminate are noted in the lumbar spine. Findings reviewed with the patient. Prescriptions for Ceftin, Toradol, and [place] provided with dosing instructions reviewed. Patient is instructed to take the Toradol with Tylenol if needed and avoid any other [id number] anti-inflammatories such as ibuprofen with the Toradol. Also advised [id number] creams or lidocaine patches for additional pain management. Information for orthopedic spine follow-up provided. She is instructed to contact them for a follow-up appointment and further evaluation of multiple compression fractures. Undiagnosed new problem with uncertain prognosis? @ -None Drug Therapy requiring intensive monitoring for toxicity (Heparin, Nitro, Insulin, Cardizem)? @ -None Were any procedures done? @ -None Diagnosis/symptom? @ -UTI, lumbar spine compression fractures Acute, or Chronic, or Acute on Chronic? @ -Acute Uncomplicated (without systemic symptoms) or Complicated (systemic symptoms)? @ -Uncomplicated Side effects of treatment? @ -None Exacerbation, Progression, or Severe Exacerbation] @ -Not applicable Poses a threat to life or bodily function? @ -No Return precautions reviewed in depth, the patient is instructed to return to the emergency department with any new, worsening, or concerning symptoms. Patient verbalized understanding. This case was discussed in detail with the attending ED physician, Dr. Bearden. Presentation, findings, and treatment plan discussed in detail as well. (Maye Terry) - Lab Data Lab Results 12/05/22 Range/Units 15:01 Urine Color Yellow Urine Appearance Clear (Clear) Urine pH 5.5 (5.0-8.0) Ur Specific [place] 1.023 (1.001-1.035) Urine Protein Negative (Negative) Urine Glucose (UA) Negative (Negative) Urine Ketones Trace H (Negative) Urine Blood Negative (Negative) Urine Nitrite Positive H (Negative) Urine Bilirubin Negative (Negative) Urine Urobilinogen <2.0 (<2.0) mg/dL Ur Leukocyte Esterase Moderate H (Negative) Urine RBC 2 (0-5) /hpf Urine WBC 8 H (0-5) /hpf Ur Squamous Epith Cells <1 (0-4) /hpf Urine Bacteria Occasional H (None) /hpf Urine Mucus Rare H (None) /hpf Disposition <Morgan Enciso - Last Filed: 12/05/22 14:35> Is patient prescribed a controlled substance at d/c from ED?: Yes When asked, does pt state using other controlled substances?: No If prescribed controlled substance>3 days was MAPS reviewed?: Prescribed <3 Days <Maye Terry - Last Filed: 12/05/22 19:22> Clinical Impression: UTI (urinary tract infection), Compression fx, lumbar spine Disposition: HOME SELF-CARE Instructions (If sedation given, give patient instructions): Urinary Tract Infection in Women (ED), Vertebral Compression Fracture (ED) Additional Instructions: Return to the emergency department with any new, worsening, or concerning symptoms. Take the Toradol with Tylenol for pain relief. If you choose to take the Toradol, do not take it with ibuprofen or other anti-inflammatories, take one or the other. Take the [place] sparingly when your pain is the most severe and be aware that it may make you drowsy. Contact orthopedics as listed below for a follow-up appointment and further evaluation. Let them know that you were seen in the emergency department and found multiple compression fractures. Follow up with your primary care provider in 1-2 days. Prescriptions: cefUROXime axetiL [Ceftin] 500 mg PO BID 7 Days #14 tab HYDROcodone/APAP 7.5-325MG [[place] 7.5-325] 1 tab PO Q6HR PRN 3 Days #12 tab PRN Reason: Pain Ketorolac [Toradol] 10 mg PO Q6HR PRN #12 tab PRN Reason: Pain Referrals: None,Stated [REFERRING] - 1-2 days Pietro Puckett, [Doctor of Osteopathic Medicine] - 1-2 days
[2022-12-05] MEDS ORDERED: LIDOCAINE 5% PATCH TOPICAL ONE (15:10)
[2022-12-05] MEDS ORDERED: HYDROcodone/APAP 5-325MG 1 EACH TAB PO STA (15:10)
[2022-12-05] MEDS ORDERED: BACLOFEN 10 MG TAB PO ONE (15:10)
[2022-12-05 15:11] LABS: Appearance,Urine Clear (Clear); Bacteria,Urine Occasional /hpf; Bilirubin,Urine Negative (Negative); Blood,Urine Negative (Negative); Color,Urine Yellow; Glucose,Urine (UA) Negative (Negative); Ketones,Urine Trace (Negative); Leukocyte Esterase,Urine Moderate (Negative); Mucus,Urine Rare /hpf; Nitrite,Urine Positive (Negative); PH, Urine 5.5 (5.0-8.0); Protein,Urine Negative (Negative); RBC,Urine 2 /hpf (0-5); Specific Gravity,Urine 1.023 (1.001-1.035); Squamous Epithelial Cell,Urine <1 /hpf (0-4); Urobilinogen,Urine <2.0 mg/dL (<2.0); WBC,Urine 8 /hpf (0-5)
--- NOTE | 2022-12-05 15:45 | XR ---
EXAMINATION TYPE: XR Hip Bilateral Complete DATE OF EXAM: 12/05/2022 COMPARISON: NONE HISTORY: Pain TECHNIQUE: 2 views submitted FINDINGS: There is no evidence of erosive change or acute fracture. Diffuse osteopenia. There is mild bilateral concentric narrowing of the hip joint. There are calcifications along the greater trochanter of the right hip. IMPRESSION: 1. Diffuse osteopenia with mild bilateral hip arthropathy with no erosive changes. 2. Calcifications along the right greater trochanter can be associated with trochanteric bursitis. Co nsider follow-up MRI.
--- NOTE | 2022-12-05 15:46 | XR ---
EXAM TYPE: LUMBAR SPINE X RAY SERIES COMPARISON: NONE HISTORY: Pain TECHNIQUE: 4 views are submitted. FINDINGS: Alignment is anatomic. The pedicles are intact. The transverse processes are intact. There is diff use osteopenia. There are compression deformities involving the, L2, L5, L4, and L3 of indeterminate age. Diffuse osteopenia. IMPRESSION: 1. Diffuse osteopenia with multiple superior endplate compression fractures of indeterminate age exte nding from levels L2-L5. Correlate clinically and if necessary with CT scan.
[2022-12-05 16:51] VITALS: BP 150/74; PULSE 74; TEMP 98.7
== END 2022-12-05 16:51 | disposition home or self-care (01) ==
LOC: EC 13:38
DX: M48.56XA Collapsed vertebra, not elsewhere classified, lumbar region, initial encounter for fracture (principal); N39.0 Urinary tract infection, site not specified; Z87.891 Personal history of nicotine dependence
CPT/HCPCS: 72110; 73521; 81001; 99283

== ENCOUNTER → 2023-01-08 | Outpatient (CLI) | payer MEDICARE ==
--- NOTE | 2023-01-09 01:05 | MR ---
EXAMINATION TYPE: MR lumbar spine wo con DATE OF EXAM: 01/08/2023 4:29 PM COMPARISON: None. CLINICAL INDICATION: Female, 82 years old with history of M54.51 VERTEBROGENIC LOW BACK PAIN; PHH, Co mpression fracture, low back pain TECHNIQUE: Multi planar, multi sequence imaging was performed utilizing: T1-weighted, T2-weighted, a nd turbo inversion recovery imaging of the lumbar spine. IV Contrast: cc . None. FINDINGS: Alignment: The lumbar vertebral bodies have preserved alignment. Multilevel biconcave deformities abd omen as described below. Cord: The conus medullaris and the distal spinal cord appear unremarkable with regards to their signa l intensity and morphology. Bones/Discs: There is diffuse low signal throughout the osseous structures. There is abnormal bony ed sonu within the L2 vertebral body with biconcave deformity. There are some biconcave deformities of L3 -L4 and L5 are present. No significant bony edema and L3 L4 L5.r mild retropulsion at L2 of 4 mm, L3 of 2 mm, rL3 at L4 of 4 mm and L5 of 4 mm. T12-L1: No evidence of significant spinal canal stenosis or neural foraminal stenosis. L1-L2: Osteophytes from biconcave deformity, No evidence of significant spinal canal stenosis with mi ld bilateral neural foraminal stenosis. L2-L3:Osteophytes from biconcave deformity, No evidence of significant spinal canal stenosis with mil d bilateral neural foraminal stenosis. L3-L4: Osteophytes from biconcave deformity, No evidence of significant spinal canal stenosis with mi ld bilateral neural foraminal stenosis. L4-L5: Osteophytes from biconcave deformity, No evidence of significant spinal canal stenosis with mi ld bilateral neural foraminal stenosis. L5-S1: The disc is rounded posterior morphology without significant spinal canal stenosis. Facet join t arthropathy with mild neural foraminal stenosis. No significant spinal canal or neural foraminal stenosis in the remainder of the visualized levels. Other findings: None. IMPRESSION: 1. Biconcave deformities of L2-L5 with some bony edema involving the L2 vertebral body suggestive of a subacute compression fracture. Mild retropulsion with mild spinal canal stenosis. No definitive ev idence of disc herniation or significant spinal canal stenosis. 2. Multilevel disc degeneration with associated osteoarthritic changes with neural foramen are grossl y patent. 3. Diffuse red marrow conversion can be seen in the setting of tobacco abuse, anemia, or myeloprolife rative disorder.
== END | disposition home or self-care (01) ==
LOC: RADMRIMAIN 15:37
PROVIDERS: ATTEND Orthopaedic Surgery Orthopaedic Surgery of the Spine
DX: M51.36 Other intervertebral disc degeneration, lumbar region (principal); S32.020D Wedge compression fracture of second lumbar vertebra, subsequent encounter for fracture with routine healing; S32.030D Wedge compression fracture of third lumbar vertebra, subsequent encounter for fracture with routine healing; S32.040D Wedge compression fracture of fourth lumbar vertebra, subsequent encounter for fracture with routine healing; S32.050D Wedge compression fracture of fifth lumbar vertebra, subsequent encounter for fracture with routine healing; M48.061 Spinal stenosis, lumbar region without neurogenic claudication; M43.16 Spondylolisthesis, lumbar region; M62.830 Muscle spasm of back; R60.0 Localized edema; X58.XXXD Exposure to other specified factors, subsequent encounter
CPT/HCPCS: 72148

== ENCOUNTER 2023-01-30 15:10 | Emergency (ER) | payer MEDICARE, OTHER ==
[2023-01-30 15:23] VITALS: TEMP 98.4
--- NOTE | 2023-01-30 17:04 | ED ---
Back Pain HPI - General Chief Complaint: Back Pain/Injury Stated Complaint: BACK PAIN Time Seen by Provider: 01/30/23 16:11 Source: patient, family Limitations: no limitations - History of Present Illness Initial Comments: 82-year-old female presenting to the ED with a chief complaint of back and abdominal pain. Patient had MRI on that showed biconclave deformity of L2 to L5 with bony edema. L2 suggestive of subacute compression fracture. Mild retropulsion with mild canal stenosis. 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 States that she saw orthopedics at away and was instructed to wear a back brace. Patient states that she has been wearing this for the past month. States that since wearing this has felt a "bulge" in her lower back and has had worsening back pain. Also notes that since wearing this brace she has had lower abdominal pain that is intermittent in nature however over the past 4 days this abdominal pain has increased in its frequency. Patient denies saddle anesthesia. Notes that she has urinary incontinence and has a pessary. States that urinary incontinence has not been worse than usual area denies fecal incontinence. Patient notes associated urinary frequency. Denies dysuria or hematuria. Denies chest pain or shortness of breath. Denies weakness. No other complaints. - Related Data Home Medications Medication Instructions Recorded Confirmed Acetaminophen Tab [Tylenol] 325 - 650 mg PO Q4H PRN 05/07/19 05/07/19 Multivitamins, Thera [Multivitamin 1 tab PO DAILY 05/07/19 05/07/19 (formulary)] Previous Rx's Medication Instructions Recorded Albuterol Inhaler [Ventolin Hfa 1 - 2 puff INHALATION RT-Q6H PRN 05/12/19 Inhaler] #1 inhaler Nicotine 14Mg/24Hr Patch [Habitrol] 1 patch TRANSDERM DAILY #30 patch 05/12/19 Pantoprazole [Protonix] 40 mg PO CATHY-FLORENTINKFSJayant #7 tablet. 05/12/19 cefUROXime axetiL [Ceftin] 500 mg PO BID 7 Days #14 tab 05/12/19 HYDROcodone/APAP 7.5-325MG [[place] 1 tab PO Q6HR PRN 3 Days #12 tab 12/05/22 7.5-325] Ketorolac [Toradol] 10 mg PO Q6HR PRN #12 tab 12/05/22 cefUROXime axetiL [Ceftin] 500 mg PO BID 7 Days #14 tab 12/05/22 Allergies Allergy/AdvReac Type Severity Reaction Status Date / Time No Known Allergies Allergy Verified 01/30/23 15:22 Review of Systems ROS Statement: Those systems with pertinent positive or pertinent negative responses have been documented in the HPI. ROS Other: All systems not noted in ROS Statement are negative. Past Medical History Past Medical History: No Reported History Additional Past Medical History / Comment(s): back pain History of Any Multi-Drug Resistant Organisms: None Reported Past Surgical History: Appendectomy, Hysterectomy, Tubal Ligation Past Psychological History: No Psychological Hx Reported Smoking Status: Former smoker Past Alcohol Use History: None Reported Past Drug Use History: None Reported - Past Family History Mother Family Medical History: No Reported History General Exam Limitations: no limitations General appearance: alert, in no apparent distress Eye exam: Present: normal appearance Neck exam: Present: normal inspection Respiratory exam: Present: normal lung sounds bilaterally Cardiovascular Exam: Present: regular rate, normal rhythm GI/Abdominal exam: Present: soft (Tenderness to palpation in the suprapubic region.), normal bowel sounds Extremities exam: Present: normal inspection Back exam: Present: other (No midline cervical, thoracic, lumbar spinal tenderne ss to palpation. ) Neurological exam: Present: alert, oriented X3 Course Vital Signs 01/30/23 01/30/23 15:18 19:02 Temperature 98.4 F Pulse Rate 109 H 88 Respiratory 20 18 Rate Blood Pressure 149/80 134/78 O2 Sat by Pulse 95 99 Oximetry Medical Decision Making - Medical Decision Making Was pt. sent in by a medical professional or institution (, PA, APPLICATION TECHNICAL DESIGNER, urgent care, hospital, or long-term...) When possible be specific @ -No Did you speak to anyone other than the patient for history (EMS, parent, family, police, friend...)? What history was obtained from this source @ -No Did you review nursing and triage notes (agree or disagree)? Why? @ -I reviewed and agree with nursing and triage notes Were old charts reviewed (outside hosp., previous admission, EMS record, old EKG, old radiological studies, urgent care reports/EKG's, long-term records)? Report findings @ -No old charts were reviewed Differential Diagnosis (chest pain, altered mental status, abdominal pain women, abdominal pain men, vaginal bleeding, weakness, fever, dyspnea, syncope, headache, dizziness, GI bleed, back pain, seizure, CVA, palpatations, mental health, musculoskeletal)? @ -Differential Back Pain: Strain, zoster, cauda equina syndrome, epidural abscess, vertebral osteomyelit is, discitis, fracture, subluxation, disc herniation, DJD, spinal stenosis, dissection, AAA, pancreatitis, peptic ulcer disease, pyelonephritis, kidney stone, this is not meant to be an all-inclusive list. Differential Abdominal Pain Women: Appendicitis, Cholecystitis, diverticulosis, ischemic bowel, pancreatitis, hepatitis, UTI, gastroenteritis, AAA, incarcerated hernia, bowel obstruction, constipation, inflammatory bowel, hepatitis, peptic ulcer disease, splenic infarction, perforated viscus, vulvitis, ovarian torsion, PID, kidney stone, placenta abruption, this is not meant to be an all-inclusive list EKG interpreted by me (3pts min.). @ -As above X-rays interpreted by me (1pt min.). @ -None done CT interpreted by me (1pt min.). @ -CT of the abdomen and pelvis revealed evidence of enteritis however no other acute findings. CT lumbar spine largely unchanged from prior MRI without acute findings. U/S interpreted by me (1pt. min.). @ -None done What testing was considered but not performed or refused? (CT, X-rays, U/S, labs)? Why? @ -None What meds were considered but not given or refused? Why? @ -None Did you discuss the management of the patient with other professionals (professionals i.e. , PA, APPLICATION TECHNICAL DESIGNER, lab, RT, psych nurse, neonatal social worker, underwater photographer, teacher, duty officer, senior case manager)? Give summary @ -No Was smoking cessation discussed for >3mins.? @ -No Was critical care preformed (if so, how long)? @ -No Were there social determinants of health that impacted care today? How? (Homelessness, low income, unemployed, alcoholism, drug addiction, transportation, low edu. Level, literacy, decrease access to med. care, senior living, rehab)? @ -No Was there de-escalation of care discussed even if they declined (Discuss DNR or withdrawal of care, Hospice)? DNR status @ -No What co-morbidities impacted this encounter? (DM, HTN, Smoking, COPD, CAD, Cancer, CVA, ARF, Chemo, Hep., AIDS, mental health diagnosis, sleep apnea, morbid obesity)? @ -None Was patient admitted / discharged? Hospital course, mention meds given and route, prescriptions, significant lab abnormalities, going to OR and other pertinent info. @ -Discharge. Laboratory studies significant for a elevated white blood cell count at 16.3, and urine showing 31 white blood cells positive nitrites and large leukocyte esterase. Imaging studies show evidence of enteritis however no other acute findings on either CT abdomen and pelvis or CT lumbar spine with contrast. Patient has findings consistent with cystitis. Patient given dose of ceftriaxone here and provided prescription for Keflex. In regards to "bulge" no findings on CT lumbar spine concerning for worsening of known deformities. Likely soft tissue. Discharged home in stable condition. Discussed return precautions with patient and family who verbalizes agreement. Undiagnosed new problem with uncertain prognosis? @ -No Drug Therapy requiring intensive monitoring for toxicity (Heparin, Nitro, Insulin, Cardizem)? @ -No Were any procedures done? @ -No Diagnosis/symptom? @ -Cystitis, back pain Acute, or Chronic, or Acute on Chronic? @ -Acute, or acute on chronic Uncomplicated (without systemic symptoms) or Complicated (systemic symptoms)? @ -Uncomplicated Side effects of treatment? @ -No Exacerbation, Progression, or Severe Exacerbation? @ -No Poses a threat to life or bodily function? How? (Chest pain, [place], [place], pneumonia, PE, COPD, DKA, ARF, appy, cholecystitis, CVA, Diverticulitis, Homicidal, Suicidal, threat to staff... and all critical care pts) @ -No - Lab Data Result diagrams: 01/30/23 17:09 01/30/23 17:09 Lab Results 01/30/23 01/30/23 01/30/23 Range/Units 17:09 17: 17:09 WBC 16.3 H (3.8-10.6) k/uL RBC 4.76 (3.80-5.40) m/uL Hgb 13.4 (11.4-16.0) gm/dL Hct 40.8 (34.0-46.0) % MCV 85.6 (80.0-100.0) fL MCH 28.1 (25.0-35.0) pg MCHC 32.8 (31.0-37.0) g/dL RDW 15.9 H (11.5-15.5) % Plt Count 93 L (150-450) k/uL MPV 16.1 Neutrophils % 76 % Lymphocytes % 10 % Monocytes % 11 % Eosinophils % 1 % Basophils % 1 % Neutrophils # 12.3 H (1.3-7.7) k/uL Lymphocytes # 1.7 (1.0-4.8) k/uL Monocytes # 1.8 H (0-1.0) k/uL Eosinophils # 0.1 (0-0.7) k/uL Basophils # 0.1 (0-0.2) k/uL Manual Slide Review Performed Large Platelets Present RBC Morphology Normal Sodium 139 (137-145) mmol/L Potassium 4.4 (3.5-5.1) mmol/L Chloride 104 (98-107) mmol/L Carbon Dioxide 25 (22-30) mmol/L Anion Gap 10 mmol/L BUN 19 H (7-17) mg/dL Creatinine 0.47 L (0.52-1.04) mg/dL Est GFR (CKD-EPI)AfAm >90 (>60 ml/min/1.73 sqM) Est GFR (CKD-EPI)NonAf >90 (>60 ml/min/1.73 sqM) Glucose 96 (74-99) mg/dL Calcium 9.3 (8.4-10.2) mg/dL Total Bilirubin 0.7 (0.2-1.3) mg/dL AST 21 (14-36) U/L ALT 14 (4-34) U/L Alkaline Phosphatase 66 (38-126) U/L Total Protein 8.6 H (6.3-8.2) g/dL Albumin 4.3 (3.5-5.0) g/dL Amylase 42 (30-110) U/L Lipase 53 (23-300) U/L Urine Color Yellow Urine Appearance Cloudy H (Clear) Urine pH 5.5 (5.0-8.0) Ur Specific [place] 1.018 (1.001-1.035) Urine Protein Negative (Negative) Urine Glucose (UA) Negative (Negative) Urine Ketones 1+ H (Negative) Urine Blood Negative (Negative) Urine Nitrite Positive H (Negative) Urine Bilirubin Negative (Negative) Urine Urobilinogen <2.0 (<2.0) mg/dL Ur Leukocyte Esterase Large H (Negative) Urine RBC 2 (0-5) /hpf Urine WBC 31 H (0-5) /hpf Ur Squamous Epith Cells 2 (0-4) /hpf Urine Bacteria Few H (None) /hpf Urine Mucus Occasional H (None) /hpf Disposition Clinical Impression: Cystitis, Back pain Disposition: HOME SELF-CARE Condition: Good Instructions (If sedation given, give patient instructions): Acute Low Back Pain (ED), Urinary Tract Infection in Women (ED) Additional Instructions: Please return to the Emergency Department if symptoms worsen or any other concerns. Follow up with PCP/orthopedist. Is patient prescribed a controlled substance at d/c from ED?: No Referrals: Yue Albarran MD [Primary Care Provider] - 1-2 days Time of Disposition: 20:09
[2023-01-30] MEDS ORDERED: KETOROLAC 15 MG/ML 1 ML VIAL IVP STA (17:09)
[2023-01-30 17:22] LABS: Basophils # (A) 0.1 k/uL (0-0.2); Basophils % (A) 1 %; Eosinophils # (A) 0.1 k/uL (0-0.7); Eosinophils % (A) 1 %; HCT 40.8 % (34.0-46.0); HGB 13.4 gm/dL (11.4-16.0); Lymphocytes # (A) 1.7 k/uL (1.0-4.8); Lymphocytes % (A) 10 %; MCH 28.1 pg (25.0-35.0); MCHC 32.8 g/dL (31.0-37.0); MCV 85.6 fL (80.0-100.0); Mean Platelet Volume 16.1; Monocytes # (A) 1.8 k/uL (0-1.0); Monocytes % (A) 11 %; Neutrophils # (A) 12.3 k/uL (1.3-7.7); Neutrophils % (A) 76 %; RBC 4.76 m/uL (3.80-5.40); RDW 15.9 % (11.5-15.5); WBC 16.3 k/uL (3.8-10.6)
[2023-01-30 17:30] LABS: ALT 14 U/L (4-34); AST 21 U/L (14-36); African American GFR (CKD) >90 (>60 ml/min/1.73 sqM); Albumin 4.3 g/dL (3.5-5.0); Alkaline Phosphatase 66 U/L (38-126); Amylase 42 U/L (30-110); Anion Gap 10 mmol/L; Blood Urea Nitrogen 19 mg/dL (7-17); Calcium 9.3 mg/dL (8.4-10.2); Carbon Dioxide 25 mmol/L (22-30); Chloride 104 mmol/L (98-107); Glucose 96 mg/dL (74-99); Lipase 53 U/L (23-300); Non-African American GFR(CKD) >90 (>60 ml/min/1.73 sqM); Potassium 4.4 mmol/L (3.5-5.1); Sodium 139 mmol/L (137-145); Total Bilirubin 0.7 mg/dL (0.2-1.3); Total Protein 8.6 g/dL (6.3-8.2)
[2023-01-30 18:00] LABS: Large Platelets Present; Platelet Count 93 k/uL (150-450)
[2023-01-30 18:01] LABS: RBC Morphology Normal
[2023-01-30 18:40] LABS: Appearance,Urine Cloudy (Clear); Bacteria,Urine Few /hpf; Bilirubin,Urine Negative (Negative); Blood,Urine Negative (Negative); Color,Urine Yellow; Glucose,Urine (UA) Negative (Negative); Ketones,Urine 1+ (Negative); Leukocyte Esterase,Urine Large (Negative); Mucus,Urine Occasional /hpf; Nitrite,Urine Positive (Negative); PH, Urine 5.5 (5.0-8.0); Protein,Urine Negative (Negative); RBC,Urine 2 /hpf (0-5); Specific Gravity,Urine 1.018 (1.001-1.035); Squamous Epithelial Cell,Urine 2 /hpf (0-4); Urobilinogen,Urine <2.0 mg/dL (<2.0); WBC,Urine 31 /hpf (0-5)
--- NOTE | 2023-01-30 19:28 | CT ---
EXAMINATION TYPE: CT abdomen pelvis w con, CT lumbar spine w con DATE OF EXAM: 01/30/2023 COMPARISON: PET/CT 12/19/2019 and MRI 01/08/2023 HISTORY: 82 year-old female lower abdominal pain, suprapubic tenderness TECHNIQUE: Contiguous axial scanning of the abdomen and pelvis following administration of 100 ml Iso fatoumata 300 IV contrast. Delayed images through the kidneys and coronal/sagittal reconstructions perform ed. Additional CT scanning of the lumbar spine with coronal and sagittal reconstructions. CT DLP: 1150.4 mGycm Automated exposure control for dose reduction was used. FINDINGS: ABDOMEN AND PELVIS: Heart normal size without pericardial effusion. Tiny atelectasis posterior right base. There is a large hiatal hernia involving two thirds of the stomach in the lower chest. Scattered small hepatic cysts measuring up to 1.2 cm. Portal venous system is patent. No biliary duct al dilatation. Gallbladder, adrenal glands, right kidney, spleen, and pancreas within normal limits. 2.2 cm cortical cyst anterior left kidney. Mild to moderate atherosclerotic calcifications infrarenal abdominal aorta and common iliac arteries. No dilated small bowel, free fluid, or free air. Scattered prominent mesenteric lymph nodes measuring up to 1.4 cm. Large stool within the cecum and ascending colon. Cecum is distended up to 6.7 cm wide. Sigmoid diver ticulosis. No pericolonic inflammatory change. Some low hanging prominent fluid-filled small bowel loops in the pelvis. Bladder partially distended. Uterus is anteverted. Pessary device is in place. BONES AND LUMBAR SPINE: The severe compression deformities of T11, L2, L3, L4, L5 all remain unchanged from the 01/08/23 MRI. A ssociated mild retropulsion into the ventral spinal canal causing variable mild spinal canal narrowin g. Mild left-sided neural foraminal narrowing L2-L3 and L4-L5. No significant neural foraminal narrowing on the right. IMPRESSION: ABDOMEN AND PELVIS: 1. Low hanging prominent fluid-filled small bowel loops in the pelvis. In addition, there are scatter ed prominent mesenteric lymph nodes measuring up to 1.4 cm. Consider enteritis and mesenteric adeniti s. Follow-up CT in 3 months to ensure stability/resolution of the lymph nodes. 2. Large stool within the cecum and ascending colon distending it up to 6.7 cm wide. 3. Sigmoid diverticulosis without acute diverticulitis. 4. Large hiatal hernia involving two thirds of the stomach in the lower chest. LUMBAR SPINE: 5. Superior endplate compression deformities of T11, L2, L3, L4, and L5 all remain unchanged from the 01/08/2023 MRI. The L2 compression deformity was noted to be subacute at that time. No progressive hei ght loss is identified. 6. Mild retropulsion into the ventral spinal canal contributes to variable mild spinal canal narrowin g. No high-grade canal compromise.
[2023-01-30] MEDS ORDERED: cefTRIAXone IN SWFI 1,000 MG/10 ML SYRINGE IVP STA (20:03)
[2023-01-30 20:36] VITALS: BP 137/85; PULSE 90; RESP 16
== END 2023-01-30 20:52 | disposition home or self-care (01) ==
LOC: EC 15:10
DX: N30.90 Cystitis, unspecified without hematuria (principal); K52.9 Noninfective gastroenteritis and colitis, unspecified; M54.50 Low back pain, unspecified; B96.20 Unspecified Escherichia coli [E. coli] as the cause of diseases classified elsewhere; Z87.891 Personal history of nicotine dependence; Z90.49 Acquired absence of other specified parts of digestive tract
CPT/HCPCS: 36415; 80053; 82150; 83690; 85025; 81001; 87086; 87077; 87186; 72132; 74177; 99284; 96374; 96375; J0696; J1885; Q9967

== ENCOUNTER 2023-05-15 18:07 | Observation (INO) | payer MEDICARE ==
[2023-05-15] MEDS ORDERED: SODIUM CHLORIDE 0.9% 500 ML 500 ML IV STA (18:59)
[2023-05-15] MEDS ORDERED: KETOROLAC 15 MG/ML 1 ML VIAL IVP STA (18:59)
--- NOTE | 2023-05-15 19:08 | ED ---
General Adult HPI - General Source: patient, EMS, RN notes reviewed, old records reviewed Mode of arrival: EMS Limitations: no limitations <Hector Kohler - Last Filed: 05/15/23 21:14> <Bravo Sher - Last Filed: 05/16/23 00:59> - General Chief complaint: Abdominal Pain Stated complaint: ABD PAIN VOMITING Time Seen by Provider: 05/15/23 18:20 - History of Present Illness Initial comments: This is an 82-year-old female presents to the emergency department stating that for the last couple of months she's been having intermittent abdominal pain. Last couple days she's had abdominal pain the left side and this morning she was vomiting. Patient states she's also noted to be constipated. Patient states she also is chronic back pain is she supposed be following up with a pain specialist for that. Patient denies any dysuria or hematuria however she saw her [employer] 2 days ago and they told her she had a urinary tract infection. Patient's been taking antibiotics since. Patient denies any fever chills. Patient denies any chest pain difficulty breathing shortest breath (Hector Kohler) - Related Data Home Medications Medication Instructions Recorded Confirmed Calcium Carbonate [Tums] 500 - 1,000 mg PO ACHS PRN 05/15/23 05/15/23 Magnesium Hydroxide [Milk of 2,400 mg PO DAILY PRN 05/15/23 05/15/23 Magnesia] Naproxen [EC-Naprosyn] 500 mg PO BID PRN 05/15/23 05/15/23 Nitrofurantoin Monohyd/M-Cryst 100 mg PO Q12HR 05/15/23 05/15/23 [Macrobid] Allergies Allergy/AdvReac Type Severity Reaction Status Date / Time No Known Allergies Allergy Verified 05/15/23 19:54 Review of Systems ROS Other: All systems not noted in ROS Statement are negative. <Hector Kohler - Last Filed: 05/15/23 21:14> ROS Other: All systems not noted in ROS Statement are negative. <Bravo Sher - Last Filed: 05/16/23 00:59> ROS Statement: Those systems with pertinent positive or pertinent negative responses have been documented in the HPI. Past Medical History Past Medical History: No Reported History Additional Past Medical History / Comment(s): back pain History of Any Multi-Drug Resistant Organisms: None Reported Past Surgical History: Appendectomy, Hysterectomy, Tubal Ligation Past Psychological History: No Psychological Hx Reported Smoking Status: Former smoker Past Alcohol Use History: None Reported Past Drug Use History: None Reported - Past Family History Mother Family Medical History: No Reported History <Hector Kohler - Last Filed: 05/15/23 21:14> General Exam Limitations: no limitations <Hector Kohler - Last Filed: 05/15/23 21:14> - General Exam Comments Initial Comments: GENERAL: Patient is well-developed and well-nourished. Patient is nontoxic and well- hydrated and is in mild distress. ENT: Neck is soft and supple. No significant lymphadenopathy is noted. Oropharynx is clear. Moist mucous membranes. Neck has full range of motion without eliciting any pain. EYES: The sclera were anicteric and conjunctiva were pink and moist. Extraocular movements were intact and pupils were equal round and reactive to light. Eyelids were unremarkable. PULMONARY: Unlabored respirations. Good breath sounds bilaterally. No audible rales rhonchi or wheezing was noted. CARDIOVASCULAR: There is a regular rate and rhythm without any murmurs gallops or rubs. ABDOMEN: Patient has mild tenderness in the left lower quadrant SKIN: Skin is clear with no lesions or rashes and otherwise unremarkable. NEUROLOGIC: Patient is alert and oriented x3. Cranial nerves II through XII are grossly intact. Motor and sensory are also intact. Normal speech, volume and content. Symmetrical smile. MUSCULOSKELETAL: Normal extremities with adequate strength and full range of motion. No lower extremity swelling or edema. No calf tenderness. LYMPHATICS: No significant lymphadenopathy is noted PSYCHIATRIC: Normal psychiatric evaluation. (Hector Kohler) Course Vital Signs 05/15/23 05/15/23 18:17 20:00 Temperature 98.1 F Pulse Rate 112 H 114 H Respiratory 17 18 Rate Blood Pressure 137/80 142/78 O2 Sat by Pulse 92 L 93 L Oximetry Medical Decision Making - Lab Data Result diagrams: 05/15/23 19:02 05/15/23 19:02 <Hector Kohler - Last Filed: 05/15/23 21:14> - Lab Data Result diagrams: 05/15/23 19:02 05/15/23 19:02 <Bravo Sher Zachary - Last Filed: 05/16/23 00:59> - Medical Decision Making Was pt. sent in by a medical professional or institution (AIDA Orosco, NUCLEAR TEST TECHNICIAN, urgent care, hospital, or usp...) When possible be specific @ -[No] Did you speak to anyone other than the patient for history (EMS, parent, family, police, friend...)? What history was obtained from this source @ -[No] Did you review nursing and triage notes (agree or disagree)? Why? @ -[I reviewed and agree with nursing and triage notes] Were old charts reviewed (outside hosp., previous admission, EMS record, old EKG, old radiological studies, urgent care reports/EKG's, usp records)? Report findings @ -I reviewed old lab work and old charts on this patient Differential Diagnosis (chest pain, altered mental status, abdominal pain women, abdominal pain men, vaginal bleeding, weakness, fever, dyspnea, syncope, headache, dizziness, GI bleed, back pain, seizure, CVA, palpatations, mental health, musculoskeletal)? @ -Differential Abdominal Pain Women: Appendicitis, Cholecystitis, diverticulosis, ischemic bowel, pancreatitis, hepatitis, UTI, gastroenteritis, AAA, incarcerated hernia, bowel obstruction, constipation, inflammatory bowel, hepatitis, peptic ulcer disease, splenic infarction, perforated viscus, vulvitis, ovarian torsion, PID, kidney stone, placenta abruption, this is not meant to be an all-inclusive list EKG interpreted by me (3pts min.). @ -[As above] X-rays interpreted by me (1pt min.). @ -[None done] CT interpreted by me (1pt min.). @ -[None done] U/S interpreted by me (1pt. min.). @ -[None done] What testing was considered but not performed or refused? (CT, X-rays, U/S, labs)? Why? @ -[None] What meds were considered but not given or refused? Why? @ -[None] Did you discuss the management of the patient with other professionals (professionals i.e. AIDA Orosco, NUCLEAR TEST TECHNICIAN, lab, RT, psych nurse, vp digital marketing social media and crm, home child care provider, teacher, special forces warrant officer, rn case mgr)? Give summary @ -[No] Was smoking cessation discussed for >3mins.? @ -[No] Was critical care preformed (if so, how long)? @ -[No] Were there social determinants of health that impacted care today? How? (Homelessness, low income, unemployed, alcoholism, drug addiction, transportation, low edu. Level, literacy, decrease access to med. care, nursing home, rehab)? @ -[No] Was there de-escalation of care discussed even if they declined (Discuss DNR or withdrawal of care, Hospice)? DNR status @ -[No] What co-morbidities impacted this encounter? (DM, HTN, Smoking, COPD, CAD, Cancer, CVA, ARF, Chemo, Hep., AIDS, mental health diagnosis, sleep apnea, morbid obesity)? @ -[None] Was patient admitted / discharged? Hospital course, mention meds given and route, prescriptions, significant lab abnormalities, going to OR and other pertinent info. @ -Count was elevated I started the patient 2 g Rocephin. At this point time Dr. Sher will be taking over the care of this patient at (Hector Kohler) CT does not show a definitive cause of the patient's abdominal pain. She will be observed overnight, IV antibiotic 7 been initiated for leukocytosis and recent UTI. (Bravo Sher) - Lab Data Lab Results 05/15/23 05/15/23 05/15/23 Range/Units 19:02 19:02 19:02 WBC 24.3 H (3.8-10.6) k/uL RBC 4.78 (3.80-5.40) m/uL Hgb 13.3 (11.4-16.0) gm/dL Hct 40.4 (34.0-46.0) % MCV 84.6 (80.0-100.0) fL MCH 27.8 (25.0-35.0) pg MCHC 32.8 (31.0-37.0) g/dL RDW 16.4 H (11.5-15.5) % Plt Count 86 L (150-450) k/uL MPV 17.1 Neutrophils % (Manual) 88 % Lymphocytes % (Manual) 1 % Monocytes % (Manual) 11 % Neutrophils # (Manual) 21.38 H (1.3-7.7) k/uL Lymphocytes # (Manual) 0.24 L (1.0-4.8) k/uL Monocytes # (Manual) 2.67 H (0-1.0) k/uL Nucleated RBCs 0 (0-0) /100 WBC Manual Slide Review Performed Large Platelets Present Anisocytosis Slight Sodium 138 (137-145) mmol/L Potassium 4.3 (3.5-5.1) mmol/L Chloride 103 (98-107) mmol/L Carbon Dioxide 23 (22-30) mmol/L Anion Gap 12 mmol/L BUN 13 (7-17) mg/dL Creatinine 0.34 L (0.52-1.04) mg/dL Est GFR (CKD-EPI)AfAm >90 (>60 ml/min/1.73 sqM) Est GFR (CKD-EPI)NonAf >90 (>60 ml/min/1.73 sqM) Glucose 118 H (74-99) mg/dL Plasma Lactic Acid Baldemar (0.7-2.0) mmol/L Calcium 9.9 (8.4-10.2) mg/dL Total Bilirubin 0.9 (0.2-1.3) mg/dL AST 30 (14-36) U/L ALT 14 (4-34) U/L Alkaline Phosphatase 80 (38-126) U/L Total Protein 8.0 (6.3-8.2) g/dL Albumin 4.1 (3.5-5.0) g/dL Amylase 39 (30-110) U/L Lipase 48 (23-300) U/L Urine Color Light Yellow Urine Appearance Clear (Clear) Urine pH 6.0 (5.0-8.0) Ur Specific [place] 1.010 (1.001-1.035) Urine Protein Negative (Negative) Urine Glucose (UA) Negative (Negative) Urine Ketones 4+ H (Negative) Urine Blood Negative (Negative) Urine Nitrite Negative (Negative) Urine Bilirubin Negative (Negative) Urine Urobilinogen <2.0 (<2.0) mg/dL Ur Leukocyte Esterase Moderate H (Negative) Urine RBC 5 (0-5) /hpf Urine WBC 38 H (0-5) /hpf Ur Squamous Epith Cells 2 (0-4) /hpf Urine Bacteria Rare H (None) /hpf 05/15/ Range/Units 19:02 WBC (3.8-10.6) k/uL RBC (3.80-5.40) m/uL Hgb (11.4-16.0) gm/dL Hct (34.0-46.0) % MCV (80.0-100.0) fL MCH (25.0-35.0) pg MCHC (31.0-37.0) g/dL RDW (11.5-15.5) % Plt Count (150-450) k/uL MPV Neutrophils % (Manual) % Lymphocytes % (Manual) % Monocytes % (Manual) % Neutrophils # (Manual) (1.3-7.7) k/uL Lymphocytes # (Manual) (1.0-4.8) k/uL Monocytes # (Manual) (0-1.0) k/uL Nucleated RBCs (0-0) /100 WBC Manual Slide Review Large Platelets Anisocytosis Sodium (137-145) mmol/L Potassium (3.5-5.1) mmol/L Chloride (98-107) mmol/L Carbon Dioxide (22-30) mmol/L Anion Gap mmol/L BUN (7-17) mg/dL Creatinine (0.52-1.04) mg/dL Est GFR (CKD-EPI)AfAm (>60 ml/min/1.73 sqM) Est GFR (CKD-EPI)NonAf (>60 ml/min/1.73 sqM) Glucose (74-99) mg/dL Plasma Lactic Acid [place] 1.3 (0.7-2.0) mmol/L Calcium (8.4-10.2) mg/dL Total Bilirubin (0.2-1.3) mg/dL AST (14-36) U/L ALT (4-34) U/L Alkaline Phosphatase (38-126) U/L Total Protein (6.3-8.2) g/dL Albumin (3.5-5.0) g/dL Amylase (30-110) U/L Lipase (23-300) U/L Urine Color Urine Appearance (Clear) Urine pH (5.0-8.0) Ur Specific [place] (1.001-1.035) Urine Protein (Negative) Urine Glucose (UA) (Negative) Urine Ketones (Negative) Urine Blood (Negative) Urine Nitrite (Negative) Urine Bilirubin (Negative) Urine Urobilinogen (<2.0) mg/dL Ur Leukocyte Esterase (Negative) Urine RBC (0-5) /hpf Urine WBC (0-5) /hpf Ur Squamous Epith Cells (0-4) /hpf Urine Bacteria (None) /hpf Disposition <Hector Kohler - Last Filed: 05/15/23 21:14> Is patient prescribed a controlled substance at d/c from ED?: No Time of Disposition: 00:59 <Bravo Sher - Last Filed: 05/16/23 00:59> Clinical Impression: Abdominal pain, UTI (urinary tract infection) Disposition: ADMITTED IP TO THIS HOSP Condition: Stable Referrals: Yue Albarran MD [Primary Care Provider] - 1-2 days
[2023-05-15 19:29] LABS: Anisocytosis Slight; HCT 40.4 % (34.0-46.0); HGB 13.3 gm/dL (11.4-16.0); MCH 27.8 pg (25.0-35.0); MCHC 32.8 g/dL (31.0-37.0); MCV 84.6 fL (80.0-100.0); Mean Platelet Volume 17.1; RBC 4.78 m/uL (3.80-5.40); RDW 16.4 % (11.5-15.5); WBC 24.3 k/uL (3.8-10.6)
[2023-05-15 19:31] LABS: ALT 14 U/L (4-34); AST 30 U/L (14-36); African American GFR (CKD) >90 (>60 ml/min/1.73 sqM); Albumin 4.1 g/dL (3.5-5.0); Alkaline Phosphatase 80 U/L (38-126); Amylase 39 U/L (30-110); Anion Gap 12 mmol/L; Blood Urea Nitrogen 13 mg/dL (7-17); Calcium 9.9 mg/dL (8.4-10.2); Carbon Dioxide 23 mmol/L (22-30); Chloride 103 mmol/L (98-107); Glucose 118 mg/dL (74-99); Lipase 48 U/L (23-300); Non-African American GFR(CKD) >90 (>60 ml/min/1.73 sqM); Sodium 138 mmol/L (137-145); Total Bilirubin 0.9 mg/dL (0.2-1.3)
[2023-05-15 19:32] LABS: Platelet Count 86 k/uL (150-450)
[2023-05-15 19:34] LABS: Potassium 4.3 mmol/L (3.5-5.1)
[2023-05-15 20:14] LABS: Lymphocytes # (M) 0.24 k/uL (1.0-4.8); Monocytes # (M) 2.67 k/uL (0-1.0); Neutrophils # (M) 21.38 k/uL (1.3-7.7); Neutrophils % (M) 88 %; Nucleated Red Blood Cells 0 /100 WBC (0-0); Total Cells Counted 100
[2023-05-15 20:15] LABS: Large Platelets Present
[2023-05-15 20:39] LABS: Color,Urine Light Yellow
[2023-05-15 20:40] LABS: Appearance,Urine Clear (Clear); Bilirubin,Urine Negative (Negative); Blood,Urine Negative (Negative); Glucose,Urine (UA) Negative (Negative); Ketones,Urine 4+ (Negative); Leukocyte Esterase,Urine Moderate (Negative); Nitrite,Urine Negative (Negative); Protein,Urine Negative (Negative); Urobilinogen,Urine <2.0 mg/dL (<2.0)
[2023-05-15 20:41] LABS: Bacteria,Urine Rare /hpf; RBC,Urine 5 /hpf (0-5); Squamous Epithelial Cell,Urine 2 /hpf (0-4); WBC,Urine 38 /hpf (0-5)
[2023-05-15] MEDS ORDERED: cefTRIAXone IN SWFI 1,000 MG/10 ML SYRINGE IVP STA (21:01)
--- NOTE | 2023-05-15 21:37 | CT ---
EXAMINATION TYPE: CT abdomen pelvis w con CT DLP: 534 mGycm, Automated exposure control for dose reduction was used. DATE OF EXAM: 05/15/2023 8:05 PM COMPARISON: None. CLINICAL INDICATION:Female, 82 years old with history of abdominal pain; Pt c/o abdominal pain, n/v f rom UTI. Pt stated visit Dr on Saturday05/13/23, placed on antibiotics, but s/s not improving. Pt unab le to keep anything down; onset this morning. TECHNIQUE: Axial CT of the abdomen and pelvis with IV contrast. Sagittal and coronal reformats were created on a separate workstation. Contrast used:100 ml mL of Isovue 300 with IV Contrast, (none if empty) Oral contrast used: without Oral Contrast (none if empty) FINDINGS: LOWER CHEST: Heart is mildly enlarged with partially seen coronary artery calcifications. No pericard ial effusion. Moderate-sized hiatal hernia with some irregular thickening of the wall suggested aroun d the region of the GE junction. Lungs appear somewhat hyperinflated with mild edematous changes cons istent with COPD. Dependent opacities bilaterally, consistent with atelectasis. Mild eventration hitesh g the right hemidiaphragm. ABDOMEN LIVER: A few small scattered hypodense hepatic lesions are not fully characterized but likely cysts o r hemangiomas. Largest seen is in the medial segment left lobe measuring 1.1 cm. GALLBLADDER AND BILE DUCTS: There appears to be mild intrahepatic biliary dilatation in some segments . Gallbladder is nondistended without evidence for calcified gallstones. A dilated CBD is not shown. PANCREAS: No acute abnormality. Tiny round hypodensity in the posterior body, likely benign cystic le alvarez in a patient of this age. SPLEEN: Unremarkable. ADRENAL GLANDS: Unremarkable. KIDNEYS AND URETERS: Kidneys enhance symmetrically. There is no evidence of hydronephrosis. A 2.2 cm cyst towards the lower pole left kidney. PELVIS BLADDER: Mildly distended, grossly unremarkable. REPRODUCTIVE: Unremarkable uterus for age. Soft tissue densities in the pelvis likely reflecting norm al-sized ovaries. No evidence of pelvic mass. A pessary is in place. ABDOMEN & PELVIS STOMACH AND BOWEL: Stomach and small bowel are nondistended, no evidence of obstruction. What is rohan eved to be the appendix appears within normal limits. Moderate stool throughout colon without focal a bnormality seen. Scattered diverticula without clear evidence of diverticulitis. PERITONEUM/RETROPERITONEUM: No evidence of pneumoperitoneum or free fluid. VASCULATURE: Mild to moderate atherosclerotic calcifications are present throughout the abdominal aor ta and its branches. No evidence of aortic aneurysm. MUSCULOSKELETAL: Bones appear osteopenic with mild degenerative changes. Compression deformities with moderate loss of height L5, L4, L2, T12, and mild/moderate loss of height along the superior endplat es L3 and T11 without definite fracture lucency is seen, are likely to be chronic compression fractur es. Mild retropulsion along the posterior-superior aspect of L2. No clearly acute bony abnormality ot herwise. LYMPH NODES: No gross evidence for lymphadenopathy. SOFT TISSUE/ABDOMINAL WALL: Unremarkable IMPRESSION: 1. No acute CT abnormality demonstrated to explain the patient's symptoms. 2. Moderate sized hiatal hernia with soft tissue thickening suggested in the region of the GE juncti on. Consider endoscopy for further evaluation. 3. A few hypodense hepatic lesions, too small to characterize but statistically cysts or hemangiomas . Some areas of mild patchy biliary dilatation are suggested, of doubtful clinical significance. Neve rtheless, contrast MRI liver may be of benefit as an outpatient if clinically warranted.
--- NOTE | 2023-05-15 23:53 | XR ---
EXAMINATION TYPE: XR chest 2V DATE OF EXAM: 05/15/2023 9:57 PM CLINICAL INDICATION:Female, 82 years old with history of cough/fever; H COMPARISON: Chest x-ray 12/17/2020 TECHNIQUE: XR chest 2V. Frontal PA and lateral views of the chest. FINDINGS: Lines/Tubes: Extrinsic densities over the chest. No indwelling lines are seen. Heart/mediastinum: Cardiac silhouette appears mildly enlarged. Retrocardiac density with suggestion o f air-fluid level, likely related to moderate sized hiatal hernia. Aorta is partially calcified and t ortuous. Pulmonary vascularity: Not increased, Lungs/Pleura: Lungs appear hyperinflated with coarsening of the interstitium which could be due to [place] PD. Evaluation for any possible nodules is limited in this setting, and if of concern a low-dose outp atient chest CT may be obtained in this regard. No definite acute consolidation, sizable pleural effu alvarez, or pneumothorax. Mild bibasilar atelectasis. Musculoskeletal: Osseous mineralization appears diminished. Moderate degenerative changes of the spin e with slight exaggerated thoracic kyphosis which appears related to vertebral body height loss/wedgi ng at several levels. Mild/moderate degenerative change of the shoulders. Other findings: None. IMPRESSION: 1. No focal lung consolidation or other clearly acute abnormality. 2. Mild bibasilar atelectasis. 3. Suspect background COPD. 4. Diminished osseous mineralization with moderate degenerative changes of the spine and vertebral b sergio height loss/wedging at several levels. These are favored to be chronic, but technically age indet erminate. Correlate for any back pain.
[2023-05-16] MEDS ORDERED: HYDROmorphone 0.5 MG/0.5 ML SYRINGE IVP PRN (00:56)
[2023-05-16] MEDS ORDERED: ONDANSETRON 4 MG/2 ML VIAL IVP PRN (00:56)
[2023-05-16] MEDS ORDERED: NALOXONE 0.4 MG/ML 1 ML VIAL IV PRN (00:56)
[2023-05-16] MEDS ORDERED: IPRATROPIUM-ALBUTEROL 3 ML NEB INHALATION PRN (00:58)
[2023-05-16] MEDS: SODIUM CHLORIDE 0.9% 1,000 ML IV SCH ×2 (02:11→19:09)
[2023-05-16] MEDS ORDERED: ACETAMINOPHEN TAB 325 MG TAB PO PRN (11:15)
--- NOTE | 2023-05-16 11:21 | P.HPIM ---
History of Present Illness 82-year-old female came in the complains of nausea vomiting epigastric abdominal discomfort. Patient does take naproxen at home patient was admitted with diagnosis of UTI but the patient doesn't have any symptoms of urinary tract in fection urine is only positive for leukocyte esterase patient was given Rocephin in the ER. Patient does have elevated white count of 24,000. Patient was complaining of left lower quadrant abdominal pain CT with contrast of the abdomen did not show any significant abnormality. Patient was on antibiotics. Patient denied any diarrhea. Denied any hematuria dysuria urinary urgency increased frequency. Patient's urine is positive for 4+ ketones her hemoglobin A1c him from 2020 it was 5.5. REVIEW OF SYSTEMS: CONSTITUTIONAL: No fever, no malaise, no fatigue. HEENT: No recent visual problems or hearing problems. Denied any sore throat. CARDIOVASCULAR: No chest pain, orthopnea, PND, no palpitations, no syncope. PULMONARY: No shortness of breath, no cough, no hemoptysis. GASTROINTESTINAL: No diarrhea, NEUROLOGICAL: No headaches, no weakness, no numbness. HEMATOLOGICAL: Denies any bleeding or petechiae. GENITOURINARY: Denies any burning micturition, frequency, or urgency. MUSCULOSKELETAL/RHEUMATOLOGICAL: Denies any joint pain, swelling, or any muscle pain. ENDOCRINE: Denies any polyuria or polydipsia. The rest of the 14-point review of systems is negative. PHYSICAL EXAMINATION: GENERAL: The patient is alert and oriented x3, not in any acute distress. Thin built female HEENT: Pupils are round and equally reacting to light. EOMI. No scleral icterus. No conjunctival pallor. Normocephalic, atraumatic. No pharyngeal erythema. No thyromegaly. CARDIOVASCULAR: S1 and S2 present. No murmurs, rubs, or gallops. PULMONARY: Chest is clear to auscultation, no wheezing or crackles. ABDOMEN: Soft, nontender, nondistended, normoactive bowel sounds. No palpable organomegaly. MUSCULOSKELETAL: No joint swelling or deformity. EXTREMITIES: No cyanosis, clubbing, or pedal edema. NEUROLOGICAL: Gross neurological examination did not reveal any focal deficits. SKIN: No rashes. Assessment and plan -Nausea vomiting: Secondary to gastritis hold off on naproxen will use Tylenol for pain continue with the Dilaudid that was ordered. Patient was started on Protonix IV twice a day. -Starvation ketosis secondary to nausea vomiting no evidence of diuresis mellitus we'll obtain him malignancy -Ruled out urinary tract infection will not require an and medics antibiotics will be discontinued -Leukocytosis reactive secondary to nausea vomiting and gastritis -Back pain with back surgeries in the past pain medications as mentioned above -Generalized weakness physical therapy and outpatient therapy evaluation DVT prophylaxis: Early ambulation Past Medical History Past Medical History: No Reported History Additional Past Medical History / Comment(s): back pain History of Any Multi-Drug Resistant Organisms: None Reported Past Surgical History: Appendectomy, Hysterectomy, Tubal Ligation Past Psychological History: No Psychological Hx Reported Smoking Status: Former smoker Past Alcohol Use History: None Reported Past Drug Use History: None Reported - Past Family History Mother Family Medical History: No Reported History Medications and Allergies Home Medications Medication Instructions Recorded Confirmed Type Calcium Carbonate [Tums] 500 - 1,000 mg PO ACHS PRN 05/15/23 05/15/23 History Magnesium Hydroxide [Milk of 2,400 mg PO DAILY PRN 05/15/23 05/15/23 History Magnesia] Naproxen [EC-Naprosyn] 500 mg PO BID PRN 05/15/23 05/15/23 History Nitrofurantoin Monohyd/M-Cryst 100 mg PO Q12HR 05/15/23 05/15/23 History [Macrobid] Allergies Allergy/AdvReac Type Severity Reaction Status Date / Time No Known Allergies Allergy Verified 05/15/23 19:54 Physical Exam Vitals: Vital Signs Temp Pulse Resp BP Pulse Ox 05/16/23 06:00 109 H 18 126/79 93 L 05/16/23 04:00 114 H 18 120/71 93 L 05/16/23 03:00 118 H 18 126/72 93 L 05/16/23 02:00 119 H 18 130/77 93 L 05/15/23 23:00 115 H 18 117/70 93 L 05/15/23 22:00 119 H 18 132/72 92 L 05/15/23 20:00 114 H 18 142/78 93 L 05/15/23 18:17 98.1 F 112 H 17 137/80 92 L Intake and Output 05/15/23 05/16/23 05/16/23 22:59 06:59 14:59 Other: Voiding Method Toilet Weight 47.174 kg Results CBC & Chem 7: 05/15/23 19:02 05/15/23 19:02 Labs: Abnormal Lab Results - Last 24 Hours (Table) 05/15/23 05/15/23 05/15/23 Range/Units 19:02 19:02 19:02 WBC 24.3 H (3.8-10.6) k/uL RDW 16.4 H (11.5-15.5) % Plt Count 86 L (150-450) k/uL Neutrophils # (Manual) 21.38 H (1.3-7.7) k/uL Lymphocytes # (Manual) 0.24 L (1.0-4.8) k/uL Monocytes # (Manual) 2.67 H (0-1.0) k/uL Creatinine 0.34 L (0.52-1.04) mg/dL Glucose 118 H (74-99) mg/dL Urine Ketones 4+ H (Negative) Ur Leukocyte Esterase Moderate H (Negative) Urine WBC 38 H (0-5) /hpf Urine Bacteria Rare H (None) /hpf
[2023-05-16] MEDS: PANTOPRAZOLE 40 MG TABLET PO SCH ×2 (12:36→17:57)
[2023-05-17] MEDS ORDERED: CALCIUM CARBONATE 500 MG CHEWABLE PO PRN (05:12)
[2023-05-17] MEDS ORDERED: MAGNESIUM HYDROXIDE 2,400 MG/30 ML CUP PO PRN (05:12)
[2023-05-17] MEDS: SODIUM CHLORIDE 0.9% 1,000 ML IV SCH (05:32)
[2023-05-17] MEDS: PANTOPRAZOLE 40 MG TABLET PO SCH (06:35)
[2023-05-17 09:03] LABS: Blood Urea Nitrogen 11.6 mg/dL (9.0-27.0); Calcium 8.9 mg/dL (8.7-10.3); Carbon Dioxide 24.9 mmol/L (21.6-31.8); Chloride 104 mmol/L (96-109); Glucose 88 mg/dL (70-110); Magnesium 1.9 mg/dL (1.5-2.4); Sodium 139 mmol/L (135-145)
[2023-05-17 10:18] LABS: HCT 35.7 % (37.2-46.3); HGB 11.5 g/dL (12.0-15.0); Immature Platelet Fraction 43.1 % (1.1-6.1); MCH 26.6 pg (27.0-32.0); MCHC 32.2 g/dL (32.0-37.0); MCV 82.6 FL (80.0-97.0); NRBC Per 100 WBC 0 X 10*3/uL (0.00-0.01); Platelet Count 86 X 10*3/uL (140-440); RBC 4.32 X 10*6/uL (4.10-5.20); RDW 17.8 % (11.5-14.5); WBC 16.26 X 10*3/uL (4.50-10.00)
[2023-05-17] MEDS ORDERED: LACTULOSE 20 GM/30 ML CUP PO ONE (13:34)
[2023-05-17 14:23] VITALS: BP 128/79; RESP 20; TEMP 98.1
[2023-05-17 14:47] VITALS: BMI 17.8
[2023-05-17 17:35] VITALS: PULSE 111
--- NOTE | 2023-05-18 11:55 | P.DS ---
Providers Date of admission: 05/16/23 00:56 Expected date of discharge: 05/17/23 Attending physician: Bob Yoon Primary care physician: Deion Turner Hospital Course: Final diagnosis -Nausea vomiting: Secondary to gastritis , improved and tolerating diet -Starvation ketosis secondary to nausea vomiting no evidence of diabetes mellitus -Ruled out urinary tract infection -Leukocytosis reactive secondary to nausea vomiting and gastritis -Back pain with back surgeries in the past pain medications as mentioned above -Patient reported history of chronic constipation and lower views -Generalized weakness -GI prophylaxis -Moderate protein calorie malnutrition with a BMI of 7.9 - DVT prophylaxis -Full code Discharge disposition Patient is being discharged in a stable condition with guarded prognosis to Home. Patient will follow-up with Dr. Albarran in the outpatient setting upon discharge. Patient is to continue with Protonix daily and may use lactulose as needed for constipation. Patient to follow-up with pain management outpatient. Total time taken is greater than 35 minutes. Hospital course This is a 82-year-old female who was recently admitted with nausea and vomiting most likely secondary to gastritis with abnormal lab values. Patient with concerns of urinary tract infection from the ER and was given a dose of antibiotics most likely asymptomatic bacteriuria as patient is denying any pain or burning with urination. Patient did have an elevated white count most likely secondary to gastritis and continued nausea and vomiting and is trending down. Patient was provided a prescription for outpatient labs to follow-up in the next 2-3 days. Patient reports feeling improved and will continue on full liquid and slowly transition to low fiber diet as tolerated. Patient uses milk of magnesia often for chronic bowel issues and constipation and has been given a dose of lactulose and make continue as needed. Discussed with the patient about avoiding excessive laxatives and needs to follow-up with pain management outpatient. Patient reports to feeling improved and would like to go home. Currently no reports of chest pain, shortness of breath, or palpitations. Patient is afebrile. No reports of nausea or vomiting and patient is tolerating diet. Patient will be discharged home today. Physical exam: Gen: This is a 82-year-old female who is awake, alert and oriented 3, thin built, elderly appearing, cachectic HEENT: Head is atraumatic, normocephalic. Pupils equal, round. Sclerae is anicteric. NECK: Supple. No JVD. No lymphadenopathy. No thyromegaly. LUNGS: Clear to auscultation. No wheezes or rhonchi. No intercostal retractions. HEART: Regular rate and rhythm. No murmur. ABDOMEN: Soft. Thin, scaphoid Bowel sounds are present. No masses. No tenderness. EXTREMITIES: No pedal edema. No calf tenderness. NEUROLOGICAL: Patient is awake, alert and oriented x3. Cranial nerves 2 through 12 are grossly intact. Please refer to medication reconciliation sheet for a list of medications. The impression and plan of care has been dictated by Ada Hamilton, Nurse Practitioner as directed. Dr. Geremias MD I have performed a history and examination and MDM of this patient, discussed the same with the dictator, and agree with the dictator's assessment and plan as written ,documented as a scribe. Based on total visit time, I have performed more than 50% of the visit. Patient Condition at Discharge: Fair Plan - Discharge Summary New Discharge Prescriptions: New Lactulose 20 gm PO BID PRN #240 ml PRN Reason: Constipation Acetaminophen Tab [Tylenol] 650 mg PO Q6HR PRN #30 tab PRN Reason: Fever And/ Or Pain Ipratropium-Albuterol Nebulize [Duoneb 0.5 mg-3 mg/3 ml Soln] 3 ml INHALATION RT-QID PRN each PRN Reason: Shortness Of Breath Or Wheezing Pantoprazole [Protonix] 40 mg PO DAILY 15 Days #15 tab Continue Magnesium Hydroxide [Milk of Magnesia] 2,400 mg PO DAILY PRN PRN Reason: Constipation Calcium Carbonate [Tums] 500 - 1,000 mg PO ACHS PRN PRN Reason: Gi Upset Discontinued Nitrofurantoin Monohyd/M-Cryst [Macrobid] 100 mg PO Q12HR Naproxen [EC-Naprosyn] 500 mg PO BID PRN PRN Reason: Pain Discharge Medication List Calcium Carbonate [Tums] 500 - 1,000 mg PO ACHS PRN 05/15/23 [History] Magnesium Hydroxide [Milk of Magnesia] 2,400 mg PO DAILY PRN 05/15/23 [History] Acetaminophen Tab [Tylenol] 650 mg PO Q6HR PRN #30 tab 05/17/23 [Rx] Ipratropium-Albuterol Nebulize [Duoneb 0.5 mg-3 mg/3 ml Soln] 3 ml INHALATION RT-QID PRN each 05/17/23 [Rx] Lactulose 20 gm PO BID PRN #240 ml 05/17/23 [Rx] Pantoprazole [Protonix] 40 mg PO DAILY 15 Days #15 tab 05/17/23 [Rx] Follow up Appointment(s)/Referral(s): Yue Albarran MD [Primary Care Provider] - 1-2 days Ambulatory/Diagnostic Orders: Complete Blood Count w/diff [LAB.AMB] Time Frame: 3 Days, Location: None Selected Patient Instructions/Handouts: Constipation (DC) Activity/Diet/Wound Care/Special Instructions: Activity Limited until follow-up Follow-up with primary care provider on discharge Repeat labs in 2-3 days Continue full liquid diet and slowly advanced to the fiber over the next few days as tolerated Continue with lactulose twice daily as needed if having continued constipation. Hold if having loose stools May use milk of magnesia as needed for constipation Discharge Disposition: HOME SELF-CARE
== END 2023-05-17 17:51 | disposition home or self-care (01) ==
LOC: EC 18:07 → 6NMEDSUR 05-16 00:56
PROVIDERS: ADMIT Hospitalist; ATTEND Hospitalist
DX: R11.2 Nausea with vomiting, unspecified (principal); E88.89 Other specified metabolic disorders; D72.829 Elevated white blood cell count, unspecified; G89.29 Other chronic pain; M54.9 Dorsalgia, unspecified; R53.1 Weakness; K59.09 Other constipation; N39.0 Urinary tract infection, site not specified; E44.0 Moderate protein-calorie malnutrition; Z68.1 Body mass index [BMI] 19.9 or less, adult; Z20.822 Contact with and (suspected) exposure to COVID-19; Z87.891 Personal history of nicotine dependence
CPT/HCPCS: 96361 ×4; 96376; 96374; 96375 ×2; 99285; 51798; 36415; 97162; 97166; 80053; 80048; 82150; 83605; 83690; 83735; 85025; 85027; 81001; 83036; 87636; 71046; 74177; G0378 ×2; J2405; J0696; J1885; Q9967

== ENCOUNTER 2023-12-08 10:29 | Emergency (ER) | payer MEDICARE ==
--- NOTE | 2023-12-08 11:10 | ED ---
General Adult HPI - General Chief complaint: Dizziness Stated complaint: Fall-L knee, R hand numbness Time Seen by Provider: 12/08/23 10:42 Source: patient, family Mode of arrival: wheelchair Limitations: no limitations - History of Present Illness Initial comments: Dictation was produced using [employer] dictation software. please excuse any grammatical, word or spelling errors. Chief Complaint: 84-year-old female with no known comorbidities presents to the ER for episode of lightheadedness History of Present Illness: Patient is 84-year-old female she had an episode of lightheadedness. States that she was washing her dishes when she was done she w as going to the table all of a sudden felt brief episode of lightheadedness. She had to lower herself down. She stayed there for couple minutes until she started to feel fine. Apparently she had some associated right hand numbness. Denies any symptoms in her face. Patient is no history of stroke. She states that she is asymptomatic at the bedside. Patient has no pain complaints. The ROS documented in this emergency department record has been reviewed and confirmed by me. Those systems with pertinent positive or negative responses have been documented in the HPI. All other systems are other negative and/or noncontributory. - Related Data Home Medications Medication Instructions Recorded Confirmed Calcium Carbonate [Tums] 500 - 1,000 mg PO ACHS PRN 05/15/23 05/15/23 Magnesium Hydroxide [Milk of 2,400 mg PO DAILY PRN 05/15/23 05/15/23 Magnesia] Previous Rx's Medication Instructions Recorded Acetaminophen Tab [Tylenol] 650 mg PO Q6HR PRN #30 tab 05/17/23 Ipratropium-Albuterol Nebulize 3 ml INHALATION RT-QID PRN each 05/17/23 [Duoneb 0.5 mg-3 mg/3 ml Soln] Lactulose 20 gm PO BID PRN #240 ml 05/17/23 Pantoprazole [Protonix] 40 mg PO DAILY 15 Days #15 tab 05/17/23 Allergies Allergy/AdvReac Type Severity Reaction Status Date / Time No Known Allergies Allergy Verified 05/15/23 19:54 Review of Systems ROS Statement: Those systems with pertinent positive or pertinent negative responses have been documented in the HPI. ROS Other: All systems not noted in ROS Statement are negative. Past Medical History Past Medical History: No Reported History Additional Past Medical History / Comment(s): back pain History of Any Multi-Drug Resistant Organisms: None Reported Past Surgical History: Appendectomy, Hysterectomy, Tubal Ligation Past Psychological History: No Psychological Hx Reported Smoking Status: Former smoker Past Alcohol Use History: None Reported Past Drug Use History: None Reported - Past Family History Mother Family Medical History: No Reported History General Exam - General Exam Comments Initial Comments: PHYSICAL EXAM: General Impression: Alert and oriented x3, not in acute distress HEENT: Normocephalic atraumatic, extra-ocular movements intact, pupils equal and reactive to light bilaterally, mucous membranes moist. Cardiovascular: Heart regular rate and rhythm Chest: Able to complete full sentences, no retractions, no tachypnea Abdomen: abdomen soft, non-tender, non-distended, no organomegaly Musculoskeletal: Pulses present and equal in all extremities, no peripheral edema Motor: no focal deficits noted Neurological: CN II-XII grossly intact, no focal motor or sensory deficits noted Skin: Intact with no visualized rashes Psych: Normal affect and mood Limitations: no limitations Course Vital Signs 12/08/23 12/08/23 10:35 13:15 Temperature 98.2 F Pulse Rate 87 92 Respiratory 16 22 Rate Blood Pressure 149/79 108/87 O2 Sat by Pulse 95 95 Oximetry EKG Findings - EKG Comments: EKG Findings:: My EKG interpretation: Ventricular rate 79, sinus rhythm,. 188, QRS 114, QTc 400. No DC prolongation, no QTC prolongation, no ST or T-wave changes noted. Overall, this EKG is unremarkable Medical Decision Making - Medical Decision Making Was pt. sent in by a medical professional or institution (, PA, LIQUOR ESTABLISHMENT MANAGER, urgent care, hospital, or detention...) When possible be specific @ -No Did you speak to anyone other than the patient for history (EMS, parent, family, police, friend...)? What history was obtained from this source @ -No Did you review nursing and triage notes (agree or disagree)? Why? @ -I reviewed and agree with nursing and triage notes Were old charts reviewed (outside hosp., previous admission, EMS record, old EKG, old radiological studies, urgent care reports/EKG's, detention records)? Report findings @ -No old charts were reviewed Differential Diagnosis (chest pain, altered mental status, abdominal pain women, abdominal pain men, vaginal bleeding, musculoskeletal, weakness, fever, dyspnea, syncope, headache, dizziness, GI bleed, back pain, seizure, CVA, palpatations, mental health)? @ -Differential Syncope: Valvular disease, hypertrophic cardiomyopathy, pulmonary embolism, tamponade, tachycardia, bradycardia, MT, hypovolemia, hemorrhage, dissection, anemia, intracranial hemorrhage, seizure, hypoglycemia, carbon monoxide poisoning, this is not meant to be an all-inclusive list. EKG interpreted by me (3pts min.). @ -See above X-rays interpreted by me (1pt min.). @ -None done CT interpreted by me (1pt min.). @ -None done U/S interpreted by me (1pt. min.). @ -None done What testing was considered but not performed or refused? (CT, X-rays, U/S, labs)? Why? @ -None What meds were considered but not given or refused? Why? @ -None Was smoking cessation discussed for >3mins.? @ -No Were there social determinants of health that impacted care today? How? (Homelessness, low income, unemployed, alcoholism, drug addiction, transporta tion, low edu. Level, literacy, decrease access to med. care, [facility], rehab)? @ -No Was there de-escalation of care discussed even if they declined (Discuss DNR or withdrawal of care, Hospice)? DNR status @ -No What co-morbidities impacted this encounter? (DM, HTN, Smoking, COPD, CAD, Cancer, CVA, ARF, Chemo, Hep., AIDS, mental health diagnosis, sleep apnea, morbid obesity)? @ -Advanced age Was patient admitted / discharged? Hospital course, mention meds given and route, prescriptions, significant lab abnormalities, going to OR and other pertinent info. @ -83-year-old female presents emergency department for episode of presyncope. Vital signs stable. Patient denies any cardiac history. Patient denies any symptoms at the bedside. Laboratory evaluation obtained. Leukocytosis of 18.0 unclear etiology likely secondary to stress. Metabolic panel and urinalysis is negative. X-ray is negative. Patient reevaluated at the bedside at 1:51 PM after 3 hours and 21 minutes of ER observation. She is continue well-appearing she is agreeable for discharge. Return precautions discussed. Patient given referral to Dr. Curtis per daughter's request. Did you discuss the management of the patient with other professionals (professionals i.e. , PA, LIQUOR ESTABLISHMENT MANAGER, lab, RT, psych nurse, social media designer, cnc maintenance technician, teacher, legal compliance officer, family independence case manager)? Give summary @ -No Was critical care preformed (if so, how long)? @ -No Undiagnosed new problem with uncertain prognosis? @ -No Drug Therapy requiring intensive monitoring for toxicity (Heparin, Nitro, Insulin, Cardizem)? @ -No Were any procedures done? @ -No Diagnosis/symptom? Acute, or Chronic, or Acute on Chronic? Uncomplicated (without systemic symptoms) or Complicated (systemic symptoms)? @ -Presyncope Side effects of treatment? @ -No Exacerbation, Progression, or Severe Exacerbation? @ -No Poses a threat to life or bodily function? How? (Chest pain, USA, MT, pneumonia, PE, COPD, DKA, ARF, appy, cholecystitis, CVA, Diverticulitis, Homicidal, Suicidal, threat to staff... and all critical care pts) @ -No - Lab Data Result diagrams: 12/08/23 11:32 12/08/23 11:32 Lab Results 12/08/23 12/08/23 12/08/23 Range/Units 11:32 11:32 13:10 WBC 18.0 H (3.8-10.6) k/uL RBC 4.34 (3.80-5.40) m/uL Hgb 12.0 (11.4-16.0) gm/dL Hct 37.7 (34.0-46.0) % MCV 86.9 (80.0-100.0) fL MCH 27.7 (25.0-35.0) pg MCHC 31.9 (31.0-37.0) g/dL RDW 16.2 H (11.5-15.5) % Plt Count 128 L (150-450) k/uL MPV 14.9 Neutrophils % 81 % Lymphocytes % 7 % Monocytes % 9 % Eosinophils % 0 % Basophils % 1 % Neutrophils # 14.5 H (1.3-7.7) k/uL Lymphocytes # 1.3 (1.0-4.8) k/uL Monocytes # 1.7 H (0-1.0) k/uL Eosinophils # 0.1 (0-0.7) k/uL Basophils # 0.2 (0-0.2) k/uL Manual Slide Review Performed Anisocytosis Slight Sodium 136 L (137-145) mmol/L Potassium 5.1 (3.5-5.1) mmol/L Chloride 103 (98-107) mmol/L Carbon Dioxide 27 (22-30) mmol/L Anion Gap 6 mmol/L BUN 16 (7-17) mg/dL Creatinine 0.38 L (0.52-1.04) mg/dL Est GFR (CKD-EPI)AfAm >90 (>60 ml/min/1.73 sqM) Est GFR (CKD-EPI)NonAf >90 (>60 ml/min/1.73 sqM) Glucose 87 (74-99) mg/dL Calcium 9.3 (8.4-10.2) mg/dL Magnesium 2.0 (1.6-2.3) mg/dL Urine Color Colorless Urine Appearance Clear (Clear) Urine pH 6.5 (5.0-8.0) Ur Specific [place] 1.008 (1.001-1.035) Urine Protein Negative (Negative) Urine Glucose (UA) Negative (Negative) Urine Ketones Negative (Negative) Urine Blood Negative (Negative) Urine Nitrite Negative (Negative) Urine Bilirubin Negative (Negative) Urine Urobilinogen <2.0 (<2.0) mg/dL Ur Leukocyte Esterase Large H (Negative) Urine RBC 1 (0-5) /hpf Urine WBC 2 (0-5) /hpf Ur Squamous Epith Cells 1 (0-4) /hpf Urine Bacteria Rare H (None) /hpf Urine Mucus Rare H (None) /hpf Disposition Clinical Impression: Pre-syncope Disposition: HOME SELF-CARE Condition: Good Instructions (If sedation given, give patient instructions): Dizziness (ED) Is patient prescribed a controlled substance at d/c from ED?: No Referrals: Kristen Curtis MD [STAFF PHYSICIAN] - 1-2 days Time of Disposition: 13:52
[2023-12-08] MEDS: SODIUM CHLORIDE 0.9% 500 ML 500 ML IV STA (11:31)
[2023-12-08 11:50] LABS: African American GFR (CKD) >90 (>60 ml/min/1.73 sqM); Anion Gap 6 mmol/L; Blood Urea Nitrogen 16 mg/dL (7-17); Calcium 9.3 mg/dL (8.4-10.2); Carbon Dioxide 27 mmol/L (22-30); Chloride 103 mmol/L (98-107); Glucose 87 mg/dL (74-99); Non-African American GFR(CKD) >90 (>60 ml/min/1.73 sqM); Sodium 136 mmol/L (137-145)
[2023-12-08 11:51] LABS: Potassium 5.1 mmol/L (3.5-5.1)
[2023-12-08 12:11] LABS: Anisocytosis Slight; Basophils # (A) 0.2 k/uL (0-0.2); Basophils % (A) 1 %; Eosinophils # (A) 0.1 k/uL (0-0.7); Eosinophils % (A) 0 %; HCT 37.7 % (34.0-46.0); Lymphocytes # (A) 1.3 k/uL (1.0-4.8); Lymphocytes % (A) 7 %; MCH 27.7 pg (25.0-35.0); MCHC 31.9 g/dL (31.0-37.0); MCV 86.9 fL (80.0-100.0); Mean Platelet Volume 14.9; Monocytes # (A) 1.7 k/uL (0-1.0); Monocytes % (A) 9 %; Neutrophils # (A) 14.5 k/uL (1.3-7.7); Neutrophils % (A) 81 %; RBC 4.34 m/uL (3.80-5.40); RDW 16.2 % (11.5-15.5)
--- NOTE | 2023-12-08 12:20 | CT ---
EXAMINATION TYPE: CT brain wo con CT DLP: 1241.4 mGycm, Automated exposure control for dose reduction was used. DATE OF EXAM: 12/08/2023 11:47 AM COMPARISON: 04/27/2010. CLINICAL INDICATION:Female, 83 years old with history of dizziness, dizziness, weak right side. TECHNIQUE: Brain: Axial CT images of the brain were obtained with coronal and sagittal reformats created and rev iewed. Contrast used: None. Oral contrast used: None. FINDINGS: Extra-axial spaces: No abnormal extra-axial fluid collections. Basilar cisterns are patent. Ventricular system: Ventricles appear dilated in proportion to the degree of cerebral atrophy. Cerebral parenchyma: No increased attenuation to suggest acute intraparenchymal hemorrhage. The gra y-white matter interface appears maintained. Moderate generalized brain atrophy. There are severe m ostly confluent hypoattenuating areas are seen within the cerebral white matter, nonspecific but most often seen with chronic microvascular ischemic changes; Cerebellum: No acute abnormality. Mass effect: No evidence of mass effect or midline shift. Intracranial vasculature: Atherosclerotic calcifications of the larger arteries near the skull base. Soft tissues: No acute or concerning abnormality. Visualized orbits: Orbital contents appear grossly intact. Calvarium/osseous structures: The skull appears osteopenic but intact.. Paranasal sinuses and mastoid air cells: Clear. MRI is more sensitive for detecting acute processes such as infarct, and may be considered if clinica lly warranted. IMPRESSION: 1. No acute intracranial CT abnormality. 2. Moderate atrophy and severe chronic ischemic white matter changes.
[2023-12-08 12:48] LABS: Platelet Count 128 k/uL (150-450)
--- NOTE | 2023-12-08 13:32 | XR ---
EXAMINATION TYPE: XR chest 2V DATE OF EXAM: 12/08/2023 1:27 PM CLINICAL INDICATION:Female, 83 years old with history of presyncope; [facility] COMPARISON: Chest radiographs from 05/15/2023 TECHNIQUE: XR chest 2V Frontal view of the chest. FINDINGS: Lungs/Pleura: There is no evidence of pleural effusion, focal consolidation, or pneumothorax. Pulmonary vascularity: Mild pulmonary vascular congestion. Heart/mediastinum: Cardiomediastinal silhouette is enlarged and stable. Musculoskeletal: No acute osseous pathology. IMPRESSION: mild pulmonary vascular congestion suggested with cardiomegaly. Correlate with BNP for congestive hea rt failure.
[2023-12-08 13:41] LABS: Appearance,Urine Clear (Clear); Bacteria,Urine Rare /hpf; Bilirubin,Urine Negative (Negative); Blood,Urine Negative (Negative); Color,Urine Colorless; Glucose,Urine (UA) Negative (Negative); Ketones,Urine Negative (Negative); Leukocyte Esterase,Urine Large (Negative); Mucus,Urine Rare /hpf; Nitrite,Urine Negative (Negative); PH, Urine 6.5 (5.0-8.0); Protein,Urine Negative (Negative); RBC,Urine 1 /hpf (0-5); Specific Gravity,Urine 1.008 (1.001-1.035); Squamous Epithelial Cell,Urine 1 /hpf (0-4); Urobilinogen,Urine <2.0 mg/dL (<2.0); WBC,Urine 2 /hpf (0-5)
[2023-12-08 15:24] VITALS: BP 124/73; PULSE 93; RESP 19; TEMP 98.3
== END 2023-12-08 14:50 | disposition home or self-care (01) ==
LOC: EC 10:29
DX: R55 Syncope and collapse (principal); Z87.891 Personal history of nicotine dependence
CPT/HCPCS: 36415; 70450; 71046; 80048; 81001; 83735; 85025; 93005; 99284

== ENCOUNTER 2024-01-24 10:05 | Emergency (ER) | payer MEDICARE ==
[2024-01-24] MEDS ORDERED: MORPHINE SULFATE 4 MG/ML SYRINGE ONE (11:03)
[2024-01-24] MEDS ORDERED: cefTRIAXone 1,000 MG VIAL (IM USE) IM ONE (16:22)
--- NOTE | 2024-02-12 06:46 | CT ---
Patient: Lin Durant Ordering Physician: Unknown, Unknown ID: [id number] Phone, Pager: Phone: N/A Pager: N/A : [phone] Age/Gender: 83Y, F Primary Location: N/A Procedure: CT abdomen pelvis w con Study Date: 01/24/2024 12:11:00 PM EXAMINATION TYPE: CT abdomen pelvis w con DATE OF EXAM: 01/24/2024 COMPARISON: 05/15/2023 INDICATION: Pain and bladder region DLP: 5-0.6 mGycm, Automated exposure control for dose reduction was used. CONTRAST: 0 mL of Isovue 300. Study performed without Oral Contrast TECHNIQUE: Axial images were obtained from above the diaphragm to the pubic rami in the axial plane a t 5 mm thick sections. Reconstructed images are reviewed on the computer in the coronal plane. FINDINGS: Limited CT sections are obtained the lung bases. The lung bases are clear. CT ABDOMEN: Moderate size hiatal hernia is present. Liver: Hepatic cyst in the right lobe liver. Spleen: Normal Pancreas: Normal Adrenal glands: The adrenal glands are normal. Gallbladder: Normal Kidneys: No masses are evident. No hydronephrosis is present. There is a inferior lateral pole left renal cyst measuring 2.2 cm. Delayed images were obtained through the kidneys, which remain unremar kable. Aorta: Vascular calcification is within the aorta. Inferior vena cava: Normal. CT PELVIS: Loops of bowel within the abdomen and pelvis are normal. The study is without oral contrast limit ing bowel evaluation. Scattered fecal debris is within the colon. Appendix: Normal as visualized. There is limited contrast within the urinary bladder on delayed image s. Right posterior lateral filling defect is not excluded. Urinary bladder: Normal. Genitourinary structures: Pessary is present. Uterus appears unremarkable on the delayed images. Some increased vascularity may be present on the early phase. Adnexal masses are not identified. Osseous structures: No suspicious lytic or sclerotic lesions. IMPRESSION: 1. Limited visualization of the urinary bladder. Filling defect within the right posterior lateral u rinary bladder is not excluded. Consider additional workup. 2. No suspicious acute changes CT abdomen and pelvis.
== END 2024-01-24 15:17 | disposition home or self-care (01) ==
LOC: EC 10:05
CPT/HCPCS: 74177; 99284

== ENCOUNTER 2024-03-24 07:21 | Inpatient (IN) | payer MEDICARE ==
--- NOTE | 2024-03-24 07:43 | ED ---
Female Urogenital HPI - General Chief complaint: Vaginal Bleeding Stated complaint: Vaginal bleeding Time Seen by Provider: 03/24/24 07:27 Source: patient, RN notes reviewed Mode of arrival: ambulatory Limitations: no limitations - History of Present Illness Initial comments: 81-year-old female presents emergency department for vaginal bleeding vs hematu vick.. States that when she woke up this morning she felt like she needed to use the bathroom. When she went to the restroom she noticed a large amount of blood. She noticed this on the toilet paper when she wiped as well and thinks that it was more likely to be vaginal bleeding, but is not entirely sure. She did have some burning with urination at the time. Reports some abdominal cramping. Denies any dizziness or lightheadedness. Not taking any blood thinners. Denies any history of postmenopausal vaginal bleeding. MD Complaint: vaginal bleeding - Related Data Home Medications Medication Instructions Recorded Confirmed Ibuprofen [Motrin Ib] 400 mg PO TID 03/24/24 03/24/24 Multivit-Min/FA/Lycopen/Lutein 1 tab PO DAILY 03/24/24 03/24/24 [Centrum Silver Tablet] Allergies Allergy/AdvReac Type Severity Reaction Status Date / Time No Known Allergies Allergy Verified 03/24/24 11:30 Review of Systems ROS Statement: Those systems with pertinent positive or pertinent negative responses have been documented in the HPI. ROS Other: All systems not noted in ROS Statement are negative. Past Medical History Past Medical History: No Reported History Additional Past Medical History / Comment(s): back pain History of Any Multi-Drug Resistant Organisms: None Reported Past Surgical History: Appendectomy, Hysterectomy, Tubal Ligation Past Psychological History: No Psychological Hx Reported Smoking Status: Former smoker Past Alcohol Use History: None Reported Past Drug Use History: None Reported - Past Family History Mother Family Medical History: No Reported History General Exam Limitations: no limitations General appearance: alert, in no apparent distress Head exam: Present: atraumatic, normocephalic, normal inspection Respiratory exam: Present: normal lung sounds bilaterally. Absent: respiratory distress, wheezes, rales, rhonchi, stridor Cardiovascular Exam: Present: regular rate, normal rhythm, normal heart sounds. Absent: systolic murmur, diastolic murmur, rubs, gallop, clicks GI/Abdominal exam: Present: soft, normal bowel sounds. Absent: distended, tenderness, guarding, rebound, rigid External exam: Present: other (Active bleeding from the patient's ureter. No bleeding originating in the vaginal canal) Neurological exam: Present: alert, oriented X3, CN II-XII intact Psychiatric exam: Present: normal affect, normal mood Skin exam: Present: warm, dry, intact, normal color. Absent: rash Course Vital Signs 03/24/24 03/24/24 03/24/24 07:22 08:34 10:00 Temperature 98.3 F 97.7 F Pulse Rate 111 H 98 104 H Respiratory 18 24 20 Rate Blood Pressure 134/73 112/67 143/77 O2 Sat by Pulse 98 94 L 97 Oximetry 03/24/24 03/24/24 03/24/24 12:27 13:15 13:59 Temperature Pulse Rate 118 H 122 H 128 H Respiratory 18 18 24 Rate Blood Pressure 117/75 133/86 133/86 O2 Sat by Pulse 94 L 98 92 L Oximetry 03/24/24 14:49 Temperature Pulse Rate 122 H Respiratory 20 Rate Blood Pressure O2 Sat by Pulse 92 L Oximetry Medical Decision Making - Medical Decision Making This is an 83 year old female who presents to the emergency department for vaginal bleeding. Was pt. sent in by a medical professional or institution? @ -No Did you speak to anyone other than the patient for history? @ -No Did you review nursing and triage notes? @ -Yes, and I agree, it is accurate with regards to the patient's symptoms. Were old charts reviewed? @ -No Differential Diagnosis? @ -Differential Vaginal Bleeding: Spontaneous , threatened , molar , ectopic , incompetent cervix, placenta previa, uterine rupture, dysfunctional uterine bleeding, hemorrhage, uterine fibroids, malignancy, coagulopathy, PID, cervicitis, adenomyosis, vaginal trauma, this is not meant to be an all- inclusive list. EKG interpreted by me (3pts min.)? @ -EKG interpreted by me demonstrating the following: Sinus tachycardia. Ve ntricular rate 118 bpm, WA interval 172 ms, QRS duration 86 ms, QTc 434 ms. X-rays interpreted by me (1pt min.)? @ -Not obtained CT interpreted by me (1pt min.)? @ -CT scan of the abdomen and pelvis obtained. My interpretation identifies a bladder mass. U/S interpreted by me (1pt. min.)? @ -Pelvic ultrasound obtained. My interpretation identifies a mass in what could be the bladder versus uterus. What testing was considered but not performed? (CT, X-rays, U/S, labs)? Why? @ -None What meds were considered but not given? Why? @ -None Did you discuss the management of the patient with other professionals? @ -Yes, Dr. Marquez, urology, who is agreeable to medical admission with him on consult. Dr. Holley accepts the patient for admission to medicine. Did you reconcile home meds? @ -Yes Was smoking cessation discussed for >3mins.? @ -No Was critical care preformed (if so, how long)? @ -No Were there social determinants of health that impacted care today? How? (Homelessness, low income, unemployed, alcoholism, drug addiction, transportation, low edu. Level, literacy, decrease access to med. care, senior care, rehab)? @ -No Was there de-escalation of care discussed even if they declined? (Discuss DNR or withdrawal of care, Hospice)? @ -No What co-morbidities impacted this encounter? (DM, HTN, Smoking, COPD, CAD, Cancer, CVA, Hep., AIDS, mental health diagnosis, sleep apnea, morbid obesity)? @ -None Was patient admitted / discharged? @ -Admitted. Lab work demonstrates mild leukocytosis with a white blood cell count of 13.2. Hemoglobin within normal limits at 12.4. Urinalysis demonstrates a large amount of blood and cannot be fully characterized. Urine sent for culture. Patient was initially concerned about vaginal bleeding and a pelvic ultrasound was obtained. This revealed a possible 11.2 cm rounded heterogeneous solid mass versus hematoma versus fungus ball in the bladder. The uterus is visualized, however the endometrial stripe and ovary cannot be clearly visualized. CT scan of the abdomen and pelvis obtained for better evaluation. This demonstrates a hyperdense lesion measuring up to 10.3 cm in the urinary bladder corresponding to ultrasound. They advised that this may represent blood products and/or neoplasm and direct visualization is recommended. Patient continued to have cramping and bleeding. Repeat CBC demonstrates a hemoglobin of 11.2 decreased from 12.4 approximately 3 hours earlier. Pan catheter was inserted and the bladder was irrigated. Several blood clots did come out. 1 g of TXA administered as well. Despite several irrigations, she did continue to have severe pain and cramping. Pain was not controlled with several doses of IV analgesics. She also continued to be tachycardic with a heart rate in the 120s. Case discussed with Dr. Marquez, urology. He reviewed the patient's images and is agreeable to medical admission given her pain and continued bleeding. Patient admitted to medicine for gross hematuria, intractable abdominal pain, and bladder mass. Urology listed as consult. Case discussed with ED attending Dr. Soni. Undiagnosed new problem with uncertain prognosis? @ -None Drug Therapy requiring intensive monitoring for toxicity (Heparin, Nitro, Insulin, Cardizem)? @ -None Were any procedures done? @ -None Diagnosis/symptom? @ -Gross hematuria, intractable abdominal pain, bladder mass Acute, or Chronic, or Acute on Chronic? @ -Acute Uncomplicated (without systemic symptoms) or Complicated (systemic symptoms)? @ -Uncomplicated Side effects of treatment? @ -None Exacerbation, Progression, or Severe Exacerbation] @ -Not applicable Poses a threat to life or bodily function? @ -Yes, further blood loss can be life threatening - Lab Data Result diagrams: 03/24/24 11:41 03/24/24 08:18 Lab Results 03/24/24 03/24/24 03/24/24 Range/Units 08:18 08:18 08:18 WBC 13.2 H (3.8-10.6) k/uL RBC 4.56 (3.80-5.40) m/uL Hgb 12.4 (11.4-16.0) gm/dL Hct 39.7 (34.0-46.0) % MCV 87.0 (80.0-100.0) fL MCH 27.1 (25.0-35.0) pg MCHC 31.1 (31.0-37.0) g/dL RDW 16.5 H (11.5-15.5) % Plt Count 120 L (150-450) k/uL MPV 14.0 Neutrophils % 74 % Lymphocytes % 11 % Monocytes % 11 % Eosinophils % 0 % Basophils % 0 % Neutrophils # 9.8 H (1.3-7.7) k/uL Lymphocytes # 1.5 (1.0-4.8) k/uL Monocytes # 1.5 H (0-1.0) k/uL Eosinophils # 0.0 (0-0.7) k/uL Basophils # 0.1 (0-0.2) k/uL Manual Slide Review Performed Hypochromasia Moderate Anisocytosis Slight PT 11.1 (10.0-12.5) sec INR 1.0 (<1.2) APTT 25.5 (22.0-30.0) sec Sodium (137-145) mmol/L Potassium (3.5-5.1) mmol/L Chloride (98-107) mmol/L Carbon Dioxide (22-30) mmol/L Anion Gap mmol/L BUN (7-17) mg/dL Creatinine (0.52-1.04) mg/dL Est GFR (CKD-EPI)AfAm (>60 ml/min/1.73 sqM) Est GFR (CKD-EPI)NonAf (>60 ml/min/1.73 sqM) Glucose (74-99) mg/dL Plasma Lactic Acid Baldemar (0.7-2.0) mmol/L Calcium (8.4-10.2) mg/dL Total Bilirubin (0.2-1.3) mg/dL AST (14-36) U/L ALT (4-34) U/L Alkaline Phosphatase (38-126) U/L Total Protein (6.3-8.2) g/dL Albumin (3.5-5.0) g/dL Urine Color Dark Red Urine Appearance Bloody H (Clear) Urine RBC >182 H (0-5) /hpf Urine WBC >182 H (0-5) /hpf 03/24/24 03/24/24 03/24/24 Range/Units 08:18 08:18 11:41 WBC 17.1 H (3.8-10.6) k/uL RBC 4.02 (3.80-5.40) m/uL Hgb 11.2 L (11.4-16.0) gm/dL Hct 34.4 (34.0-46.0) % MCV 85.7 (80.0-100.0) fL MCH 27.9 (25.0-35.0) pg MCHC 32.6 (31.0-37.0) g/dL RDW 16.8 H (11.5-15.5) % Plt Count 111 L (150-450) k/uL MPV 14.2 Neutrophils % % Lymphocytes % % Monocytes % % Eosinophils % % Basophils % % Neutrophils # (1.3-7.7) k/uL Lymphocytes # (1.0-4.8) k/uL Monocytes # (0-1.0) k/uL Eosinophils # (0-0.7) k/uL Basophils # (0-0.2) k/uL Manual Slide Review Hypochromasia Anisocytosis Slight PT (10.0-12.5) sec INR (<1.2) APTT (22.0-30.0) sec Sodium 140 (137-145) mmol/L Potassium 4.1 (3.5-5.1) mmol/L Chloride 106 (98-107) mmol/L Carbon Dioxide 29 (22-30) mmol/L Anion Gap 5 mmol/L BUN 20 H (7-17) mg/dL Creatinine 0.42 L (0.52-1.04) mg/dL Est GFR (CKD-EPI)AfAm >90 (>60 ml/min/1.73 sqM) Est GFR (CKD-EPI)NonAf >90 (>60 ml/min/1.73 sqM) Glucose 94 (74-99) mg/dL Plasma Lactic Acid Baldemar 0.8 (0.7-2.0) mmol/L Calcium 9.1 (8.4-10.2) mg/dL Total Bilirubin 0.5 (0.2-1.3) mg/dL AST 21 (14-36) U/L ALT 13 (4-34) U/L Alkaline Phosphatase 59 (38-126) U/L Total Protein 8.0 (6.3-8.2) g/dL Albumin 4.0 (3.5-5.0) g/dL Urine Color Urine Appearance (Clear) Urine RBC (0-5) /hpf Urine WBC (0-5) /hpf - Radiology Data Radiology results: report reviewed, image reviewed Disposition Clinical Impression: Gross hematuria, Intractable abdominal pain, Bladder mass Disposition: ADMITTED IP TO THIS HOSP
[2024-03-24 08:31] LABS: Anisocytosis Slight; Basophils # (A) 0.1 k/uL (0-0.2); Basophils % (A) 0 %; Eosinophils % (A) 0 %; HCT 39.7 % (34.0-46.0); HGB 12.4 gm/dL (11.4-16.0); Hypochromasia Moderate; Lymphocytes # (A) 1.5 k/uL (1.0-4.8); Lymphocytes % (A) 11 %; MCH 27.1 pg (25.0-35.0); MCHC 31.1 g/dL (31.0-37.0); Monocytes # (A) 1.5 k/uL (0-1.0); Monocytes % (A) 11 %; Neutrophils # (A) 9.8 k/uL (1.3-7.7); Neutrophils % (A) 74 %; RBC 4.56 m/uL (3.80-5.40); RDW 16.5 % (11.5-15.5); WBC 13.2 k/uL (3.8-10.6)
[2024-03-24 08:37] LABS: Appearance,Urine Bloody (Clear); Color,Urine Dark Red; RBC,Urine >182 /hpf (0-5); WBC,Urine >182 /hpf (0-5)
[2024-03-24 08:44] LABS: ALT 13 U/L (4-34); AST 21 U/L (14-36); African American GFR (CKD) >90 (>60 ml/min/1.73 sqM); Alkaline Phosphatase 59 U/L (38-126); Anion Gap 5 mmol/L; Blood Urea Nitrogen 20 mg/dL (7-17); Calcium 9.1 mg/dL (8.4-10.2); Carbon Dioxide 29 mmol/L (22-30); Chloride 106 mmol/L (98-107); Glucose 94 mg/dL (74-99); Non-African American GFR(CKD) >90 (>60 ml/min/1.73 sqM); Partial Thromboplastin Time 25.5 sec (22.0-30.0); Potassium 4.1 mmol/L (3.5-5.1); Prothrombin Time 11.1 sec (10.0-12.5); Sodium 140 mmol/L (137-145); Total Bilirubin 0.5 mg/dL (0.2-1.3)
[2024-03-24] MEDS: SODIUM CHLORIDE 0.9% 1,000 ML IV STA (08:52)
[2024-03-24 09:24] LABS: Platelet Count 120 k/uL (150-450)
[2024-03-24] MEDS: MORPHINE SULFATE 4 MG/ML SYRINGE IVP STA ×2 (10:12→11:33)
--- NOTE | 2024-03-24 10:17 | US ---
EXAMINATION TYPE: US pelvic complete DATE OF EXAM: 03/24/2024 COMPARISON: NONE CLINICAL INDICATION: Female, 83 years old with history of Vaginal bleeding per order. Patient started bleeding this morning. Hx ectopic . . Limited history, patient is unsure if she had on e of her ovaries removed. TECHNIQUE: Transabdominal (TA). Transabdominal grayscale images of the pelvis were acquired. Trans vaginal sonographic images were not performed per Dr. Terry. Patient has pessary in place. FINDINGS: Date of LMP: Unknown per patient EXAM MEASUREMENTS: Uterus: Area measured could be the uterus versus other and measures= 7.4 x 5.2 x 3.0 cm Endometrial Stripe: Not seen with certainty Right Ovary: Obscured Left Ovary: Obscured 1. Uterus: Area measured in the midline pelvis could be the uterus versus other. Appears heterogeneo us. 2. Endometrium: Not seen with certainty 3. Right Ovary: Not visualized 4. Left Ovary: Not visualized 5. Bilateral Adnexa: Obscured by gas 6. Posterior cul-de-sac: There appears to be fluid within. [employer] notes: If anechoic area in the midline pelvis represents the bladder, there appears to be a heterogeneous, solid area within= 6.5 x 11.2 x 7.0 cm. Possible complex mass with solid component (9.7 x 12.0 x 7.7 cm) versus bladder with internal mass? IMPRESSION: 1. Possible 11.2 cm rounded heterogeneous solid mass versus hematoma or fungus ball within the bladde r. Further evaluation recommended. 2. Suspected anteverted uterus visualized. Neither the endometrial stripe or either ovary are clearly visualized. 3. There may be trace pelvic free fluid. [facility], , 03/24/2024 10:15 AM
--- NOTE | 2024-03-24 11:16 | CT ---
EXAMINATION TYPE: CT abdomen pelvis w con CT DLP: 463.1 mGycm, Automated exposure control for dose reduction was used. DATE OF EXAM: 03/24/2024 10:55 AM COMPARISON: CT abdomen pelvis 02/11/2024, 05/15/2023, pelvic ultrasound 03/24/2024 CLINICAL INDICATION:Female, 83 years old with history of Vaginal bleeding, abnormal US; Vaginal bleed ing, abnormal US TECHNIQUE: Standard CT of the abdomen and pelvis following the administration of 100 cc of Isovue 3 00 IV contrast material. Coronal and sagittal reformats were performed. FINDINGS: LOWER CHEST: Posterior dependent subsegmental atelectasis is noted. ABDOMEN LIVER: Stable a few scattered hypodense cysts. GALLBLADDER AND BILE DUCTS: Unremarkable. PANCREAS: Unremarkable. SPLEEN: Unremarkable. ADRENAL GLANDS: Unremarkable. KIDNEYS AND URETERS: No evidence of hydronephrosis or renal calculus. The kidneys enhance symmetrical ly. Stable left pleuroparenchymal 2.1 cm cortical cyst. Contrast is demonstrated within both collecti ng systems on the delayed phase. PELVIS BLADDER: Hyperdense 10.3 x 5.9 cm region within the urinary bladder. No bladder wall thickening ident ified. REPRODUCTIVE: Pessary device identified. Anteverted uterus with prominent enhancing vessel. ABDOMEN & PELVIS STOMACH AND BOWEL: Redemonstration of moderate-sized hiatal hernia. No focal bowel wall thickening or surrounding inflammatory changes. No evidence of bowel obstruction. PERITONEUM: No evidence of pneumoperitoneum or free fluid. VASCULATURE: Mild to moderate atherosclerotic calcifications are present throughout the abdominal aor ta and its branches. No evidence of aortic aneurysm. MUSCULOSKELETAL: No acute osseous abnormalities. Diffuse bone demineralization. Multilevel central co mpression deformities redemonstrated. LYMPH NODES: No evidence for lymphadenopathy. SOFT TISSUE/ABDOMINAL WALL: Unremarkable IMPRESSION: 1. Hyperdense lesion measuring up to 10.3 cm within the urinary bladder corresponding to ultrasound. This may represent blood products and/or neoplasm. Direct visualization is recommended. 2. Moderate-sized hiatal hernia redemonstrated. [facility], , 03/24/2024 11:14 AM
[2024-03-24 12:16] LABS: Anisocytosis Slight; HCT 34.4 % (34.0-46.0); HGB 11.2 gm/dL (11.4-16.0); MCH 27.9 pg (25.0-35.0); MCHC 32.6 g/dL (31.0-37.0); MCV 85.7 fL (80.0-100.0); Mean Platelet Volume 14.2; Platelet Count 111 k/uL (150-450); RBC 4.02 m/uL (3.80-5.40); RDW 16.8 % (11.5-15.5); WBC 17.1 k/uL (3.8-10.6)
[2024-03-24] MEDS: TRANEXAMIC 1,000 MG/100ML-NACL 1,000 MG in SALINE 1 100ML.BAG IVPB ONE (12:31)
[2024-03-24] MEDS: HYDROmorphone 1 MG/ML 1 ML SYRINGE IVP STA (13:21)
[2024-03-24] MEDS ORDERED: NALOXONE 0.4 MG/ML 1 ML VIAL IV PRN (14:42)
[2024-03-24] MEDS: ONDANSETRON 4 MG/2 ML VIAL IVP PRN (18:30)
[2024-03-24 18:37] LABS: Anisocytosis Slight; HCT 33.2 % (34.0-46.0); HGB 10.6 gm/dL (11.4-16.0); MCH 27.9 pg (25.0-35.0); MCHC 31.9 g/dL (31.0-37.0); MCV 87.3 fL (80.0-100.0); Mean Platelet Volume 14.3; Platelet Count 102 k/uL (150-450); RBC 3.81 m/uL (3.80-5.40); RDW 16.9 % (11.5-15.5); WBC 27.5 k/uL (3.8-10.6)
--- NOTE | 2024-03-24 20:49 | P.GSCN ---
History of Present Illness Consult date: 03/24/24 Reason for Consult: Hematuria Requesting physician: Moy Holley History of present illness: The patient is an 83-year-old white female who presents with vaginal bleeding versus gross hematuria. She has experienced pelvic discomfort for several weeks, as well as some dysuria. She has had no prior similar episodes. She denies any history of urolithiasis. She has been treated for occasional UTIs. Review of Systems - Constitutional Denies weight loss - Genitourinary Genitourinary: Reports as per HPI Past Medical History Past Medical History: No Reported History Additional Past Medical History / Comment(s): back pain History of Any Multi-Drug Resistant Organisms: None Reported Past Surgical History: Appendectomy, Hysterectomy, Tubal Ligation Past Psychological History: No Psychological Hx Reported Smoking Status: Former smoker Past Alcohol Use History: None Reported Past Drug Use History: None Reported - Past Family History Mother Family Medical History: No Reported History Medications and Allergies Home Medications Medication Instructions Recorded Confirmed Type Ibuprofen [Motrin Ib] 400 mg PO TID 03/24/24 03/24/24 History Multivit-Min/FA/Lycopen/Lutein 1 tab PO DAILY 03/24/24 03/24/24 History [Centrum Silver Tablet] Allergies Allergy/AdvReac Type Severity Reaction Status Date / Time No Known Allergies Allergy Verified 03/24/24 11:30 Surgical - Exam Vital Signs Temp Pulse Resp BP Pulse Ox 98.3 F 111 H 18 134/73 98 03/24/24 07:22 03/24/24 07:22 03/24/24 07:22 03/24/24 07:22 03/24/24 07:22 - General well developed, well nourished, no distress - Neck no masses, trachea midline - Respiratory normal respiratory effort - Abdomen Soft, non-distended, no palpable mass. Mild suprapubic tenderness, no guarding or rebound. - Psychiatric oriented to time, oriented to person, oriented to place, speech is normal, memory intact Results - Labs 03/24/24 18:30 03/24/24 08:18 Abnormal Lab Results - Last 24 Hours (Table) 03/24/24 03/24/24 03/24/24 Range/Units 08:18 08:18 08:18 WBC 13.2 H (3.8-10.6) k/uL Hgb (11.4-16.0) gm/dL Hct (34.0-46.0) % RDW 16.5 H (11.5-15.5) % Plt Count 120 L (150-450) k/uL Neutrophils # 9.8 H (1.3-7.7) k/uL Monocytes # 1.5 H (0-1.0) k/uL BUN 20 H (7-17) mg/dL Creatinine 0.42 L (0.52-1.04) mg/dL Urine Appearance Bloody H (Clear) Urine RBC >182 H (0-5) /hpf Urine WBC >182 H (0-5) /hpf 03/24/24 03/24/24 Range/Units 11:41 18:30 WBC 17.1 H 27.5 H (3.8-10.6) k/uL Hgb 11.2 L 10.6 L (11.4-16.0) gm/dL Hct 33.2 L (34.0-46.0) % RDW 16.8 H 16.9 H (11.5-15.5) % Plt Count 111 L 102 L (150-450) k/uL Neutrophils # (1.3-7.7) k/uL Monocytes # (0-1.0) k/uL BUN (7-17) mg/dL Creatinine (0.52-1.04) mg/dL Urine Appearance (Clear) Urine RBC (0-5) /hpf Urine WBC (0-5) /hpf Diabetes panel 03/24/24 Range/Units 08:18 Sodium 140 (137-145) mmol/L Potassium 4.1 (3.5-5.1) mmol/L Chloride 106 (98-107) mmol/L Carbon Dioxide 29 (22-30) mmol/L BUN 20 H (7-17) mg/dL Creatinine 0.42 L (0.52-1.04) mg/dL Glucose 94 (74-99) mg/dL Calcium 9.1 (8.4-10.2) mg/dL AST 21 (14-36) U/L ALT 13 (4-34) U/L Alkaline Phosphatase 59 (38-126) U/L Total Protein 8.0 (6.3-8.2) g/dL Albumin 4.0 (3.5-5.0) g/dL Calcium panel 10/22/24 Range/Units 08:18 Calcium 9.1 (8.4-10.2) mg/dL Albumin 4.0 (3.5-5.0) g/dL Pituitary panel 03/24/24 Range/Units 08:18 Sodium 140 (137-145) mmol/L Potassium 4.1 (3.5-5.1) mmol/L Chloride 106 (98-107) mmol/L Carbon Dioxide 29 (22-30) mmol/L BUN 20 H (7-17) mg/dL Creatinine 0.42 L (0.52-1.04) mg/dL Glucose 94 (74-99) mg/dL Calcium 9.1 (8.4-10.2) mg/dL Adrenal panel 03/24/24 Range/Units 08:18 Sodium 140 (137-145) mmol/L Potassium 4.1 (3.5-5.1) mmol/L Chloride 106 (98-107) mmol/L Carbon Dioxide 29 (22-30) mmol/L BUN 20 H (7-17) mg/dL Creatinine 0.42 L (0.52-1.04) mg/dL Glucose 94 (74-99) mg/dL Calcium 9.1 (8.4-10.2) mg/dL Total Bilirubin 0.5 (0.2-1.3) mg/dL AST 21 (14-36) U/L ALT 13 (4-34) U/L Alkaline Phosphatase 59 (38-126) U/L Total Protein 8.0 (6.3-8.2) g/dL Albumin 4.0 (3.5-5.0) g/dL - Imaging CT scan - abdomen: report reviewed, image reviewed Assessment and Plan (1) Gross hematuria Current Visit: Yes Status: Acute Code(s): R31.0 - GROSS HEMATURIA SNOMED Code(s): 357209946 Plan: I have reviewed the patient's CT scan. The kidneys appear normal, other than a left simple renal cyst. However, multiple densities are seen within the bladder, likely representing bladder tumors and/or urinary clots. I discussed this in detail with the patient and her son. I have recommended that she undergo cystoscopy, evacuation of clot, and transurethral resection of bladder tumor(s). The rationale for this approach was discussed, and it was made clear to them that bladder cancer is suspected. Potential risks were also reviewed, which include anesthesia, bladder perforation, and persistent bleeding. They wish to proceed, and I am hopeful that this can be performed tomorrow. Time with Patient: Greater than 30
--- NOTE | 2024-03-24 21:22 | P.HPIM ---
History of Present Illness H&P Date: 03/24/24 HISTORY OF PRESENT ILLNESS: 83-year-old Has not been seen in our office in January 28, 2020 for the first time to get established and had several complaint at the time including lower back pain with severe degenerative disc disease treated medically only with no intervention required after seen Ortho/soil fertility specialist few times and decided medical management only. She had lower abdominal pain with recurrent symptoms from visit to the emergency department treated on January 24, 2024 found to have finding on a CAT scan consistent with a tumor growth was found and patient was encouraged to follow-up with urology did not do at the time. Also she had uterine prolapse has been seeing [employer] and has a pessary been maintained and taking care of by EVP CHIEF EXPLORATION OFFICER Fay Cary and Dr. Orantes every 3 to 4 months and apparently the chuck wagon cook seen early despite she was not a candidate and has higher risk for intervention so recommended to continue the pessary Managing it the way this. She was having vaginal bleeding on and off earlier but not anymore lately. She presented today to the emergency department for vaginal versus hematuria she developed to have lower abdominal pain and discomfort recommend January increased bleeding when she went to the bathroom could not describe it clearly Pan catheter was instructed and she was more hematuria at the time. CAT scan of the abdomen and pelvis was performed as well after running and ultrasound findings were consistent with hyperdense lesion measure up to 10 cm within the urinary bladder corresponding to ultrasound this may represent blood products and/or neoplasm direct visualization was recommended also had moderate size hiatal hernia on a CAT scan. Her laboratory value shows WBC 13.2 climb up to 27.5 by the time she is seen her hemoglobin dropped down to gram from textile machinery instructor to few hours before she is down to 10.6. Electrolyte panel and chemistry did not show any acute kidney injury or liver abnormality her urine was very dark red and very bloody. She had Pan catheter for "Irrigation and contact urology to be seen probably be scheduled for cystoscopy with urology. REVIEW OF SYSTEMS: CONSTITUTIONAL: Well-developed no acute respiratory distress. EYES: No icterus sclerae, no conjunctivitis. EARS, NOSE, MOUTH, THROAT, and FACE: No sore throat, lymphadenopathy, carotid bruits or deformity. RESPIRATORY: No SOB cough or wheezes. CARDIOVASCULAR: No CP, Palpitation, PND, Orthopnea, or angina. GASTROINTESTINAL: No Abd pain, Nausea or vomiting, no Diarrhea or constipation, No GI Bleed, no distention or masses. GENITOURINARY: Positive hematuria with pain and discomfort irritation urinary tract twice also continue to have vaginal irritation discomfort yeast infection and had pessary for prolapse. INTEGUMENT/BREAST: Negative for any muscular injury with mild osteoarthritis.. HEMATOLOGIC/LYMPHATIC: Negative for bleed or purpura. MUSCULOSKELTAL: Generalized muscle and joint pain and overall lower back pain as well. NEURLOGICAL: No LOC, Sz or syncope, blurred vision dizziness or abnormality.. BEHAVIORAL/PSYCH: Negative. ENDOCRINE: Negative. SOCIAL HiSTORY: She is lives alone with family help, does not drink alcohol, she is a neck smoker used to smoke 1 to 2 pack a day for over 30 years. FAMILY HISTORY: She has 4 children one of her kids from cancer, the other 3 are all living and well PHYSICAL EXAMINATION: General Appearance: Alert, cooperative, no distress, appears stated age. Neck HEENT: Supple, no lymphadenopathy, no thyroid enlargement, no carotid bruits. Lungs: Clear to auscultation without crackles or wheezes no rhonchi, no deformity. Chest Wall: Decreased expansion with deep inspiration no tenderness and no deformity was found on exam, no costochondral pain or discomfort. Heart: Regular rate and rhythm, S1, S2 positive S3 no major murmur. Back: Slight curvature with mild tenderness in the lower lumbar area. Abdomen: Soft, non-tender, bowel sounds active all four quadrants, slight discomfort and tenderness in lower abdominal region area. Extremities: Extremities normal, atraumatic, no cyanosis or edema. Pulses: 2+ and symmetric. Skin: Skin color, texture, tugor normal, no rashes or lesions. Neurologic: Alert oriented x3 cranial nerves II through XII intact, positive generalized weakness with abnormal balance and gait. ASSESSMENT AND PLAN: _Recurrent abdominal pain most likely secondary to large urinary or bladder mass and hematuria try to correct underlying disease continue irrigation, hydration, and pain meds for now. _Large mass in the bladder area measured 10 cm causing hematuria and worsening symptoms urology consultation for cystoscopy and possible intervention. _Acute blood loss anemia: With significant bleeding had lost 2 g of blood continue to watch for any worsening symptoms repeat CBC in the morning as well. _Mild leukocytosis: Not a clear etiology no sign of infection is found at this point but the white blood cell climbing up probably will be longoria to have patient on 1 g of Rocephin he will very clear there is no infection probably be a safer plan at this point procalcitonin can be done as well to assure or exclude the possibility of infection. _Intractable lower back pain: Has been on pain management with hydrocodone and tramadol along with muscle relaxer only. _Uterine prolapse: Has been seeing [employer]IE[employer] EXPLORATION OFFICER and has pessary and has been on conservative management only. _GI prophylaxis: Patient will be on pantoprazole 40 mg daily. _DVT prophylaxis: Knee-high SHERRY hose and early mobilization no anticoagulation or subcu heparin or Lovenox for now especially with the bleed. CODE STATUS: Full code. Admit patient to the inpatient service for more than 2 night stay. Past Medical History Past Medical History: No Reported History Additional Past Medical History / Comment(s): back pain History of Any Multi-Drug Resistant Organisms: None Reported Past Surgical History: Appendectomy, Hysterectomy, Tubal Ligation Past Psychological History: No Psychological Hx Reported Smoking Status: Former smoker Past Alcohol Use History: None Reported Past Drug Use History: None Reported - Past Family History Mother Family Medical History: No Reported History Medications and Allergies Home Medications Medication Instructions Recorded Confirmed Type Ibuprofen [Motrin Ib] 400 mg PO TID 03/24/24 03/24/24 History Multivit-Min/FA/Lycopen/Lutein 1 tab PO DAILY 03/24/24 03/24/24 History [Centrum Silver Tablet] Allergies Allergy/AdvReac Type Severity Reaction Status Date / Time No Known Allergies Allergy Verified 03/24/24 11:30 Physical Exam Vitals: Vital Signs Temp Pulse Resp BP Pulse Ox 03/24/24 14:49 122 H 20 92 L 03/24/24 13:59 128 H 24 133/86 92 L 03/24/24 13:15 122 H 18 133/86 98 03/24/24 12:27 118 H 18 117/75 94 L 03/24/24 10:00 97.7 F 104 H 20 143/77 97 03/24/24 08:34 98 24 112/67 94 L 03/24/24 07:22 98.3 F 111 H 18 134/73 98 Intake and Output 03/24/24 03/24/24 03/24/24 06:59 14:59 22:59 Output Total 250 Balance -250 Output: Urine 250 Uretheral (Pan) 250 Other: Weight 46.266 kg Results CBC & Chem 7: 03/24/24 18:30 03/24/24 08:18 Labs: Abnormal Lab Results - Last 24 Hours (Table) 03/24/24 03/24/24 03/24/24 Range/Units 08:18 08:18 08:18 WBC 13.2 H (3.8-10.6) k/uL Hgb (11.4-16.0) gm/dL RDW 16.5 H (11.5-15.5) % Plt Count 120 L (150-450) k/uL Neutrophils # 9.8 H (1.3-7.7) k/uL Monocytes # 1.5 H (0-1.0) k/uL BUN 20 H (7-17) mg/dL Creatinine 0.42 L (0.52-1.04) mg/dL Urine Appearance Bloody H (Clear) Urine RBC >182 H (0-5) /hpf Urine WBC >182 H (0-5) /hpf 03/24/24 Range/Units 11:41 WBC 17.1 H (3.8-10.6) k/uL Hgb 11.2 L (11.4-16.0) gm/dL RDW 16.8 H (11.5-15.5) % Plt Count 111 L (150-450) k/uL Neutrophils # (1.3-7.7) k/uL Monocytes # (0-1.0) k/uL BUN (7-17) mg/dL Creatinine (0.52-1.04) mg/dL Urine Appearance (Clear) Urine RBC (0-5) /hpf Urine WBC (0-5) /hpf
[2024-03-24] MEDS: MORPHINE SULFATE 4 MG/ML SYRINGE IV PRN (23:53)
[2024-03-24] MEDS: HYDROcodone/APAP 5-325MG 1 EACH TAB PO PRN (23:54)
[2024-03-25] MEDS: SODIUM CHLORIDE 0.9% 500 ML 500 ML IV STA (05:38)
[2024-03-25] MEDS: SODIUM CHLORIDE 0.9% 1,000 ML IV STA (06:13)
[2024-03-25] MEDS: MULTIVITAMINS, THERA 1 EACH TAB PO SCH (08:17)
[2024-03-25] MEDS: PANTOPRAZOLE 40 MG/10 ML VIAL IV SCH (08:18)
--- NOTE | 2024-03-25 10:45 | CDI ---
Documentation Clarification Form Date: 03/25/2024 From: Fiona Chow RN CCDS Phone: [phone] Admit Date: 03/24/2024 02:53:00 PM Patient Name: Lin Durant Visit Number: [id number] Discharge Date: ATTENTION: The Clinical Documentation Specialists (CDI) and [facility] Coding Staff appreciate your assistance in clarifying documentation. Please respond to the clarification below the line at the bottom and electronically sign. The CDI & [facility] Coding staff will review the response and follow-up if needed. Please note: Queries are made part of the Legal Health Record. If you have any questions, please contact the author of this message via ITS. Doctor/Provider: Moy Holley MD: Patient has a documented BMI of 18.7 on 03/24. Additional clarification is requested. History/Risk Factors: 83-year-old female who presents with gross hematuria Clinical Indicators: 03/24 Patients weight is 46.266kg Patients height is 5ft 2in Calculated BMI is 18.7 03/24 Total Protein 8.0 Treatments: Regular diet then NPO for surgery Please clarify, is there is an additional diagnosis that is clinically appropriate for this patient? [ xx ] Underweight [ ] No additional diagnosis/not clinically significant [ ] Other, please specify [ ] Unable to determine MTDD
[2024-03-25 10:52] LABS: HCT 29.1 % (37.2-46.3); HGB 9.2 g/dL (12.0-15.0); MCH 27.1 pg (27.0-32.0); MCHC 31.6 g/dL (32.0-37.0); MCV 85.8 FL (80.0-97.0); NRBC Per 100 WBC 0 X 10*3/uL (0.00-0.01); Platelet Count 98 X 10*3/uL (140-440); RBC 3.39 X 10*6/uL (4.10-5.20); RDW 17.9 % (11.5-14.5); WBC 34.55 X 10*3/uL (4.50-10.00)
[2024-03-25 10:59] LABS: ALT 9 U/L (8-44); AST 12 U/L (13-35); Albumin 3.4 g/dL (3.8-4.9); Albumin/Globulin Ratio 1.06 Ratio (1.60-3.17); Alkaline Phosphatase 55 U/L (41-126); Blood Urea Nitrogen 19.6 mg/dL (9.0-27.0); Calcium 8.8 mg/dL (8.7-10.3); Carbon Dioxide 23.3 mmol/L (21.6-31.8); Chloride 108 mmol/L (96-109); Globulin 3.2 g/dL (1.6-3.3); Glucose 97 mg/dL (70-110); Potassium 4.4 mmol/L (3.5-5.5); Sodium 141 mmol/L (135-145); Total Bilirubin 0.3 mg/dL (0.3-1.2); Total Protein 6.6 g/dL (6.2-8.2)
[2024-03-25] MEDS: IV FLUID CONTINUATION 1,000 ML IV ONE (14:34)
[2024-03-25] MEDS ORDERED: NEOSTIGMINE 1 MG/ML 10 ML VIAL ONE (15:09)
[2024-03-25] MEDS ORDERED: SUCCINYLCHOLINE CHLORIDE 200 MG/10 ML VIAL IV ONE (15:09)
[2024-03-25] MEDS ORDERED: LIDOCAINE 2% (PF) 20 MG/ML 5 ML VIAL ONE (15:09)
[2024-03-25] MEDS ORDERED: fentaNYL (PF) 50 MCG/ML 2 ML AMP ONE (15:09)
[2024-03-25] MEDS ORDERED: ePHEDrine 50 MG/ML 1 ML VIAL ONE (15:09)
[2024-03-25] MEDS ORDERED: GLYCOPYRROLATE 0.2 MG/ML 2 ML VIAL ONE (15:09)
[2024-03-25] MEDS ORDERED: ROCURONIUM 10 MG/ML (5 ML VIAL) IV ONE (15:09)
[2024-03-25] MEDS ORDERED: PHENYLEPHRINE 10 MG/ML VIAL ONE (15:09)
[2024-03-25] MEDS ORDERED: PROPOFOL 10 MG/ML 20 ML VIAL IV ONE (15:09)
[2024-03-25] MEDS: SODIUM CHLORIDE 0.9% 100 ML with ceFAZolin 2,000 MG IV ONE (15:11)
[2024-03-25] MEDS: SODIUM CHLORIDE 0.9% 100 ML with ceFAZolin 1,000 MG IV ONE (15:11)
[2024-03-25] MEDS: LACTATED RINGERS 1,000 ML IV ONE (16:07)
--- NOTE | 2024-03-25 16:38 | P.OP ---
Date of Procedure: 03/25/24 Preoperative Diagnosis: Urinary clot retention Postoperative Diagnosis: Same Procedure(s) Performed: Cystoscopy, evacuation of clots, TUR-BT (medium) Anesthesia: CASSANDRAA Surgeon: Jesús Marquez Estimated Blood Loss (ml): 5 IV fluids (ml): 900 Condition: stable Disposition: PACU Indications for Procedure: The patient is an 83-year-old white female who presented with gross hematuria. CT scan showed normal upper tracts, but the bladder was distended with hyperdense lesions measuring up to 10 cm in diameter. Operative Findings: Several 100 cc of clot removed from the bladder. No active bleeding. Posterior bladder wall irregularity, resected. Description of Procedure: The patient was taken in the operating room and placed in the dorsal lithotomy position, with her legs supported in Luis Antonio stirrups. The external genitalia was prepped and draped sterilely. The 25-Hungarian ACMI resectoscope sheath was introduced into the bladder. The bladder was full of clot. The I-Shake evacuator was used to remove several hundred cc of clot from the bladder. The bladder was then inspected. Both ureteral orifices were of normal anatomic location and configuration, and clear urine effluxed from both. The entire bladder was examined, revealing no papillary tumors or foreign bodies. The posterior bladder wall was somewhat irregular just cephalad to the trigone. It was unclear whether this might represent superficial urothelial carcinoma or simply catheter cystitis. Using the bipolar cutting loop, the irregular mucosa was resected down to the superficial muscle. Excellent hemostasis was attained. Tissue fragments were removed from the bladder and sent to pathology, though the tissue fragments were small and some were lost in suction. Subtle mucosal irregularity was noted cephalad to the left ureteral orifice, and this was fulgurated. The resectoscope was removed, and a 20-Hungarian Pan catheter was inserted. The return was clear. The patient tolerated the procedure well and was taken to the recovery room in stable condition.
--- NOTE | 2024-03-25 20:37 | P.PN ---
Subjective Progress Note Date: 03/25/24 HISTORY OF PRESENT ILLNESS: 83-year-old Has not been seen in our office in January 28, 2020 for the first time to get established and had several complaint at the time including lower back pain with severe degenerative disc disease treated medically only with no intervention required after seen Ortho/urban gardening specialist few times and decided medical management only. She had lower abdominal pain with recurrent symptoms from visit to the emergency department treated on January 24, 2024 found to have finding on a CAT scan consistent with a tumor growth was found and patient was encouraged to follow-up with urology did not do at the time. Also she had uterine prolapse has been seeing [employer] and has a pessary been maintained and taking care of by [employer] Fay Cary and Dr. Orantes every 3 to 4 months and apparently the railway traction line worker seen early despite she was not a candidate and has higher risk for intervention so recommended to continue the pessary Managing it the way this. She was having vaginal bleeding on and off earlier but not anymore lately. She presented today to the emergency department for vaginal versus hematuria she developed to have lower abdominal pain and discomfort recommend January increased bleeding when she went to the bathroom could not describe it clearly Pan catheter was instructed and she was more hematuria at the time. CAT scan of the abdomen and pelvis was performed as well after running and ultrasound findings were consistent with hyperdense lesion measure up to 10 cm within the urinary bladder corresponding to ultrasound this may represent blood products and/or neoplasm direct visualization was recommended also had moderate size hiatal hernia on a CAT scan. Her laboratory value shows WBC 13.2 climb up to 27.5 by the time she is seen her hemoglobin dropped down to gram from tugboat dispatcher to few hours before she is down to 10.6. Electrolyte panel and chemistry did not show any acute kidney injury or liver abnormality her urine was very dark red and very bloody. She had Pan catheter for "Irrigation and contact urology to be seen probably be scheduled for cystoscopy with urology. 03/25/2024: Continue to watch recurrent hematuria initial drop in hemoglobin almost 2 g no further is not requiring blood transfusion, review the CAT scan with urology patient be going for cystoscopy to find out the growth in the bladder area which is large on the CAT scan to see if this is bladder cancer or just a blood clot based on the results we will decide on further management in the meanwhile continue to watch for the bleed, continue to irrigate catheter and patient will be in the hospital at least for the next 24 hours. CBC and procalcitonin still pending we decided last night not to do any IV antibiotic the patient is not showing any signs of infection at this point. REVIEW OF SYSTEMS: CONSTITUTIONAL: Well-developed no acute respiratory distress. EYES: No icterus sclerae, no conjunctivitis. EARS, NOSE, MOUTH, THROAT, and FACE: No sore throat, lymphadenopathy, carotid bruits or deformity. RESPIRATORY: No SOB cough or wheezes. CARDIOVASCULAR: No CP, Palpitation, PND, Orthopnea, or angina. GASTROINTESTINAL: No Abd pain, Nausea or vomiting, no Diarrhea or constipation, No GI Bleed, no distention or masses. GENITOURINARY: Positive hematuria with pain and discomfort irritation urinary tract twice also continue to have vaginal irritation discomfort yeast infection and had pessary for prolapse. INTEGUMENT/BREAST: Negative for any muscular injury with mild osteoarthritis.. HEMATOLOGIC/LYMPHATIC: Negative for bleed or purpura. MUSCULOSKELTAL: Generalized muscle and joint pain and overall lower back pain as well. NEURLOGICAL: No LOC, Sz or syncope, blurred vision dizziness or abnormality.. BEHAVIORAL/PSYCH: Negative. ENDOCRINE: Negative. PHYSICAL EXAMINATION: General Appearance: Alert, cooperative, no distress, appears stated age. Neck HEENT: Supple, no lymphadenopathy, no thyroid enlargement, no carotid bruits. Lungs: Clear to auscultation without crackles or wheezes no rhonchi, no deformity. Chest Wall: Decreased expansion with deep inspiration no tenderness and no deformity was found on exam, no costochondral pain or discomfort. Heart: Regular rate and rhythm, S1, S2 positive S3 no major murmur. Back: Slight curvature with mild tenderness in the lower lumbar area. Abdomen: Soft, non-tender, bowel sounds active all four quadrants, slight discomfort and tenderness in lower abdominal region area. Extremities: Extremities normal, atraumatic, no cyanosis or edema. Pulses: 2+ and symmetric. Skin: Skin color, texture, tugor normal, no rashes or lesions. Neurologic: Alert oriented x3 cranial nerves II through XII intact, positive generalized weakness with abnormal balance and gait. ASSESSMENT AND PLAN: _Recurrent abdominal pain most likely secondary to large urinary or bladder mass continue to have hematuria was seen urology and going for cystoscopy today. _Large mass in the bladder area measured 10 cm causing hematuria and worsening symptoms urology consultation for cystoscopy possible biopsy today, continue to watch hemoglobin to ensure no further drop requiring transfusion. _Acute leukocytosis with possible leukemoid reaction not a clear etiology so far no sign of infection not clear if this is leukemia based might require further management or not. Repeat CBC again next continue to go up will consult hematology. _Acute blood loss anemia: With significant bleeding had lost 2 g of blood continue to watch for any worsening symptoms repeat CBC in the morning as well. _Mild leukocytosis: No signs of infection waiting for CBC this morning and procalcitonin patient is not having any fever or chills the only significant was a slight change in WBC from presentation to the ER care late last night. _Intractable lower back pain: Has been on pain management with hydrocodone and tramadol along with muscle relaxer only. _Uterine prolapse: Has been seeing [employer] and has pessary and has been on conservative management only. _GI prophylaxis: Patient will be on pantoprazole 40 mg daily. Discussion: Patient going for Cystoscopy and possible biopsy versus clot irrigation based on the result will decide on further management, still waiting for procalcitonin to decide whether patient require any IV antibiotic for urinary tract infection or not. Objective - Vital Signs Vital signs: Vital Signs Temp 98.1 F 03/24/24 23:54 Pulse 125 H 03/25/24 05:02 Resp 18 03/25/24 05:02 BP 89/63 03/25/24 05:02 Pulse Ox 95 03/25/24 05:02 FiO2 Intake & Output 03/24/24 03/24/24 03/25/24 06:59 18:59 06:59 Output Total 650 Balance -650 Weight 46.266 kg Output: Urine 650 Uretheral (Pan) 650 - Labs CBC & Chem 7: 03/25/24 06:41 03/25/24 06:41 Labs: Abnormal Lab Results - Last 24 Hours (Table) 03/24/24 03/24/24 03/24/24 Range/Units 08:18 08:18 08:18 WBC 13.2 H (3.8-10.6) k/uL Hgb (11.4-16.0) gm/dL Hct (34.0-46.0) % RDW 16.5 H (11.5-15.5) % Plt Count 120 L (150-450) k/uL Neutrophils # 9.8 H (1.3-7.7) k/uL Monocytes # 1.5 H (0-1.0) k/uL BUN 20 H (7-17) mg/dL Creatinine 0.42 L (0.52-1.04) mg/dL Urine Appearance Bloody H (Clear) Urine RBC >182 H (0-5) /hpf Urine WBC >182 H (0-5) /hpf 03/24/24 03/24/24 Range/Units 11:41 18:30 WBC 17.1 H 27.5 H (3.8-10.6) k/uL Hgb 11.2 L 10.6 L (11.4-16.0) gm/dL Hct 33.2 L (34.0-46.0) % RDW 16.8 H 16.9 H (11.5-15.5) % Plt Count 111 L 102 L (150-450) k/uL Neutrophils # (1.3-7.7) k/uL Monocytes # (0-1.0) k/uL BUN (7-17) mg/dL Creatinine (0.52-1.04) mg/dL Urine Appearance (Clear) Urine RBC (0-5) /hpf Urine WBC (0-5) /hpf
[2024-03-26 08:00] LABS: Anisocytosis Slight; HCT 25.4 % (34.0-46.0); MCH 28.2 pg (25.0-35.0); MCHC 32.4 g/dL (31.0-37.0); MCV 86.9 fL (80.0-100.0); Mean Platelet Volume 15.7; RBC 2.92 m/uL (3.80-5.40); RDW 16.8 % (11.5-15.5); WBC 31.7 k/uL (3.8-10.6)
[2024-03-26 08:08] LABS: ALT 8 U/L (4-34); AST 15 U/L (14-36); African American GFR (CKD) >90 (>60 ml/min/1.73 sqM); Albumin 2.9 g/dL (3.5-5.0); Albumin/Globulin Ratio 0.9; Alkaline Phosphatase 51 U/L (38-126); Anion Gap 3 mmol/L; Blood Urea Nitrogen 16 mg/dL (7-17); Calcium 8.6 mg/dL (8.4-10.2); Carbon Dioxide 29 mmol/L (22-30); Chloride 105 mmol/L (98-107); Globulin 3.2 g/dL; Glucose 75 mg/dL (74-99); Non-African American GFR(CKD) >90 (>60 ml/min/1.73 sqM); Potassium 4.1 mmol/L (3.5-5.1); Sodium 137 mmol/L (137-145); Total Bilirubin 0.6 mg/dL (0.2-1.3); Total Protein 6.1 g/dL (6.3-8.2)
--- NOTE | 2024-03-26 08:09 | P.PN ---
Subjective Progress Note Date: 03/26/24 HISTORY OF PRESENT ILLNESS: 83-year-old Has not been seen in our office in January 28, 2020 for the first time to get established and had several complaint at the time including lower back pain with severe degenerative disc disease treated medically only with no intervention required after seen Ortho/family development specialist few times and decided medical management only. She had lower abdominal pain with recurrent symptoms from visit to the emergency department treated on January 24, 2024 found to have finding on a CAT scan consistent with a tumor growth was found and patient was encouraged to follow-up with urology did not do at the time. Also she had uterine prolapse has been seeing AUDIT SENIOR ASSOCIATE and has a pessary been maintained and taking care of by AUDIT SENIOR ASSOCIATE Fay Cary and Dr. Orantes every 3 to 4 months and apparently the aeroplane pilot seen early despite she was not a candidate and has higher risk for intervention so recommended to continue the pessary Managing it the way this. She was having vaginal bleeding on and off earlier but not anymore lately. She presented today to the emergency department for vaginal versus hematuria she developed to have lower abdominal pain and discomfort recommend January increased bleeding when she went to the bathroom could not describe it clearly Pan catheter was instructed and she was more hematuria at the time. CAT scan of the abdomen and pelvis was performed as well after running and ultrasound findings were consistent with hyperdense lesion measure up to 10 cm within the urinary bladder corresponding to ultrasound this may represent blood products and/or neoplasm direct visualization was recommended also had moderate size hiatal hernia on a CAT scan. Her laboratory value shows WBC 13.2 climb up to 27.5 by the time she is seen her hemoglobin dropped down to gram from sr. manager marketing to few hours before she is down to 10.6. Electrolyte panel and chemistry did not show any acute kidney injury or liver abnormality her urine was very dark red and very bloody. She had Pan catheter for "Irrigation and contact urology to be seen probably be scheduled for cystoscopy with urology. 03/25/2024: Continue to watch recurrent hematuria initial drop in hemoglobin almost 2 g no further is not requiring blood transfusion, review the CAT scan with urology patient be going for cystoscopy to find out the growth in the bladder area which is large on the CAT scan to see if this is bladder cancer or just a blood clot based on the results we will decide on further management in the meanwhile continue to watch for the bleed, continue to irrigate catheter and patient will be in the hospital at least for the next 24 hours. CBC and procalcitonin still pending we decided last night not to do any IV antibiotic the patient is not showing any signs of infection at this point. 03/26/2024: Patient ended up going for cystoscopy with Dr. Anthony apparently had so many blood clot in the bladder area the posterior wall of the bladder was somehow irregular and not normal that can represent superficial urothelial carcinoma or simple catheter cystitis. Biopsy was taking from it patient has 20 [place] catheter with irrigation and the entire bladder was irrigated to clear continue irrigation of the catheter on will have probably Pan catheter remain for the next few days Patient will initiate PT OT while waiting for biopsy biopsy might not come back resolved till early next week patient again can be will be able to be discharged probably in the next 24 hours to possible rehab center or home with home care. The patient has leukemoid reaction and severe leukocytosis not clear etiology will wait till lab results from today to decide whether she needs to see hematology or not. REVIEW OF SYSTEMS: CONSTITUTIONAL: Well-developed no acute respiratory distress. EYES: No icterus sclerae, no conjunctivitis. EARS, NOSE, MOUTH, THROAT, and FACE: No sore throat, lymphadenopathy, carotid bruits or deformity. RESPIRATORY: No SOB cough or wheezes. CARDIOVASCULAR: No CP, Palpitation, PND, Orthopnea, or angina. GASTROINTESTINAL: No Abd pain, Nausea or vomiting, no Diarrhea or constipation, No GI Bleed, no distention or masses. GENITOURINARY: Positive hematuria with pain and discomfort irritation urinary tract twice also continue to have vaginal irritation discomfort yeast infection and had pessary for prolapse. INTEGUMENT/BREAST: Negative for any muscular injury with mild osteoarthritis.. HEMATOLOGIC/LYMPHATIC: Negative for bleed or purpura. MUSCULOSKELTAL: Generalized muscle and joint pain and overall lower back pain as well. NEURLOGICAL: No LOC, Sz or syncope, blurred vision dizziness or abnormality.. BEHAVIORAL/PSYCH: Negative. ENDOCRINE: Negative. PHYSICAL EXAMINATION: General Appearance: Alert, cooperative, no distress, appears stated age. Neck HEENT: Supple, no lymphadenopathy, no thyroid enlargement, no carotid bruits. Lungs: Clear to auscultation without crackles or wheezes no rhonchi, no deformity. Chest Wall: Decreased expansion with deep inspiration no tenderness and no deformity was found on exam, no costochondral pain or discomfort. Heart: Regular rate and rhythm, S1, S2 positive S3 no major murmur. Back: Slight curvature with mild tenderness in the lower lumbar area. Abdomen: Soft, non-tender, bowel sounds active all four quadrants, slight discomfort and tenderness in lower abdominal region area. Extremities: Extremities normal, atraumatic, no cyanosis or edema. Pulses: 2+ and symmetric. Skin: Skin color, texture, tugor normal, no rashes or lesions. Neurologic: Alert oriented x3 cranial nerves II through XII intact, positive generalized weakness with abnormal balance and gait. ASSESSMENT AND PLAN: _Recurrent abdominal pain most likely secondary to large urinary or bladder mass continue to have hematuria was seen urology and had cystoscopy with biopsy from the bladder and irrigation of many blood clot has been doing well since. _Large mass in the bladder area seen on the CAT scan with cystoscopy mostly clot with slight irregularity of the posterior wall of the bladder biopsy was taking for possible superficial cancer of the bladder. Result is to follow. _Acute leukocytosis with possible leukemoid reaction not a clear etiology so far no sign of infection not clear if this is leukemia based might require further management or not. Repeat CBC again next continue to go up will consult hematology. _Acute blood loss anemia: With significant bleeding had lost 2 g of blood continue to watch for any worsening symptoms repeat CBC in the morning as well. _Mild leukocytosis: No signs of infection waiting for CBC this morning and procalcitonin patient is not having any fever or chills the only significant was a slight change in WBC from presentation to the ER care late last night. _Intractable lower back pain: Has been on pain management with hydrocodone and tramadol along with muscle relaxer only. _Uterine prolapse: Has been seeing AUDIT SENIOR ASSOCIATE and has pessary and has been on conservative management only. _GI prophylaxis: Patient will be on pantoprazole 40 mg daily. Discussion: Cystoscopy was done biopsy was taking patient hematuria slightly bit better but continued to have severe leukocytosis has been slightly bit worse waiting for the results today and probably for hematology consultation to see if there is leukocytosis/leukemoid or reason to believe this could be an early leukemia. Objective - Vital Signs Vital signs: Vital Signs Temp 100.2 F H 03/26/24 01:36 Pulse 119 H 03/26/24 01:36 Resp 19 03/26/24 01:36 BP 96/52 03/26/24 01:36 Pulse Ox 93 L 03/26/24 01:36 FiO2 Intake & Output 03/25/24 03/25/24 03/26/24 06:59 18:59 06:59 Intake Total 1200 Output Total 280 450 Balance 920 -450 Weight 46.266 kg Intake: IV 1200 Output: Urine 275 450 Estimated Blood Loss 5 Other: Voiding Method Indwelling Catheter - Labs CBC & Chem 7: 03/25/24 06:41 03/25/24 06:41 Labs: Abnormal Lab Results - Last 24 Hours (Table) 03/25/24 03/25/24 Range/Units 06:41 06:41 WBC 34.55 H (4.50-10.00) X 10*3/uL RBC 3.39 L (4.10-5.20) X 10*6/uL Hgb 9.2 L (12.0-15.0) g/dL Hct 29.1 L (37.2-46.3) % MCHC 31.6 L (32.0-37.0) g/dL RDW 17.9 H (11.5-14.5) % Plt Count 98 L (140-440) X 10*3/uL Creatinine 0.5 L (0.6-1.5) mg/dL BUN/Creatinine Ratio 39.20 H (12.00-20.00) Ratio AST 12 L (13-35) U/L Albumin 3.4 L (3.8-4.9) g/dL Albumin/Globulin Ratio 1.06 L (1.60-3.17) Ratio Microbiology - Last 24 Hours (Table) 03/24/24 08:18 Urine Culture - Preliminary Urine,Voided Gram Neg Bacilli
[2024-03-26 08:26] LABS: HGB 8.2 gm/dL (11.4-16.0)
--- NOTE | 2024-03-26 08:30 | P.PN ---
Subjective Progress Note Date: 03/26/24 Principal diagnosis: Urinary clot retention The patient presented with gross hematuria, and CT scan showed multiple bladder densities. She underwent cystoscopy with evacuation of clot on March 25, 2024. There was no active bleeding. Subtle mucosal irregularity was noted and was resected. The patient is currently comfortable, and the Pan catheter is draining clear yellow urine. Objective - Vital Signs Vital signs: Vital Signs Temp 98.2 F 03/26/24 06:57 Pulse 100 03/26/24 06:57 Resp 18 03/26/24 06:57 BP 92/50 03/26/24 06:57 Pulse Ox 94 L 03/26/24 06:57 FiO2 Intake & Output 03/25/24 03/26/24 03/26/24 18:59 06:59 18:59 Intake Total 1200 Output Total 280 450 Balance 920 -450 Weight 46.266 kg Intake: IV 1200 Output: Urine 275 450 Estimated Blood Loss 5 Other: Voiding Method Indwelling Catheter - Constitutional General appearance: Present: average body habitus, cooperative, no acute distress - Psychiatric Psychiatric: Present: A&O x's 3 - Labs CBC & Chem 7: 03/26/24 06:37 03/26/24 06:37 Labs: Abnormal Lab Results - Last 24 Hours (Table) 03/25/24 03/25/24 03/26/24 Range/Units 06:41 06:41 06:37 WBC 34.55 H (4.50-10.00) X 10*3/uL RBC 3.39 L (4.10-5.20) X 10*6/uL Hgb 9.2 L (12.0-15.0) g/dL Hct 29.1 L (37.2-46.3) % MCHC 31.6 L (32.0-37.0) g/dL RDW 17.9 H (11.5-14.5) % Plt Count 98 L (140-440) X 10*3/uL Creatinine 0.5 L 0.39 L (0.6-1.5) mg/dL BUN/Creatinine Ratio 39.20 H (12.00-20.00) Ratio AST 12 L (13-35) U/L Total Protein 6.1 L (6.3-8.2) g/dL Albumin 3.4 L 2.9 L (3.8-4.9) g/dL Albumin/Globulin Ratio 1.06 L (1.60-3.17) Ratio Microbiology - Last 24 Hours (Table) 03/24/24 08:18 Urine Culture - Preliminary Urine,Voided Gram Neg Bacilli Assessment and Plan (1) Gross hematuria Current Visit: Yes Status: Acute Code(s): R31.0 - GROSS HEMATURIA SNOMED Code(s): 895208033 Plan: - Continue Pan catheter. - Await pathology report. - The cause of the patient's leukocytosis is indeterminate, but may be due to a UTI as the preliminary urine culture shows greater than 100,000 gram-negative bacilli. I have thus prescribed Rocephin, pending the final culture result.
[2024-03-26 08:57] LABS: Platelet Count 76 k/uL (150-450)
[2024-03-26 11:26] VITALS: BMI 18.6
--- NOTE | 2024-03-26 15:58 | P.CONS ---
History of Present Illness - Reason for Consult Consult date: 03/26/24 Neutrophilic leukocytosis, blood loss anemia, thrombocytopenia Requesting physician: Moy Holley - Chief Complaint hematuria - History of Present Illness Ms. Durant is a 83 yo female we have been asked to see re: neutrophilic leukocytosis, she is also noted be anemic and thrombocytopenic. From documentation in this EMR, pt has had hematuria since at least Jan of this year. She was supposed to f/u with Urology because of concerns for a bladder tumor. She was admitted for abd pain and has now been seen inpt by Urology. Dr. Marquez has performed cystoscopy and TURBT, no gross tumor seen but abnormal tissue was biopsied. Pt doing well with resolution of hematuria. Anemia is new this visit, thrombocytopenia noted since 2020, progressive. Neutrophilic leukocytosis s tarted in 2021, significant progression this visit. Pt with son at bedside, no report of blood disorders, personal Hx of cancer, unknown if any fevers prior to admit (100.2F ax recorded today), no unintentional wt. loss, appetite is fair, no N,V, abd pain, SOB, new cough, she has a Hx of smoking but quit in the last few years. No acute changes in bowels. Past Medical History Past Medical History: No Reported History Additional Past Medical History / Comment(s): back pain History of Any Multi-Drug Resistant Organisms: None Reported Past Surgical History: Appendectomy, Hysterectomy, Tubal Ligation Past Psychological History: No Psychological Hx Reported Smoking Status: Former smoker Past Alcohol Use History: None Reported Past Drug Use History: None Reported - Past Family History Mother Family Medical History: No Reported History Medications and Allergies Home Medications Medication Instructions Recorded Confirmed Type Ibuprofen [Motrin Ib] 400 mg PO TID 03/24/24 03/24/24 History Multivit-Min/FA/Lycopen/Lutein 1 tab PO DAILY 03/24/24 03/24/24 History [Centrum Silver Tablet] Allergies Allergy/AdvReac Type Severity Reaction Status Date / Time No Known Allergies Allergy Verified 03/24/24 11:30 Physical Exam Vitals: Vital Signs Temp Pulse Pulse Resp BP BP Pulse Ox 03/26/24 06:57 98.2 F 100 18 92/50 94 L 03/26/24 01:36 100.2 F H 119 H 19 96/52 93 L 03/25/24 19:15 98.1 F 107 H 16 100/61 99 03/25/24 17:57 97.9 F 104 H 17 99/58 99 03/25/24 17:15 110 H 16 108/56 97 03/25/24 17:00 113 H 12 111/55 98 03/25/24 16:43 120 H 14 115/55 100 03/25/24 16:28 98.8 F 120 H 14 115/56 100 03/25/24 14:37 97.9 F 102 H 18 115/51 100 03/25/24 13:57 100 18 97/49 99 03/25/24 12:03 106 H 16 97/55 98 03/25/24 09:22 107/56 Intake and Output 03/25/24 03/26/24 03/26/24 22:59 06:59 14:59 Intake Total 1200 Output Total 280 450 Balance 920 -450 Intake: IV 1200 Output: Urine 275 450 Estimated Blood Loss 5 Other: Voiding Method Indwelling Catheter Weight 46.266 kg - Constitutional General appearance: average body habitus, cooperative, no acute distress - EENT Eyes: anicteric sclerae, EOMI ENT: hearing grossly normal - Neck Neck: no lymphadenopathy - Respiratory Respiratory: bilateral: CTA - Cardiovascular Rhythm: regular Heart sounds: normal: S1, S2 Abnormal Heart Sounds: no systolic murmur, no diastolic murmur, no rub, no S3 Gallop, no S4 Gallop, no click, no other leg Peripheral Edema: bilateral: None - Gastrointestinal General gastrointestinal: no absent bowel sounds, no decreased bowel sounds, no distended, no hepatomegaly, no hyperactive bowel sounds, normal bowel sounds, no organomegaly, no rigid, no scaphoid, soft, no splenomegaly, no tenderness, no umbilical hernia, no ventral hernia - Integumentary Integumentary: pale - Neurologic Neurologic: CNII-XII intact - Musculoskeletal Musculoskeletal: generalized weakness - Psychiatric Psychiatric: A&O x's 3, appropriate affect Results CBC & Chem 7: 03/26/24 06:37 03/26/24 06:37 Labs: Abnormal Lab Results - Last 24 Hours (Table) 03/25/24 03/25/24 03/26/24 Range/Units 06:41 06:41 06:37 WBC 34.55 H 31.7 H (4.50-10.00) X 10*3/uL RBC 3.39 L 2.92 L (4.10-5.20) X 10*6/uL Hgb 9.2 L 8.2 L D (12.0-15.0) g/dL Hct 29.1 L 25.4 L (37.2-46.3) % MCHC 31.6 L (32.0-37.0) g/dL RDW 17.9 H 16.8 H (11.5-14.5) % Plt Count 98 L 76 L (140-440) X 10*3/uL Creatinine 0.5 L (0.6-1.5) mg/dL BUN/Creatinine Ratio 39.20 H (12.00-20.00) Ratio AST 12 L (13-35) U/L Total Protein (6.3-8.2) g/dL Albumin 3.4 L (3.8-4.9) g/dL Albumin/Globulin Ratio 1.06 L (1.60-3.17) Ratio 03/26/24 Range/Units 06:37 WBC (4.50-10.00) X 10*3/uL RBC (4.10-5.20) X 10*6/uL Hgb (12.0-15.0) g/dL Hct (37.2-46.3) % MCHC (32.0-37.0) g/dL RDW (11.5-14.5) % Plt Count (140-440) X 10*3/uL Creatinine 0.39 L (0.6-1.5) mg/dL BUN/Creatinine Ratio (12.00-20.00) Ratio AST (13-35) U/L Total Protein 6.1 L (6.3-8.2) g/dL Albumin 2.9 L (3.8-4.9) g/dL Albumin/Globulin Ratio (1.60-3.17) Ratio Microbiology - Last 24 Hours (Table) 03/24/24 08:18 Urine Culture - Preliminary Urine,Voided Gram Neg Bacilli CT scan - abdomen: report reviewed CT scan - pelvis: report reviewed Assessment and Plan (1) Bicytopenia Current Visit: Yes Status: Acute Priority: High Code(s): D75.89 - OTHER SPECIFIED DISEASES OF BLOOD AND BLOOD-FORMING ORGANS SNOMED Code(s): 36619750 (2) Neutrophilic leukocytosis Current Visit: Yes Status: Acute Priority: High Code(s): D72.828 - OTHER ELEVATED WHITE BLOOD CELL COUNT SNOMED Code(s): 904665606 (3) Gross hematuria Current Visit: Yes Status: Acute Priority: High Code(s): R31.0 - GROSS HEMATURIA SNOMED Code(s): 982252176 Plan: Bicytopenia and neutrophilic leukocytosis -Anemia, 2/2 recent acute hematuria and maybe a degree of underlying myeloproliferative disorder. Pt has not yet required transfusion. CBC ordered daily. Iron studies ordered. Transfuse for a Hgb < 7 or if sympotmatic -Thrombocytopenia, noted since 2020 in this EMR, progressive. Possibly a degree of underlying myeloproliferative disorder exacerbated by acute illness. May also be a component of consumption, especially with persistent hematuria over the last 2 months. Plt are adequate for DVT prophylaxis once felt ok to start post procedure. Transfuse for plt <10,000 or if symptomatic -Paraproteinemia work up ordered -Neutrophilic leukocytosis, likely 2/2 to prolonged bleeding and urine infection. Peripheral smear ordered to assess for left shift. -Nothing acute from Hem standpoint at this time. Further recommendations to follow based in results of work up Hematuria, Bladder dysplasia -Urology has seen and treated pt-significant improvement in hematuria -Path pending Doctor attests: I performed a history and physical examination of this patient, developed impression and plan of care. Discussed with dictator. I agree with dictators note, documented as a scribe.
[2024-03-26 16:35] LABS: Protein, Total 6.3 g/dL (6.2-8.2)
[2024-03-26 17:08] LABS: % Iron Saturation 3.96 (12.00-45.00); Iron 8 UG/DL (50-170); Rheumatoid Factor, Qnt <15 IU/mL (0-15); Total Iron Binding Capacity 202 UG/DL (228-460)
--- NOTE | 2024-03-27 09:30 | P.PN ---
Subjective Progress Note Date: 03/27/24 Principal diagnosis: Urinary clot retention The patient presented with gross hematuria, and CT scan showed multiple bladder densities. She underwent cystoscopy with evacuation of clot on March 25, 2024. There was no active bleeding. Subtle mucosal irregularity was noted and was resected. The patient is currently comfortable, and the Pan catheter is draining clear yellow urine. Objective - Vital Signs Vital signs: Vital Signs Temp 97.5 F L 03/27/24 07:05 Pulse 114 H 03/27/24 07:05 Resp 19 03/27/24 07:05 BP 105/56 03/27/24 07:05 Pulse Ox 88 L 03/27/24 07:05 FiO2 Intake & Output 03/26/24 03/27/24 03/27/24 18:59 06:59 18:59 Output Total 850 800 Balance -850 -800 Weight 46.266 kg Output: Urine 850 800 Other: Voiding Method Indwelling Catheter Indwelling Catheter - Constitutional General appearance: Present: average body habitus, cooperative, no acute distress - Psychiatric Psychiatric: Present: A&O x's 3 - Labs CBC & Chem 7: 03/26/24 06:37 03/26/24 06:37 Labs: Abnormal Lab Results - Last 24 Hours (Table) 03/26/24 03/26/24 03/26/24 Range/Units 06:37 06:37 10:13 WBC 31.7 H (3.8-10.6) k/uL RBC 2.92 L (3.80-5.40) m/uL Hgb 8.2 L D (11.4-16.0) gm/dL Hct 25.4 L (34.0-46.0) % RDW 16.8 H (11.5-15.5) % Plt Count 76 L (150-450) k/uL Creatinine 0.39 L (0.52-1.04) mg/dL Iron 8 L (50-170) UG/DL TIBC 202 L (228-460) UG/DL % Saturation 3.96 L (12.00-45.00) Transferrin 144.0 L (204.0-354.0) mg/dL Total Protein 6.1 L (6.3-8.2) g/dL Albumin 2.9 L (3.5-5.0) g/dL Vitamin B12 1028.0 H (200.0-944.0) pg/mL Microbiology - Last 24 Hours (Table) 03/24/24 08:18 Urine Culture - Final Urine,Voided Escherichia coli Assessment and Plan Assessment: Urine culture shows an E. coli UTI, sensitive to Rocephin. (1) Gross hematuria Current Visit: Yes Status: Acute Priority: High Code(s): R31.0 - GROSS HEMATURIA SNOMED Code(s): 486552650 Plan: - Continue Rocephin. - Continue Pan catheter. - Await pathology report.
[2024-03-27 11:24] LABS: Free Lambda Lt Chain Qnt, Seru 1.95 mg/dL (0.57-2.63)
[2024-03-27 13:32] LABS: Basophils # (A) 0.08 X 10*3/uL (0.00-0.10); Basophils % (A) 0.3 %; Eosinophils # (A) 0.02 X 10*3/uL (0.04-0.35); Eosinophils % (A) 0.1 %; HCT 23.8 % (37.2-46.3); HGB 7.6 g/dL (12.0-15.0); Hypochromasia (M) 2+; Immature Platelet Fraction 34.2 % (1.1-6.1); Lymphocytes # (A) 1.27 X 10*3/uL (0.90-5.00); Lymphocytes % (A) 5.4 %; MCH 26.9 pg (27.0-32.0); MCHC 31.9 g/dL (32.0-37.0); MCV 84.1 FL (80.0-97.0); Monocytes # (A) 4.47 X 10*3/uL (0.20-1.00); Monocytes % (A) 18.8 %; NRBC Per 100 WBC 0 X 10*3/uL (0.00-0.01); Neutrophils # (A) 17.67 X 10*3/uL (1.80-7.70); Neutrophils % (A) 74.5 %; Platelet Count 77 X 10*3/uL (140-440); RBC 2.83 X 10*6/uL (4.10-5.20); RDW 17.5 % (11.5-14.5); WBC 23.72 X 10*3/uL (4.50-10.00)
[2024-03-27] MEDS: SODIUM FERRIC GLUCONAT-SUCROSE 125 MG in SODIUM CHLORIDE 0.9% 100 ML IVPB SCH (16:25)
--- NOTE | 2024-03-27 17:04 | P.PN ---
Subjective Progress Note Date: 03/27/24 No acute events, reporting improvement in symptoms at todays visit. Hgb 7.6, WBC 23.7, plt 77 Objective - Vital Signs Vital signs: Vital Signs Temp 97.5 F L 03/27/24 07:05 Pulse 114 H 03/27/24 09:45 Resp 19 03/27/24 07:05 BP 105/56 03/27/24 07:05 Pulse Ox 89 L 03/27/24 09:22 FiO2 Intake & Output 03/26/24 03/27/24 03/27/24 18:59 06:59 18:59 Output Total 850 800 Balance -850 -800 Weight 46.266 kg Output: Urine 850 800 Other: Voiding Method Indwelling Catheter Indwelling Catheter Indwelling Catheter - Constitutional General appearance: Present: no acute distress - EENT Eyes: Present: anicteric sclerae, EOMI ENT: Present: hearing grossly normal - Respiratory Details: breathing is even and unlabored - Cardiovascular Details: skin warm and dry - Gastrointestinal General gastrointestinal: Present: soft. Absent: tenderness - Integumentary Integumentary: Absent: cyanotic, jaundiced - Psychiatric Psychiatric: Present: A&O x's 3 - Labs CBC & Chem 7: 03/27/24 03:17 03/26/24 06:37 Labs: Abnormal Lab Results - Last 24 Hours (Table) 03/26/24 03/26/24 03/27/24 Range/Units 10:13 10:13 03:17 WBC 23.72 H (4.50-10.00) X 10*3/uL RBC 2.83 L (4.10-5.20) X 10*6/uL Hgb 7.6 L (12.0-15.0) g/dL Hct 23.8 L (37.2-46.3) % MCH 26.9 L (27.0-32.0) pg MCHC 31.9 L (32.0-37.0) g/dL RDW 17.5 H (11.5-14.5) % Plt Count 77 L (140-440) X 10*3/uL Immature Gran # 0.21 H (0.00-0.04) X 10*3/uL Neutrophils # 17.67 H (1.80-7.70) X 10*3/uL Monocytes # 4.47 H (0.20-1.00) X 10*3/uL Eosinophils # 0.02 L (0.04-0.35) X 10*3/uL Immature Plt Fraction 34.2 H (1.1-6.1) % Hypochromasia (manual) 2+ A Iron 8 L (50-170) UG/DL TIBC 202 L (228-460) UG/DL % Saturation 3.96 L (12.00-45.00) Transferrin 144.0 L (204.0-354.0) mg/dL Vitamin B12 1028.0 H (200.0-944.0) pg/mL Free [place] LC, Quant 5.00 H (0.33-1.94) mg/dL Microbiology - Last 24 Hours (Table) 03/24/24 08:18 Urine Culture - Final Urine,Voided Escherichia coli Assessment and Plan (1) Bicytopenia Current Visit: Yes Status: Acute Priority: High Code(s): D75.89 - OTHER SPECIFIED DISEASES OF BLOOD AND BLOOD-FORMING ORGANS SNOMED Code(s): 69845316 (2) Bladder mass Current Visit: Yes Status: Acute Priority: Medium Code(s): N32.89 - OTHER SPECIFIED DISORDERS OF BLADDER SNOMED Code(s): 029618735 (3) Gross hematuria Current Visit: Yes Status: Acute Priority: High Code(s): R31.0 - GROSS HEMATURIA SNOMED Code(s): 328916210 Plan: Bicytopenia and neutrophilic leukocytosis -Anemia, 2/2 recent acute hematuria and maybe a degree of underlying myeloproliferative disorder. Pt has not yet required transfusion. Iron studies ordered. Transfuse for a Hgb < 7 or if sympotmatic -Thrombocytopenia, noted since 2020 in this EMR, progressive. Possibly a degree of underlying myeloproliferative disorder exacerbated by acute illness. May also be a component of consumption, especially with persistent hematuria over the last 2 months. Plt are adequate for DVT prophylaxis once felt ok to start post procedure. Transfuse for plt <10,000 or if symptomatic -Paraproteinemia work up ordered, labs pending -Anemia labs consistent with iron def anemia, parenteral iron ordered -Neutrophilic leukocytosis, likely 2/2 to prolonged bleeding and urine infection. Peripheral smear showing left shift, consistent with infection/inflammation. Leukocytosis improving -Continue to monitor CBC Hematuria, Bladder dysplasia -Urology has seen and treated pt-significant improvement in hematuria -Path pending Doctor attests: I performed a history and physical examination of this patient, developed impression and plan of care. Discussed with dictator. I agree with dictators note, documented as a scribe.
[2024-03-27] MEDS: CALCIUM CARBONATE 500 MG CHEWABLE PO PRN (19:59)
--- NOTE | 2024-03-27 21:21 | P.PN ---
Subjective Progress Note Date: 03/27/24 83-year-old presented today to the emergency department for vaginal versus hematuria she developed to have lower abdominal pain and discomfort recommend January increased bleeding when she went to the bathroom could not describe it clearly Pan catheter was instructed and she was more hematuria at the time. CAT scan of the abdomen and pelvis was performed as well after running and ultrasound findings were consistent with hyperdense lesion measure up to 10 cm within the urinary bladder corresponding to ultrasound this may represent blood products and/or neoplasm direct visualization was recommended also had moderate size hiatal hernia on a CAT scan. Her laboratory value shows WBC 13.2 climb up to 27.5 by the time she is seen her hemoglobin dropped down to gram from product strategy director to few hours before she is down to 10.6. Electrolyte panel and chemistry did not show any acute kidney injury or liver abnormality her urine was very dark red and very bloody. She had Pan catheter for "Irrigation and contact urology to be seen probably be scheduled for cystoscopy with urology. Objective - Vital Signs Vital signs: Vital Signs Temp 97.5 F L 03/27/24 07:05 Pulse 114 H 03/27/24 09:45 Resp 19 03/27/24 07:05 BP 105/56 03/27/24 07:05 Pulse Ox 89 L 03/27/24 09:22 FiO2 Intake & Output 03/26/24 03/27/24 03/27/24 18:59 06:59 18:59 Output Total 850 800 Balance -850 -800 Weight 46.266 kg Output: Urine 850 800 Other: Voiding Method Indwelling Catheter Indwelling Catheter Indwelling Catheter - Exam General Appearance: Alert, cooperative, no distress, appears stated age. Neck HEENT: Supple, no lymphadenopathy, no thyroid enlargement, no carotid bruits. Lungs: Clear to auscultation without crackles or wheezes no rhonchi, no deform ity. Chest Wall: Decreased expansion with deep inspiration no tenderness and no deformity was found on exam, no costochondral pain or discomfort. Heart: Regular rate and rhythm, S1, S2 positive S3 no major murmur. Back: Slight curvature with mild tenderness in the lower lumbar area. Abdomen: Soft, non-tender, bowel sounds active all four quadrants, slight discomfort and tenderness in lower abdominal region area. Extremities: Extremities normal, atraumatic, no cyanosis or edema. Pulses: 2+ and symmetric. - Labs CBC & Chem 7: 03/27/24 03:17 03/26/24 06:37 Labs: Abnormal Lab Results - Last 24 Hours (Table) 03/26/24 03/26/24 Range/Units 10:13 10:13 Iron 8 L (50-170) UG/DL TIBC 202 L (228-460) UG/DL % Saturation 3.96 L (12.00-45.00) Transferrin 144.0 L (204.0-354.0) mg/dL Vitamin B12 1028.0 H (200.0-944.0) pg/mL Free [place] LC, Quant 5.00 H (0.33-1.94) mg/dL Microbiology - Last 24 Hours (Table) 03/24/24 08:18 Urine Culture - Final Urine,Voided Escherichia coli Assessment and Plan Assessment: 1. Urinary bladder mass continue to have hematuria was seen urology and had cystoscopy with biopsy from the bladder and irrigation of many blood clot has been doing well since. -- Large mass in the bladder area seen on the CAT scan with cystoscopy mostly clot with slight irregularity of the posterior wall of the bladder biopsy was taking for possible superficial cancer of the bladder. Result is to follow. 2. Leukocytosis/UTI; urine culture grows greater than 100,000 E. coli; final culture and sensitivities pending 3. Acute blood loss anemia: With significant bleeding had lost 2 g of blood continue to watch for any worsening symptoms repeat CBC in the morning as well. 4. Intractable lower back pain: Has been on pain management with hydrocodone and tramadol along with muscle relaxer only. 5. Uterine prolapse: Has been seeing [facility] [employer] and has pessary and has been on conservative management only. 6. GI prophylaxis: Patient will be on pantoprazole 40 mg daily. DVT prophylaxis; SCDs only given hematuria CODE STATUS; full code
[2024-03-28] MEDS: ACETAMINOPHEN TAB 325 MG TAB PO PRN (06:08)
[2024-03-28 09:32] LABS: Blood Urea Nitrogen 11.7 mg/dL (9.0-27.0); Calcium 8.4 mg/dL (8.7-10.3); Chloride 103 mmol/L (96-109); Glucose 94 mg/dL (70-110); Potassium 3.7 mmol/L (3.5-5.5); Sodium 139 mmol/L (135-145)
--- NOTE | 2024-03-28 10:31 | P.PN ---
Subjective Progress Note Date: 03/28/24 Principal diagnosis: Urinary clot retention The patient presented with gross hematuria, and CT scan showed multiple bladder densities. She underwent cystoscopy with evacuation of clot on March 25, 2024. There was no active bleeding. Subtle mucosal irregularity was noted and was resected. Urine culture has shown an E. coli UTI, for which she is currently receiving Rocephin. The patient is currently comfortable, and the Pan catheter is draining clear yellow urine. Objective - Vital Signs Vital signs: Vital Signs Temp 97.6 F 03/28/24 01:50 Pulse 88 03/28/24 01:50 Resp 16 03/28/24 01:50 BP 103/54 03/28/24 01:50 Pulse Ox 92 L 03/28/24 01:50 FiO2 Intake & Output 03/27/24 03/28/24 03/28/24 18:59 06:59 18:59 Output Total 1000 Balance -1000 Output: Urine 1000 Other: Voiding Method Indwelling Catheter Indwelling Catheter # Bowel Movements 1 - Constitutional General appearance: Present: average body habitus, cooperative, no acute distress - Psychiatric Psychiatric: Present: A&O x's 3 - Labs CBC & Chem 7: 03/27/24 03:17 03/28/24 02:56 Labs: Abnormal Lab Results - Last 24 Hours (Table) 03/26/24 03/27/24 Range/Units 10:13 03:17 WBC 23.72 H (4.50-10.00) X 10*3/uL RBC 2.83 L (4.10-5.20) X 10*6/uL Hgb 7.6 L (12.0-15.0) g/dL Hct 23.8 L (37.2-46.3) % MCH 26.9 L (27.0-32.0) pg MCHC 31.9 L (32.0-37.0) g/dL RDW 17.5 H (11.5-14.5) % Plt Count 77 L (140-440) X 10*3/uL Immature Gran # 0.21 H (0.00-0.04) X 10*3/uL Neutrophils # 17.67 H (1.80-7.70) X 10*3/uL Monocytes # 4.47 H (0.20-1.00) X 10*3/uL Eosinophils # 0.02 L (0.04-0.35) X 10*3/uL Immature Plt Fraction 34.2 H (1.1-6.1) % Hypochromasia (manual) 2+ A Free [place] LC, Quant 5.00 H (0.33-1.94) mg/dL Assessment and Plan (1) Gross hematuria Current Visit: Yes Status: Acute Priority: High Code(s): R31.0 - GROSS HEMATURIA SNOMED Code(s): 021517169 Plan: - Continue Rocephin. - Remove Pan catheter. - Await pathology report.
[2024-03-28 10:36] LABS: Basophils # (A) 0.07 X 10*3/uL (0.00-0.10); Basophils % (A) 0.3 %; Eosinophils % (A) 0.5 %; HCT 24.2 % (37.2-46.3); HGB 7.9 g/dL (12.0-15.0); Immature Platelet Fraction 34.2 % (1.1-6.1); Lymphocytes # (A) 1.26 X 10*3/uL (0.90-5.00); Lymphocytes % (A) 5.7 %; MCH 27.5 pg (27.0-32.0); MCHC 32.6 g/dL (32.0-37.0); MCV 84.3 FL (80.0-97.0); Monocytes # (A) 4.48 X 10*3/uL (0.20-1.00); Monocytes % (A) 20.2 %; NRBC Per 100 WBC 0 X 10*3/uL (0.00-0.01); Neutrophils # (A) 16.04 X 10*3/uL (1.80-7.70); Neutrophils % (A) 72.4 %; Platelet Count 83 X 10*3/uL (140-440); RBC 2.87 X 10*6/uL (4.10-5.20); RDW 17.3 % (11.5-14.5); WBC 22.16 X 10*3/uL (4.50-10.00)
[2024-03-28 11:54] LABS: Band Neutrophils % 1 %; Lymphocytes # (M) 2.22 k/uL (1.0-4.8); Monocytes # (M) 4.44 k/uL (0-1.0); Neutrophils % (M) 79 %; Nucleated Red Blood Cells 0 /100 WBC (0-0); Total Cells Counted 200
[2024-03-29 10:47] LABS: Basophils # (A) 0.07 X 10*3/uL (0.00-0.10); Basophils % (A) 0.3 %; Eosinophils # (A) 0.02 X 10*3/uL (0.04-0.35); Eosinophils % (A) 0.1 %; HGB 8.1 g/dL (12.0-15.0); Lymphocytes # (A) 1.67 X 10*3/uL (0.90-5.00); Lymphocytes % (A) 8.1 %; MCH 26.8 pg (27.0-32.0); MCHC 32.4 g/dL (32.0-37.0); MCV 82.8 FL (80.0-97.0); Monocytes # (A) 3.23 X 10*3/uL (0.20-1.00); Monocytes % (A) 15.7 %; NRBC Per 100 WBC 0 X 10*3/uL (0.00-0.01); Neutrophils # (A) 15.45 X 10*3/uL (1.80-7.70); Platelet Count 106 X 10*3/uL (140-440); RBC 3.02 X 10*6/uL (4.10-5.20); RDW 17.3 % (11.5-14.5)
--- NOTE | 2024-03-29 15:57 | P.PN ---
Subjective Progress Note Date: 03/28/24 83-year-old presented today to the emergency department for vaginal versus hematuria she developed to have lower abdominal pain and discomfort recommend January increased bleeding when she went to the bathroom could not describe it clearly Pan catheter was instructed and she was more hematuria at the time. CAT scan of the abdomen and pelvis was performed as well after running and ultrasound findings were consistent with hyperdense lesion measure up to 10 cm within the urinary bladder corresponding to ultrasound this may represent blood products and/or neoplasm direct visualization was recommended also had moderate size hiatal hernia on a CAT scan. Her laboratory value shows WBC 13.2 climb up to 27.5 by the time she is seen her hemoglobin dropped down to gram from bar catcher to few hours before she is down to 10.6. Electrolyte panel and chemistry did not show any acute kidney injury or liver abnormality her urine was very dark red and very bloody. She had Pan catheter for "Irrigation and contact urology to be seen probably be scheduled for cystoscopy with urology. 03/28/2024 Patient is seen and evaluated with family at bedside; admitted with gross hemat uria with CT scan showing multiple bladder densities; patient underwent cystoscopy with evacuation of clots on 03/25/2024 with biopsy of the bladder mass which is still pending Vital signs are reviewed temperature 97.6, pulse 88, respirations 16 and blood pressure 103/54 Patient being followed by urology; remains on IV Rocephin; urine culture reveals E. coli with final sensitivity pending Blood work reveals a WBC of 22.1, hemoglobin of 7.9 and platelet count of 83 Patient has been evaluated by hematology; recommending to continue monitoring CBC with no active intervention at this time Continue with current IV antibiotics with plans to adjust once final culture and sensitivities available Objective - Vital Signs Vital signs: Vital Signs Temp 98.8 F 03/28/24 07:11 Pulse 102 H 03/28/24 07:11 Resp 18 03/28/24 07:11 BP 103/64 03/28/24 07:11 Pulse Ox 91 L 03/28/24 07:11 FiO2 Intake & Output 03/27/24 03/28/24 03/28/24 18:59 06:59 18:59 Output Total 1000 Balance -1000 Output: Urine 1000 Other: Voiding Method Indwelling Catheter Indwelling Catheter # Bowel Movements 1 - Exam General Appearance: Alert, cooperative, no distress, appears stated age. Neck HEENT: Supple, no lymphadenopathy, no thyroid enlargement, no carotid bruits. Lungs: Clear to auscultation without crackles or wheezes no rhonchi, no deformity. Chest Wall: Decreased expansion with deep inspiration no tenderness and no deformity was found on exam, no costochondral pain or discomfort. Heart: Regular rate and rhythm, S1, S2 positive S3 no major murmur. Back: Slight curvature with mild tenderness in the lower lumbar area. Abdomen: Soft, non-tender, bowel sounds active all four quadrants, slight discomfort and tenderness in lower abdominal region area. Extremities: Extremities normal, atraumatic, no cyanosis or edema. Pulses: 2+ and symmetric. - Labs CBC & Chem 7: 03/29/24 06:11 03/28/24 02:56 Labs: Abnormal Lab Results - Last 24 Hours (Table) 03/26/24 03/27/24 03/28/24 Range/Units 10:13 03:17 02:56 WBC 23.72 H 22.16 H (4.50-10.00) X 10*3/uL RBC 2.83 L 2.87 L (4.10-5.20) X 10*6/uL Hgb 7.6 L 7.9 L (12.0-15.0) g/dL Hct 23.8 L 24.2 L (37.2-46.3) % MCH 26.9 L (27.0-32.0) pg MCHC 31.9 L (32.0-37.0) g/dL RDW 17.5 H 17.3 H (11.5-14.5) % Plt Count 77 L 83 L (140-440) X 10*3/uL Immature Gran # 0.21 H 0.21 H (0.00-0.04) X 10*3/uL Neutrophils # 17.67 H 16.04 H (1.80-7.70) X 10*3/uL Monocytes # 4.47 H 4.48 H (0.20-1.00) X 10*3/uL Eosinophils # 0.02 L (0.04-0.35) X 10*3/uL Immature Plt Fraction 34.2 H 34.2 H (1.1-6.1) % Hypochromasia (manual) 2+ A Creatinine (0.6-1.5) mg/dL BUN/Creatinine Ratio (12.00-20.00) Ratio Calcium (8.7-10.3) mg/dL Free [place] LC, Quant 5.00 H (0.33-1.94) mg/dL 03/28/24 Range/Units 02:56 WBC (4.50-10.00) X 10*3/uL RBC (4.10-5.20) X 10*6/uL Hgb (12.0-15.0) g/dL Hct (37.2-46.3) % MCH (27.0-32.0) pg MCHC (32.0-37.0) g/dL RDW (11.5-14.5) % Plt Count (140-440) X 10*3/uL Immature Gran # (0.00-0.04) X 10*3/uL Neutrophils # (1.80-7.70) X 10*3/uL Monocytes # (0.20-1.00) X 10*3/uL Eosinophils # (0.04-0.35) X 10*3/uL Immature Plt Fraction (1.1-6.1) % Hypochromasia (manual) Creatinine 0.3 L (0.6-1.5) mg/dL BUN/Creatinine Ratio 39.00 H (12.00-20.00) Ratio Calcium 8.4 L (8.7-10.3) mg/dL Free [place] LC, Quant (0.33-1.94) mg/dL Assessment and Plan Assessment: 1. Urinary bladder mass continue to have hematuria was seen urology and had cystoscopy with biopsy from the bladder and irrigation of many blood clot has been doing well since. -- Large mass in the bladder area seen on the CAT scan with cystoscopy mostly clot with slight irregularity of the posterior wall of the bladder biopsy was taking for possible superficial cancer of the bladder. Result is to follow. 2. Leukocytosis/UTI; urine culture grows greater than 100,000 E. coli; final culture and sensitivities pending 3. Acute blood loss anemia: With significant bleeding had lost 2 g of blood continue to watch for any worsening symptoms repeat CBC in the morning as well. 4. Intractable lower back pain: Has been on pain management with hydrocodone and tramadol along with muscle relaxer only. 5. Uterine prolapse: Has been seeing [facility] [employer] and has pessary and has been on conservative management only. 6. GI prophylaxis: Patient will be on pantoprazole 40 mg daily. DVT prophylaxis; SCDs only given hematuria CODE STATUS; full code
--- NOTE | 2024-03-29 15:59 | P.PN ---
Subjective Progress Note Date: 03/29/24 83-year-old presented today to the emergency department for vaginal versus hematuria she developed to have lower abdominal pain and discomfort recommend January increased bleeding when she went to the bathroom could not describe it clearly Pan catheter was instructed and she was more hematuria at the time. CAT scan of the abdomen and pelvis was performed as well after running and ultrasound findings were consistent with hyperdense lesion measure up to 10 cm within the urinary bladder corresponding to ultrasound this may represent blood products and/or neoplasm direct visualization was recommended also had moderate size hiatal hernia on a CAT scan. Her laboratory value shows WBC 13.2 climb up to 27.5 by the time she is seen her hemoglobin dropped down to gram from dry house tender to few hours before she is down to 10.6. Electrolyte panel and chemistry did not show any acute kidney injury or liver abnormality her urine was very dark red and very bloody. She had Pan catheter for "Irrigation and contact urology to be seen probably be scheduled for cystoscopy with urology. 03/28/2024 Patient is seen and evaluated with family at bedside; admitted with gross hemat uria with CT scan showing multiple bladder densities; patient underwent cystoscopy with evacuation of clots on 03/25/2024 with biopsy of the bladder mass which is still pending Vital signs are reviewed temperature 97.6, pulse 88, respirations 16 and blood pressure 103/54 Patient being followed by urology; remains on IV Rocephin; urine culture reveals E. coli with final sensitivity pending Blood work reveals a WBC of 22.1, hemoglobin of 7.9 and platelet count of 83 Patient has been evaluated by hematology; recommending to continue monitoring CBC with no active intervention at this time Continue with current IV antibiotics with plans to adjust once final culture and sensitivities available 03/29/2024 Patient is sitting up in bedside chair; denies any specific complaints; further episodes of hematuria; Pan catheter has been discontinued Vital signs are reviewed and remained stable Lab continue white blood count persistently elevated at 20.6 despite being on IV antibiotics; final urine culture and sensitivities still pending - we will continue with IV Rocephin; procalcitonin -Consult ID for further recommendations Objective - Vital Signs Vital signs: Vital Signs Temp 98.1 F 03/29/24 07:09 Pulse 115 H 03/29/24 07:09 Resp 16 03/29/24 07:09 BP 130/71 03/29/24 07:09 Pulse Ox 96 03/29/24 07:09 FiO2 Intake & Output 03/28/24 03/29/24 03/29/24 18:59 06:59 18:59 Output Total 1050 Balance -1050 Output: Urine 1050 Other: Voiding Method Indwelling Catheter Toilet # Voids 3 1 # Bowel Movements 1 - Exam General Appearance: Alert, cooperative, no distress, appears stated age. Neck HEENT: Supple, no lymphadenopathy, no thyroid enlargement, no carotid bruits. Lungs: Clear to auscultation without crackles or wheezes no rhonchi, no deformity. Chest Wall: Decreased expansion with deep inspiration no tenderness and no deformity was found on exam, no costochondral pain or discomfort. Heart: Regular rate and rhythm, S1, S2 positive S3 no major murmur. Back: Slight curvature with mild tenderness in the lower lumbar area. Abdomen: Soft, non-tender, bowel sounds active all four quadrants, slight discomfort and tenderness in lower abdominal region area. Extremities: Extremities normal, atraumatic, no cyanosis or edema. Pulses: 2+ and symmetric. - Labs CBC & Chem 7: 03/29/24 06:11 03/28/24 02:56 Labs: Abnormal Lab Results - Last 24 Hours (Table) 03/26/24 03/29/24 Range/Units 06:37 06:11 WBC 31.7 H 20.60 H (3.8-10.6) k/uL RBC 2.92 L 3.02 L (3.80-5.40) m/uL Hgb 8.2 L D 8.1 L (11.4-16.0) gm/dL Hct 25.4 L 25.0 L (34.0-46.0) % MCH 26.8 L (27.0-32.0) pg RDW 16.8 H 17.3 H (11.5-15.5) % Plt Count 76 L 106 L (150-450) k/uL Immature Gran # 0.16 H (0.00-0.04) X 10*3/uL Neutrophils # 15.45 H (1.80-7.70) X 10*3/uL Neutrophils # (Manual) 25.30 H (1.3-7.7) k/uL Monocytes # 3.23 H (0.20-1.00) X 10*3/uL Monocytes # (Manual) 4.44 H (0-1.0) k/uL Eosinophils # 0.02 L (0.04-0.35) X 10*3/uL Assessment and Plan Assessment: 1. Urinary bladder mass continue to have hematuria was seen urology and had cystoscopy with biopsy from the bladder and irrigation of many blood clot has been doing well since. -- Large mass in the bladder area seen on the CAT scan with cystoscopy mostly clot with slight irregularity of the posterior wall of the bladder biopsy was taking for possible superficial cancer of the bladder. Result is to follow. 2. Leukocytosis/UTI; urine culture grows greater than 100,000 E. coli; final culture and sensitivities pending 3. Acute blood loss anemia: With significant bleeding had lost 2 g of blood continue to watch for any worsening symptoms repeat CBC in the morning as well. 4. Intractable lower back pain: Has been on pain management with hydrocodone and tramadol along with muscle relaxer only. 5. Uterine prolapse: Has been seeing [facility] [employer] [facility] and has pessary and has been on conservative management only. 6. GI prophylaxis: Patient will be on pantoprazole 40 mg daily. DVT prophylaxis; SCDs only given hematuria CODE STATUS; full code
--- NOTE | 2024-03-29 20:50 | P.PN ---
Subjective Progress Note Date: 03/29/24 Principal diagnosis: Urinary clot retention The patient presented with gross hematuria, and CT scan showed multiple bladder densities. She underwent cystoscopy with evacuation of clot on March 25, 2024. There was no active bleeding. Subtle mucosal irregularity was noted and was resected. Urine culture has shown an E. coli UTI, for which she is currently receiving Rocephin. The patient is currently comfortable and has no complaints. She is voiding without difficulty and denies hematuria. She does report that her bowel movements are hard and dark. Objective - Vital Signs Vital signs: Vital Signs Temp 98.7 F 03/29/24 13:37 Pulse 111 H 03/29/24 13:37 Resp 16 03/29/24 13:37 BP 103/62 03/29/24 13:37 Pulse Ox 96 03/29/24 13:37 FiO2 Intake & Output 03/29/24 03/29/24 03/30/24 06:59 18:59 06:59 Other: Voiding Method Toilet Toilet # Voids 3 1 # Bowel Movements 1 1 - Constitutional General appearance: Present: average body habitus, cooperative, no acute distress - Psychiatric Psychiatric: Present: A&O x's 3 - Labs CBC & Chem 7: 03/29/24 06:11 03/28/24 02:56 Labs: Abnormal Lab Results - Last 24 Hours (Table) 03/29/24 Range/Units 06:11 WBC 20.60 H (4.50-10.00) X 10*3/uL RBC 3.02 L (4.10-5.20) X 10*6/uL Hgb 8.1 L (12.0-15.0) g/dL Hct 25.0 L (37.2-46.3) % MCH 26.8 L (27.0-32.0) pg RDW 17.3 H (11.5-14.5) % Plt Count 106 L (140-440) X 10*3/uL Immature Gran # 0.16 H (0.00-0.04) X 10*3/uL Neutrophils # 15.45 H (1.80-7.70) X 10*3/uL Monocytes # 3.23 H (0.20-1.00) X 10*3/uL Eosinophils # 0.02 L (0.04-0.35) X 10*3/uL Assessment and Plan Assessment: Urine culture shows an E. coli UTI, sensitive to Rocephin. (1) Gross hematuria Current Visit: Yes Status: Acute Priority: High Code(s): R31.0 - GROSS HEMATURIA SNOMED Code(s): 705532424 Plan: - Continue Rocephin. - Await pathology report.
--- NOTE | 2024-03-29 22:19 | P.CONS ---
History of Present Illness - Reason for Consult Consult date: 03/29/24 Leukocytosis Requesting physician: Steven Sanz - Chief Complaint Blood in the urine x days - History of Present Illness Patient is a 83-year-old female with a past medical history significant for back pain former smoker presenting to the hospital 5 days ago fo r evaluation of hematuria that apparently started the day of presentation to the hospital patient on admission was afebrile she did have 1 low-grade fever of 100.2 F on 03/26/2024 no fever have been recorded subsequently patient has been tachycardic but not hypotensive or hypoxic patient did have a white count of 13.2 on admission that jumped up to 34.5 on 03/25/2024 however it is downtrending down to 20.6 as of this morning infectious disease was consulted because of elevated white count during this hospital stay patient did have a abdominal pelvis CT did shows hypodense lesion measuring up to 10.2 cm within the bladder corresponding to the ultrasound in this patient who is status post cystoscopy with evacuation of hematoma does have a biopsy with is currently pending urine culture finalized with an E. coli that is a sensitive pathogen and the patient is on Rocephin 1 g daily at the time my evaluation patient denies having any headache or URI symptoms no chest pain shortness of breath or cough no nausea vomiting abdominal pain or diarrhea rather no bowel movement in the last few days and no further blood in the urine Review of Systems Positive point and negatives has been mentioned in the HPI, complete review of systems was performed and all other systems are negative Past Medical History Past Medical History: No Reported History Additional Past Medical History / Comment(s): back pain History of Any Multi-Drug Resistant Organisms: None Reported Past Surgical History: Appendectomy, Hysterectomy, Tubal Ligation Past Psychological History: No Psychological Hx Reported Smoking Status: Former smoker Past Alcohol Use History: None Reported Past Drug Use History: None Reported - Past Family History Mother Family Medical History: No Reported History Medications and Allergies Home Medications Medication Instructions Recorded Confirmed Type Ibuprofen [Motrin Ib] 400 mg PO TID 03/24/24 03/24/24 History Multivit-Min/FA/Lycopen/Lutein 1 tab PO DAILY 03/24/24 03/24/24 History [Centrum Silver Tablet] Allergies Allergy/AdvReac Type Severity Reaction Status Date / Time No Known Allergies Allergy Verified 03/24/24 11:30 Physical Exam Vitals: Vital Signs Temp Pulse Resp BP Pulse Ox 03/29/24 08:30 115 H 03/29/24 07:09 98.1 F 115 H 16 130/71 96 03/29/24 01:29 98.5 F 117 H 16 104/64 91 L 03/28/24 20:24 123 H 16 03/28/24 19:23 99.2 F 123 H 16 108/61 92 L 03/28/24 14:41 97.6 F 105 H 16 100/63 97 Intake and Output 03/28/24 03/29/24 03/29/24 22:59 06:59 14:59 Output Total 50 Balance -50 Output: Urine 50 Other: Voiding Method Toilet Toilet # Voids 3 1 # Bowel Movements 1 GENERAL DESCRIPTION: Elderly female lying in bed, no distress. No tachypnea or accessory muscle of respiration use. HEENT: Shows Pallor , no scleral icterus. Oral mucous membrane is dry. NECK: Trachea central, no thyromegaly. LUNGS: Unlabored breathing. Clear to auscultation anteriorly. No wheeze or crackle. HEART: S1, S2, regular rate and rhythm. No loud murmur ABDOMEN: Soft, no tenderness , guarding or rigidity, no organomegaly EXTREMITIES: No edema of feet. SKIN: No rash, no masses palpable. NEUROLOGICAL: The patient is awake, alert, mood and affect normal. Results CBC & Chem 7: 03/29/24 06:11 03/28/24 02:56 Labs: Abnormal Lab Results - Last 24 Hours (Table) 03/29/24 Range/Units 06:11 WBC 20.60 H (4.50-10.00) X 10*3/uL RBC 3.02 L (4.10-5.20) X 10*6/uL Hgb 8.1 L (12.0-15.0) g/dL Hct 25.0 L (37.2-46.3) % MCH 26.8 L (27.0-32.0) pg RDW 17.3 H (11.5-14.5) % Plt Count 106 L (140-440) X 10*3/uL Immature Gran # 0.16 H (0.00-0.04) X 10*3/uL Neutrophils # 15.45 H (1.80-7.70) X 10*3/uL Monocytes # 3.23 H (0.20-1.00) X 10*3/uL Eosinophils # 0.02 L (0.04-0.35) X 10*3/uL Assessment and Plan (1) Leukocytosis Current Visit: Yes Status: Acute Code(s): D72.829 - ELEVATED WHITE BLOOD KARLIE L COUNT, UNSPECIFIED SNOMED Code(s): 676538220 (2) UTI (urinary tract infection) Current Visit: No Status: Acute Code(s): N39.0 - URINARY TRACT INFECTION, SITE NOT SPECIFIED SNOMED Code(s): 32642779 Plan: 1patient with significant elevated white count in this patient presented to hospital predominantly with hematuria she was noticed to have a bladder hematoma s/p evacuation and some irregularity of the bladder wall which has been biopsied with the histopathology pending urine culture have been finalized with E. coli etiology of elevated white count more likely related to the urinary source and as the patient white count is trending down and obvious focus of infection we will hold on adding any further workup at this point 2-we will continue with Rocephin 1 g daily and transition to oral Ceftin on discharge We will follow on clinical condition and cultures to further adjust medication if needed Thank you for this consultation we will follow the patient along with you Dictation was produced using [employer] dictation software. please excuse any grammatical, word or spelling errors. Time with Patient: Greater than 30
[2024-03-30 07:41] VITALS: BP 116/72; PULSE 104; RESP 17; TEMP 98.2
--- NOTE | 2024-03-30 12:35 | P.PN ---
Subjective Progress Note Date: 03/30/24 Principal diagnosis: Reason for follow-up is leukocytosis, UTI Patient is a 83-year-old female with a past medical history significant for back pain former smoker presenting to the hospital initially for evaluation of hematuria patient did have abnormal CT with hyperdense lesion status post cystoscopy evacuation of hematoma at the biopsy he reports pending urine with E. coli ID consulted because of elevated white count. On today's evaluation that is 03/30/2024, patient has been afebrile, patient is breathing comfortably and is currently on room air, patient denies having any significant cough no chest pain, patient denies nausea vomiting or abdominal pain, son mention no bowel movement and the patient did stool softener. No new lab has been obtained today Objective - Vital Signs Vital signs: Vital Signs Temp 98.2 F 03/30/24 06:53 Pulse 104 H 03/30/24 06:53 Resp 17 03/30/24 06:53 BP 116/72 03/30/24 06:53 Pulse Ox 95 03/30/24 06:53 FiO2 Intake & Output 03/29/24 03/30/24 03/30/24 18:59 06:59 18:59 Other: Voiding Method Toilet Toilet # Voids 1 1 1 # Bowel Movements 1 1 - Exam GENERAL DESCRIPTION: An elderly female lying in bed in no distress RESPIRATORY SYSTEM: Unlabored breathing , decreased breath sounds at bases HEART: S1 S2 regular rate and rhythm , ABDOMEN: Soft , no tenderness EXTREMITIES: No edema feet - Labs CBC & Chem 7: 03/29/24 06:11 03/28/24 02:56 Assessment and Plan (1) Leukocytosis Current Visit: Yes Status: Acute Code(s): D72.829 - ELEVATED WHITE BLOOD CELL COUNT, UNSPECIFIED SNOMED Code(s): 322448480 (2) UTI (urinary tract infection) Current Visit: No Status: Acute Code(s): N39.0 - URINARY TRACT INFECTION, SITE NOT SPECIFIED SNOMED Code(s): 73598477 Plan: 1patient with significant elevated white count in this patient presented to [facility] predominantly with hematuria she was noticed to have a bladder hematoma s/p evacuation and some irregularity of the bladder wall which has been biopsied with the histopathology pending urine culture have been finalized with E. coli etiology of elevated white count more likely related to the urinary source and as the patient white count is trending down and obvious focus of infection we will hold on adding any further workup at this point 2-patient to continue with Rocephin while inpatient and transition to oral Ceftin on discharge, we will add Colace Dictation was produced using [employer] dictation software. please excuse any grammatical, word or spelling errors. Time with Patient: Less than 30
[2024-03-30] MEDS ORDERED: DOCUSATE 100 MG CAP PO SCH (12:45)
[2024-04-01 15:34] LABS: Albumin 2.85 g/dL (3.80-4.90); Gamma Globulin 1.85 g/dL (0.70-1.50)
--- NOTE | 2024-04-04 07:20 | P.DS ---
Providers Date of admission: 03/24/24 14:53 Expected date of discharge: 03/30/24 Attending physician: Moy Holley Consults: 03/24/24 14:42 Consult Physician Urgent Consulting Provider: Jesús Marquez Consult Reason/Comments: Gross hematuria with bladder mass Do you want consulting provider notified?: Yes 03/26/24 06:14 Consult Physician Routine Consulting Provider: Nish Fu Consult Reason/Comments: Leukomoid reaction or Leukocytosis Do you want consulting provider notified?: Yes 03/29/24 11:17 Consult Physician Routine Consulting Provider: Светлана Morris Consult Reason/Comments: Leukocytosis Do you want consulting provider notified?: Yes Primary care physician: Kristen Curtis Hospital Course: Final diagnosis -Urinary bladder mass continue to have hematuria was seen urology and had cystoscopy with biopsy from the bladder and irrigation of many blood clot has been doing well since. -- Large mass in the bladder area seen on the CAT scan with cystoscopy mostly clot with slight irregularity of the posterior wall of the bladder biopsy was taking for possible superficial cancer of the bladder. Result is to follow. -Leukocytosis/UTI; urine culture grows greater than 100,000 E. coli; final culture and sensitivities pending -Acute blood loss anemia: With significant bleeding had lost 2 g of blood continue to watch for any worsening symptoms repeat CBC in the morning as well. -Intractable lower back pain: Has been on pain management with hydrocodone and tramadol along with muscle relaxer only. -Uterine prolapse: Has been seeing RIVET MAKER and has pessary and has been on conservative management only. -GI prophylaxis -DVT prophylaxis -full code Discharge disposition Patient is being discharged in a stable condition with guarded prognosis to home. Patient will follow-up with Dr. Curtis in the outpatient setting upon discharge. Patient is to continue with oral Ceftin and outpatient follow-up with urology as scheduled. Awaiting pathology report total time taken is greater than 35 minutes. Hospital course This is a 83-year-old female who was recently admitted with concerns for hematuria with a possible urinary bladder mass as there was a large mass in the bladder area noted on CT imaging. Patient is status post cystoscopy with biopsy and currently pending. Patient is continued on IV antibiotics in the form of ceftriaxone showing clinical improvement and will transition to oral Ceftin per ID recommendations with close outpatient follow-up. Patient reports that hematuria has resolved and has been instructed to monitor for any further hematuria. Patient to follow-up with urology outpatient along with primary care provider on discharge. Patient has been cleared for discharge. Please refer to other consultation notes for further HPI. Currently no reports of chest pain, shortness of breath, or palpitations. Patient is afebrile. No reports of nausea or vomiting and patient is tolerating diet. Patient will be discharged home today. Guarded prognosis and high risk for readmissions given significant comorbidities Physical exam: Gen: This is a 83-year-old female who is awake, alert and oriented x 2-3, well- developed, thin built, elderly appearing HEENT: Head is atraumatic, normocephalic. Pupils equal, round. Sclerae is anicteric. NECK: Supple. No JVD. No lymphadenopathy. No thyromegaly. LUNGS: Diminished breath sounds bilaterally otherwise clear to auscultation. No wheezes or rhonchi. No intercostal retractions. HEART: Regular rate and rhythm. No murmur. ABDOMEN: Soft. Bowel sounds are present. No masses. No tenderness. EXTREMITIES: No pedal edema. No calf tenderness. NEUROLOGICAL: Patient is awake, alert and oriented x 23. Cranial nerves 2 through 12 are grossly intact. Please refer to medication reconciliation sheet for a list of medications. The impression and plan of care has been dictated by Ada Hamilton, Nurse Practitioner as directed. Dr. Geremias MD I have performed a history and examination and MDM of this patient, discussed the same with the dictator, and agree with the dictator's assessment and plan as written ,documented as a scribe. Based on total visit time, I have performed more than 50% of the visit. Patient Condition at Discharge: Fair Plan - Discharge Summary Discharge Rx Participant: Yes New Discharge Prescriptions: New Docusate [Colace] 100 mg PO BID #60 cap cefUROXime axetiL [Ceftin] 500 mg PO BID 7 Days #14 tab Calcium Carbonate [Tums] 1,000 mg PO QID PRN tab PRN Reason: Heartburn Acetaminophen Tab [Tylenol] 650 mg PO Q6HR PRN tab PRN Reason: Mild Pain Or Fever > 100.5 Continue Multivit-Min/FA/Lycopen/Lutein [Centrum Silver Tablet] 1 tab PO DAILY Discontinued Ibuprofen [Motrin Ib] 400 mg PO TID Discharge Medication List Multivit-Min/FA/Lycopen/Lutein [Centrum Silver Tablet] 1 tab PO DAILY 03/24/24 [History] Acetaminophen Tab [Tylenol] 650 mg PO Q6HR PRN tab 03/30/24 [Rx] Calcium Carbonate [Tums] 1,000 mg PO QID PRN tab 03/30/24 [Rx] Docusate [Colace] 100 mg PO BID #60 cap 03/30/24 [Rx] cefUROXime axetiL [Ceftin] 500 mg PO BID 7 Days #14 tab 03/30/24 [Rx] Follow up Appointment(s)/Referral(s): None,Stated [REFERRING] - 1-2 days Kristen Curtis MD [Primary Care Provider] - 1 Week Jesús Marquez MD [STAFF PHYSICIAN] - 1 Week Nish Fu [STAFF PHYSICIAN] - 1 Week Activity/Diet/Wound Care/Special Instructions: Activity limited until follow-up Follow-up with primary care provider on discharge Follow-up with urology outpatient in 1 to 2 weeks Continue antibiotics until finished Follow-up with hematology/oncology outpatient Discharge Disposition: HOME SELF-CARE
--- NOTE | 2024-04-08 15:57 | CDI ---
Documentation Clarification Form Date: 04/08/2024 03:45:48 PM From: Brook Kumari Phone: Admit Date: 03/24/2024 02:53:00 PM Patient Name: Lin Durant Visit Number: [id number] Discharge Date: 03/30/2024 03:49:00 PM ATTENTION: The Clinical Documentation Specialists (CDI) and [facility] Coding Staff appreciate your assistance in clarifying documentation. Please respond to the clarification below the line at the bottom and electronically sign. The CDI & [facility] Coding staff will review the response and follow-up if needed. Please note: Queries are made part of the Legal Health Record. If you have any questions, please contact the author of this message via ITS. Doctor/Provider: Moy Holley The final diagnosis of the pathology report states: acute andchronic cystitiswith mucosal erosion(denudingcystitis) and mucosal reactive changes,negative formalignancy. Benign muscularis propria is focally identified. Coding guidelines do not allow coding professionals to code based on pathology results; therefore, clarification is requested. History/risk factors: 83yo F, E Coli UTI, urinaryclotretention, Neutrophilic leukocytosis, blood loss anemia, thrombocytopenia, underweight, uterine prolapse w pessary Clinical Indicators: presented withgross hematuria. CT scanshowed normal upper tracts, but the bladder wasdistendedwith hyperdenselesionsmeasuring up to 10 cm in diameter. Treatment: Several 100 cc ofclot removedfrom the bladder. No activebleeding. Posterior bladder wall irregularity,resected. 20-FrenchFoley catheter was inserted Please clarify if you agree with the pathology report diagnosis of acute andchronic cystitis with bladder erosion: [ XX ] Yes [ ] No [ ] Other (please specify) [ ] Unable to determine (Template Last Revised: August 2020) MTDD
== END 2024-03-30 15:49 | disposition home or self-care (01) | DRG 669 ==
LOC: EC 07:21 → 5NMEDONC 14:53 → 4SSUR 03-25 16:32
PROVIDERS: ADMIT Internal Medicine Geriatric Medicine; ATTEND Internal Medicine Geriatric Medicine
PROC: 0TBB8ZZ Excision of Bladder, Via Natural or Artificial Opening Endoscopic (ICD-10-PCS; principal; 2024-03-25 08:35)
PROC: 0T5B8ZZ Destruction of Bladder, Via Natural or Artificial Opening Endoscopic (ICD-10-PCS; principal; 2024-03-25 08:35)
PROC: 0TCB8ZZ Extirpation of Matter from Bladder, Via Natural or Artificial Opening Endoscopic (ICD-10-PCS; 2024-03-25 08:35)
DX: N30.01 Acute cystitis with hematuria (principal); D62 Acute posthemorrhagic anemia; Z68.1 Body mass index [BMI] 19.9 or less, adult; D69.6 Thrombocytopenia, unspecified; N30.21 Other chronic cystitis with hematuria; N32.89 Other specified disorders of bladder; R63.6 Underweight; N81.4 Uterovaginal prolapse, unspecified; K44.9 Diaphragmatic hernia without obstruction or gangrene; M54.50 Low back pain, unspecified; D72.823 Leukemoid reaction; N93.9 Abnormal uterine and vaginal bleeding, unspecified; B96.20 Unspecified Escherichia coli [E. coli] as the cause of diseases classified elsewhere; Z96.0 Presence of urogenital implants; Z87.891 Personal history of nicotine dependence; Z90.710 Acquired absence of both cervix and uterus
CPT/HCPCS: 36415; 51798; 74177; 76856; 80048; 80053; 81001; 82607; 82728; 82746; 83540; 83550; 83605; 83883; 84145; 84165; 85025; 85027; 85045; 85610; 85652; 85730; 86038; 86334; 86431; 86850; 86900; 86901; 87077; 87086; 87186; 88307; 93005; 96361; 96365; 96366; 96375; 96376; 99285

== ENCOUNTER 2024-05-30 19:07 | Emergency (ER) | payer MEDICARE ==
--- NOTE | 2024-05-30 20:03 | ED ---
Back Pain HPI - General Chief Complaint: Back Pain/Injury Stated Complaint: back pain, BRYN Time Seen by Provider: 05/30/24 19:31 Source: patient, RN notes reviewed, old records reviewed Limitations: no limitations - History of Present Illness Initial Comments: This is a 83-year-old female to the ER for evaluation. Patient is here for evaluation of back pain severe back pain uncontrolled back pain with no recent fall or trauma. 4 days of worsening back pain with history of chronic back pain and malignant bone cancer. Patient is in severe pain today with no other complaints no neurological findings MD Complaint: back pain -: days(s) (4) Severity: moderate Severity scale (1-10): 4 Quality: sharp, aching Consistency: constant Improves With: none Worsens With: none Treatments Prior to Arrival: prescription analgesics - Related Data Home Medications Medication Instructions Recorded Confirmed Multivit-Min/FA/Lycopen/Lutein 1 tab PO DAILY 03/24/24 03/24/24 [Centrum Silver Tablet] Previous Rx's Medication Instructions Recorded Acetaminophen Tab [Tylenol] 650 mg PO Q6HR PRN tab 03/30/24 Calcium Carbonate [Tums] 1,000 mg PO QID PRN tab 03/30/24 Docusate [Colace] 100 mg PO BID #60 cap 03/30/24 cefuroxime axetiL [Ceftin] 500 mg PO BID 7 Days #14 tab 03/30/24 Allergies Allergy/AdvReac Type Severity Reaction Status Date / Time No Known Allergies Allergy Verified 05/30/24 19:29 Review of Systems ROS Statement: Those systems with pertinent positive or pertinent negative responses have been documented in the HPI. ROS Other: All systems not noted in ROS Statement are negative. Past Medical History Past Medical History: No Reported History Additional Past Medical History / Comment(s): back pain History of Any Multi-Drug Resistant Organisms: None Reported Past Surgical History: Appendectomy, Hysterectomy, Tubal Ligation Past Psychological History: No Psychological Hx Reported Smoking Status: Former smoker Past Alcohol Use History: None Reported Past Drug Use History: None Reported - Past Family History Mother Family Medical History: No Reported History General Exam Limitations: no limitations General appearance: alert, in no apparent distress Head exam: Present: atraumatic, normocephalic, normal inspection Eye exam: Present: normal appearance, PERRL, EOMI. Absent: scleral icterus, conjunctival injection, periorbital swelling ENT exam: Present: normal exam, mucous membranes moist Neck exam: Present: normal inspection. Absent: tenderness, meningismus, lymphadenopathy Respiratory exam: Present: normal lung sounds bilaterally. Absent: respiratory distress, wheezes, rales, rhonchi, stridor Cardiovascular Exam: Present: regular rate, normal rhythm, normal heart sounds. Absent: systolic murmur, diastolic murmur, rubs, gallop, clicks GI/Abdominal exam: Present: soft, normal bowel sounds. Absent: distended, tenderness, guarding, rebound, rigid Extremities exam: Present: normal inspection, full ROM, normal capillary refill. Absent: tenderness, pedal edema, joint swelling, calf tenderness Back exam: Present: normal inspection Neurological exam: Present: alert, oriented X3, CN II-XII intact Psychiatric exam: Present: normal affect, normal mood Skin exam: Present: warm, dry, intact, normal color. Absent: rash Course Vital Signs 05/30/24 19:26 Temperature 97.4 F L Pulse Rate 101 H Respiratory 18 Rate Blood Pressure 112/67 O2 Sat by Pulse 95 Oximetry - Reevaluation(s) Reevaluation #1: 05/30/24 20:03 Medical records reviewed Reevaluation #4: Was pt. sent in by a medical professional or institution (, PA, COIL BUILDER, urgent care, hospital, or prison...) When possible be specific @ -no Did you speak to anyone other than the patient for history (EMS, parent, family, police, friend...)? What history was obtained from this source @ -no Did you review nursing and triage notes (agree or disagree)? Why? @ -agree Are old charts reviewed (outside hosp., previous admission, EMS record, old EKG, old radiological studies, urgent care reports/EKG's, prison records)? Report findings @ -yes Differential Diagnosis (chest pain, altered mental status, abdominal pain women, abdominal pain men, vaginal bleeding, weakness, fever, dyspnea, syncope, hea dache, dizziness, GI bleed, back pain, seizure, CVA, palpatations, mental health, musculoskeletal)? @ -prior EKG interpreted by me (3pts min.). @ -yes X-rays interpreted by me (1pt min.). @ -yes negative for acute disease CT interpreted by me (1pt min.). @ -no U/S interpreted by me (1pt. min.). @ -no What testing was considered but not performed or refused? (CT, X-rays, U/S, labs)? Why? @ -none What meds were considered but not given or refused? Why? @ -none Did you discuss the management of the patient with other professionals (professionals i.e. DrVilma, PA, COIL BUILDER, lab, RT, psych nurse, social work coordinator, manager maintenance, teacher, civil preparedness training officer, wrapper caser)? Give summary @ -no Was smoking cessation discussed for >3mins.? @ -no Was critical care preformed (if so, how long)? @ -no Were there social determinants of health that impacted care today? How? (Homelessness, low income, unemployed, alcoholism, drug addiction, transportation, low edu. Level, literacy, decrease access to med. care, alf, rehab)? @ -none Was there de-escalation of care discussed even if they declined (Discuss DNR or withdrawal of care, Hospice)? DNR status @ -no What co-morbidities impacted this encounter? (DM, HTN, Smoking, COPD, CAD, Cancer, CVA, ARF, Chemo, Hep., AIDS, mental health diagnosis, sleep apnea, morbid obesity)? @ -none Was patient admitted / discharged? Hospital course, mention meds given and r oute, prescriptions, significant lab abnormalities, going to OR and other pertinent info. @ - Undiagnosed new problem with uncertain prognosis? @ -no Drug Therapy requiring intensive monitoring for toxicity (Heparin, Nitro, Insulin, Cardizem)? @ -no Were any procedures done? @ -no Diagnosis/symptom? @ - Acute, or Chronic, or Acute on Chronic? @ -Acute Uncomplicated (without systemic symptoms) or Complicated (systemic symptoms)? @ -Complicated Side effects of treatment? @ -no Exacerbation, Progression, or Severe Exacerbation? @ -exacerbation Poses a threat to life or bodily function? How? (Chest pain, USA, NH, pneumonia, PE, COPD, DKA, ARF, appy, cholecystitis, CVA, Diverticulitis, Homicidal, Suicidal, threat to staff... and all critical care pts) @ -yes Reevaluation #5: Differential Back Pain: Strain, zoster, cauda equina syndrome, epidural abscess, vertebral osteomyelitis, discitis, fracture, subluxation, disc herniation, DJD, spinal stenosis, dissection, AAA, pancreatitis, peptic ulcer disease, pyelonephritis, kidney stone, this is not meant to be an all-inclusive list. Disposition Clinical Impression: Thoracic back pain, Mid back pain, Vertebral compression fracture Disposition: HOME SELF-CARE Condition: Fair Instructions (If sedation given, give patient instructions): Acute Low Back Pain (ED), Vertebral Compression Fracture (ED) Is patient prescribed a controlled substance at d/c from ED?: No Referrals: Kristen Curtis MD [Primary Care Provider] - 1-2 days Time of Disposition: 22:30
[2024-05-30] MEDS: HYDROmorphone 1 MG/ML 1 ML SYRINGE IM STA (20:30)
--- NOTE | 2024-05-30 21:16 | XR ---
EXAMINATION TYPE: XR chest 1V DATE OF EXAM: 05/30/2024 8:37 PM COMPARISON: Chest radiographs from 12/08/2023, 12/19/2019/CT CLINICAL INDICATION: Female, 83 years old with history of pain; [facility] TECHNIQUE: XR chest 1V Frontal view of the chest. FINDINGS: Lungs/Pleura: Focal airspace opacity in the right upper lung remains present. There is no evidence of pleural effusion, focal consolidation, or pneumothorax. Pulmonary vascularity: Unremarkable. Heart/mediastinum: Cardiomediastinal silhouette is unremarkable. Musculoskeletal: No acute osseous pathology. IMPRESSION: 1. No acute cardiopulmonary disease/process. 2. Scattered interstitial opacities throughout the lungs. 3. Right upper lung pulmonary nodules again redemonstrated. Seen dating back to 12/19/2019. [facility], , 05/30/2024 9:13 PM
--- NOTE | 2024-05-30 21:32 | CT ---
EXAMINATION TYPE: CT lumbar spine wo con DATE OF EXAM: 05/30/2024 9:04 PM COMPARISON: CT 03/24/2024. CLINICAL INDICATION: Female, 83 years old with history of pain; [facility], Pt presents to ED with family fo r mid back pain for the past few days. Pt denies any injuries to back. TECHNIQUE: Multiple axial images were obtained from the midportion of T11 through the sacroiliac seema nts. Soft tissue and bone windows in coronal and sagittal planes were obtained and reviewed. 3-D ref ormats of the bones were created on a separate workstation and submitted for review. Contrast used: mL of , (None, if empty). Oral contrast used: (None, if empty). CT DLP: 429.6 mGycm, Automated exposure control for dose reduction was used. FINDINGS: Alignment: There are 5 lumbar type vertebral bodies within normal alignment. Bone: Compression deformities at nearly every level of the spine with some sclerosis at T11 endplate which is new from prior without 50% height loss. No evidence for significant spinal canal stenosis. L 1 vertebral body superior endplate deformity with cortical buckling is similar to prior.. Discs: T12-L1: No spinal canal or neural foraminal stenosis is identified. L1-L2: No spinal canal or neural foraminal stenosis is identified. L2-L3: No spinal canal or neural foraminal stenosis is identified. L3-L4: No spinal canal or neural foraminal stenosis is identified. L4-L5: No spinal canal or neural foraminal stenosis is identified. L5-S1: No spinal canal or neural foraminal stenosis is identified. Other: Moderate hiatal hernia present. Centrilobular emphysema changes. Atherosclerosis of the arteri al vasculature. Left renal probable cyst. Moderate amount of stool throughout the colon. IMPRESSION: 1. New cortical irregularity involving the T11 vertebrae when compared to 03/24/2024 suggesting a ac hector/subacute fracture. No significant retropulsion. There is up to 50% height loss. 2. Stable L1 vertebral body compression deformity with superior endplate chronic cortical buckling. 3. Moderate hiatal hernia. 4. [id number] emphysema. [facility], , 05/30/2024 9:30 PM
[2024-05-30] MEDS: ACET/COD 300 MG/30 MG STARTER PACK 6 TAB BTL PO STA (23:16)
[2024-05-30] MEDS: traMADol 50 MG STARTER PACK 3 TAB BTL PO STA (23:17)
[2024-05-30 23:52] VITALS: BP 124/78; PULSE 87; RESP 17; TEMP 97.8
== END 2024-05-30 23:27 | disposition home or self-care (01) ==
LOC: EC 19:07
DX: S22.009A Unspecified fracture of unspecified thoracic vertebra, initial encounter for closed fracture (principal); G89.29 Other chronic pain; Z87.891 Personal history of nicotine dependence; X58.XXXA Exposure to other specified factors, initial encounter
CPT/HCPCS: 71045; 72131; 99285; 96372; J1171

== ENCOUNTER → 2024-07-30 | Outpatient (CLI) | payer MEDICARE ==
--- NOTE | 2024-07-31 07:58 | BD ---
EXAMINATION TYPE: Axial Bone Density DATE OF EXAM: 07/30/2024 CLINICAL HISTORY: 83 years old Female. ICD-10 CODE: M80.80XA OTH OSTEOPOR W CURRENT PATH FRACTURE, U NS , Additional History: Height: 59 Weight: 89 FRAX RISK QUESTIONS: Family History (Parent hip fracture): no History of Fracture in Adulthood: yes Secondary Osteoporosis: no Rheumatoid Arthritis: no RISK FACTORS HISTORY OF: Surgery to Spine/Hip(right/left)/Wrist (right/left): no MEDICATIONS: Thyroid Medications: no Osteoporosis Medications: no EXAM MEASUREMENTS: Bone mineral densitometry was performed using the [employer] System. Bone mineral density as measured about the Lumbar spine is: ----- L1-L4(G/cm2): 0.640 T Score Values are as follows: ----- L1: -4.5 ----- L2: -4.7 ----- L3: -4.8 ----- L4: -4.2 ----- L1-L4: -4.5 Z Score Values are as follows: ----- L1: -1.8 ----- L2: -2.0 ----- L3: -2.1 ----- L4: -1.5 ----- L1-L4: -1.8 Bone mineral density baseline Bone mineral density about the R hip (g/cm2): 0.633 Bone mineral density about the L hip (g/cm2): 0.619 T Score values are as follows: -----R Neck: -3.2 -----L Neck: -3.1 -----R Total: -3.0 -----L Total: -3.1 Z Score values are as follows: -----R Neck: -0.4 -----L Neck: -0.3 -----R Total: -0.2 -----L Total: -0.4 Bone mineral density baseline FRAX%s: The graph provided illustrates a 20.7% chance for a major osteoporotic fx and a 9.6% chance f or the hips probability for fx in 10 years time. IMPRESSION: Osteoporosis (T Score less than -2.5). There is increased fracture risk and therapy is usually indicated based on age. Re-Screen 1-2 years. NOTE: T-SCORE=SD OF THE YOUNG ADULT MEAN. [facility], , 07/31/2024 7:56 AM
== END | disposition home or self-care (01) ==
LOC: RADBDWWP 16:02
PROVIDERS: ATTEND Internal Medicine Rheumatology
DX: M80.80XA Other osteoporosis with current pathological fracture, unspecified site, initial encounter for fracture (principal); M85.89 Other specified disorders of bone density and structure, multiple sites
CPT/HCPCS: 77080